=== PATIENT | female | born 1935 | race Caucasian/White ===

== ENCOUNTER 2016-08-18 02:02 | Observation (INO) | payer OTHER, MEDICARE ==
[~2016-08-18] VITALS: Ht 157.5 cm; Wt 64.9 kg
[~2016-08-18 02:02] MED LIST: ADVAIR 250-501 EACH INH; ADVAIR DISKU 11 UNIT; ADVAIR DISKUS 21 DSK PO; AMBIEN (MONOGRAP5 MG PO; AUGMENTIN 875-1 EACH PO; AUGMENTIN 875875 MG PO; CHILDREN'S ASPI81 M1 PO; CIPRO 500MG TA500 MG PO; CIPROFLOXACIN500 MG PO; COUMADIN 5 MG TA5 MG PO; FLEXERIL10 MG PO; IPRAT-ALBUT 0.5-3 ML INH; LEVOTHYROXINE50 MCG PO; LIDODERM 5% PAT1 PAT EXT; LOVASTATIN40 M1 PO; MOBIC7.5 MG PO; MUCINEX ER600 MG PO; NORVASC5 M1 PO; PERCOCET 325 MG1 TA2 PO; PREDNISONE 20MG20 MG PO; PREDNISONE10 MG PO; PREDNISONE5 M1 PO; PREDNISONE5 MG PO; PROAIR HFA8.5 GM INH; PROBIOTIC & ACI1 CAP PO; TRAMADOL50 MG PO; TYLENOL #31 TAB PO; TYLENOL ARTHRI650 M1 PO; TYLENOL ARTHRI650 MG PO; TYLENOL TAB 32325 MG PO; TYLENOL325 M1 PO; VALIUM 10 MG. T10 MG PO; ZITHROMAX Z-PA250 MG PO
--- NOTE | 2016-08-18 15:41 | RADIOLOGY REPORT ---
EXAMINATION: XR ABDOMEN CLINICAL INDICATION: Right ureteroscopy and lithotripsy. Retrograde and stent insertion in the OR. COMPARISON: Abdominal x-ray 07/20/2016. CT scan of the abdomen and pelvis 04/21/2016. TECHNIQUE: 7 intraoperative fluoroscopic images were obtained. Imaging provided for Dr. Abby Rowley. FINDINGS: The initial image demonstrates a coiled guidewire in the region of the right renal collecting system. There are multiple surgical clips in the right upper quadrant consistent with prior cholecystectomy. The second image demonstrates a catheter and guidewire over the region of the right kidney. Consecutive images demonstrates retrograde pyelogram of the right kidney. The final image demonstrates drainage of contrast from the right renal collecting system, and removal of the guidewire. IMPRESSION: 1. Intraoperative imaging of right retrograde pyelogram and stent.
--- NOTE | 2016-08-18 16:11 | NUR ---
PATIENT ARRIVED TO FLOOR IN STRETCHER WITH DISTRIBUTION, A/OX3, ROOM AIR, IV SITE INTACT, FLUIDS RUNNING. PAIN 2/10 TO RT ABDOMEN, WALKED W ASSIST X1 TO TOILET, VOIDED HEMATURIC URINE, EXPECTED AFTER PROCEDURE. SKIN INTACT, ORIENTED TO ROOM, BED ALARM PLACED, BED IN LOW, LOCKED POSITION.
[2016-08-18 16:29] VITALS: BP 118/58
[2016-08-19 00:17] VITALS: BP 134/64
[2016-08-19] MEDS ORDERED: FLOMAX0.4 M1 PO (07:37)
--- NOTE | 2016-08-19 07:40 | Patient Discharge Instructions ---
Discharge Instructions General Discharge Information You were seen/treated for: RIGHT KIDNEY STONE You had these procedures: RIGHT URETEROSCOPY, LASER LITHOTRIPSY, URETERAL STENT PLACEMENT Watch for these problems: FEVER GREATER THAN 101F, ABDOMINAL PAIN, BACK PAIN Special Instructions: BEGIN TAKING FLOMAX DAILY Diet Continue normal diet: Yes Activity Full Activity/No Limits: Yes Acute Coronary Syndrome Inclusion Criteria At DC or during hospital stay patient has or had the following: ACS DIAGNOSIS No Discharge Core Measures Meds if any: Prescribed or Continued at Discharge Meds if any: NOT Prescribed or Continued at Discharge Congestive Heart Failure Inclusion Criteria At DC or during hospital stay patient has or had the following: CHF DIAGNOSIS No Discharge Core Measures Meds if any: Prescribed or Continued at Discharge Meds if any: NOT Prescribed or Continued at Discharge Cerebrovascular accident Inclusion Criteria At DC or during hospital stay patient has or had the following: CVA/TIA Diagnosis No Discharge Core Measures Meds if any: Prescribed or Continued at Discharge Meds if any: NOT Prescribed or Continued at Discharge Venous thromboembolism Inclusion Criteria VTE Diagnosis No VTE Type NONE VTE Confirmed by (Test) NONE Discharge Core Measures - Per Current guidelines, there needs to be overlap - treatment for the first 5 days of Warfarin therapy. - If discharged on Warfarin prior to 5 days of - overlap therapy, the patient will need to be - assessed for post discharge needs including - *Post discharge parental anticoagulation - *Warfarin and/or parental anticoagulation education - *Follow up date to check INR post discharge At least 5 days overlap therapy as Inpatient No Meds if any: Prescribed or Continued at Discharge Note: Overlap Therapy is Warfarin and Anticoagulant Meds if any: NOT Prescribed or Continued at Discharge
[2016-08-19 08:00] VITALS: BP 128/60
--- NOTE | 2016-08-19 12:15 | NUR ---
NURSING NOTE: PATIENT DISCHARGED TO HOME SELF CARE THIS AFTERNOON. PATIENT A/OX3, DENIES PAIN AT THIS TIME. IV DISCONTINUED AT THIS TIME. ALL PAPERWORK GIVEN AND EDUCATED TO PATIENT AND SON. PRESCRIPTION PICKED UP BY DAUGHTER FROM PHARMACY LAST EVENING PER PATIENT AND PATIENT'S SON. ALL BELONGINGS LEFT WITH PATIENT. PATIENT LEFT FLOOR VIA WHEELCHAIR WITH VOLUNTEER AND FAMILY.
--- NOTE | 2016-08-23 10:42 | Operative Report ---
Operative/Inv Procedure Report Surgery Date: 08/18/16 Name of Procedure: right ureteroscopy with laser lithotripsy, stone fragment removal, retrograde pyelogram and stent placement Pre-Operative Diagnosis: right renal stone Post-Operative Diagnosis: same Estimated Blood Loss: scant Surgeon/Technology Applications Engineer: ERIC HARDY MD Anesthesia: laryngeal mask airway Drains: [id number] Specimens: stone fragments Complications: none Condition: stable Operative Indication: right renal stone with two failed ESWls Operative/Procedure Note Note: 81yo female with two ESWLs with no change in her right kidney stone. She was then counseled about right ureteroscopy with laser lithotripsy. Discussed the hardness of her stone given the two failed ESWLs. Answered all questions. Consented for right URS with laser lithotripsy, stone extraction, stent placement, possible retrorgrade pyelogram Patient identified in the holding area and taken to the operating room. She was placed on the operating table in the supine position. Time out was performed and IV antibiotics were given. An LMA was placed and the patient was positioned in the dorsal lithotomy position. She was prepped and draped in the standard sterile fashion. Cystoscopy was performed first and a sensor guidewire was placed without difficulty. A Coloplast ureteral access sheath was then used to place the second wire. The flexible digital scope was then placed into the renal pelvis. Unfortunately the Coloplast sheath was too long and cunbersome to use during the surgery so it was switched out for a Bard ureteral access sheath. The stone was easily identified in the renal pelvis toward the lower pole. It was white crystalline in appearance and very hard. It was lasered with a 400 micron fiber to smaller fragments. These fragments were then removed using a no tip Colopast basket. The fragments were sent for anlaysis. No large fragments remained only dustings of the stone. All the calyces were examined twice to see if any fragments escaped. A retrograde pyelogram was performed and no filling defects to suggest remaining fragments were appreciated. The ureteral access sheath was removed while viewing the ureteral outoing simultaneously. The remaining wire was then used to place a silicone Coloplast ureteral stent 6x24cm in length with the cystoscope. The patient tolerated the procedure well. Findings: large white crystalline stone in the renal pelvis toward the lower pole.
== END 2016-08-19 12:20 ==
LOC: ENRESERVTM → ENRESERVDT → STS 02:02 → PACUH 14:45 → ENPENDDIS 14:45 → 2NB 16:00
PROVIDERS: ADMIT Urology
DX: N20.0 Calculus of kidney (principal); J44.9 Chronic obstructive pulmonary disease, unspecified; M06.9 Rheumatoid arthritis, unspecified; E03.9 Hypothyroidism, unspecified; I10 Essential (primary) hypertension; M54.30 Sciatica, unspecified side; M81.0 Age-related osteoporosis without current pathological fracture; E78.5 Hyperlipidemia, unspecified
CPT/HCPCS: 74000; 82355; J0131; J0690; J1630; J2405; J3490; J7512

== ENCOUNTER 2016-09-03 10:04 | Inpatient (IN) | payer OTHER, MEDICARE ==
[~2016-09-03] VITALS: Ht 157.5 cm; Wt 63.5 kg
[~2016-09-03 10:04] MED LIST changes: +FLOMAX0.4 M1 PO
--- NOTE | 2016-09-03 10:08 | NUR ---
PER DAUGHTER, NAUSEA AND COUGH, VOMITING LAST NIGHT, TEMP THIS AM, DENIES PAIN APPEARS PALE
--- NOTE | 2016-09-03 10:13 | ED GI/GU/ABDOMINAL COMPLAINT ---
History of Present Illness General Chief Complaint: Nausea, Vomiting, Diarrhea Stated Complaint: NVD Source: patient, family, old records, EMS Exam Limitations: no limitations Allergies Coded Allergies: hydromorphone (From DILAUDID) (Severe, SYNCOPE 04/21/16) morphine (Severe, SYNCOPE 04/21/16) oxycodone (Severe, UNKNOWN 09/19/15) tramadol (Severe, SYNCOPE 04/21/16) Sulfa (Sulfonamide Antibiotics) (Intermediate, HIVES 09/19/15) latex (Intermediate, BAD RASH 06/15/16) shrimp (HIVES, RASH 09/19/15) Reconcile Medications Acetaminophen (Tylenol Arthritis) 650 MG TABLET.ER 1 TAB PO BID PAIN ( Reported) Albuterol Sulfate (Proair Hfa) 8.5 GM HFA.AER.AD 2 PUF INH Q4-6 PRN PRN COPD (Reported) Reason to Stop at ADM: [facility] ORDERS Amlodipine Besylate (Norvasc) 5 MG TABLET 1 TAB PO DAILY HYPERTENSION ( Reported) Aspirin (Children's Aspirin) 81 MG TAB.CHEW 1 TAB PO DAILY HEART (Reported) Fluticasone/Salmeterol (Advair 250-50 Diskus) 1 EACH BLST.W.DEV 1 PUF INH BID COPD (Reported) Reason to Stop at ADM: [facility] ORDERS Ipratropium/Albuterol Sulfate (Iprat-Albut 0.5-3(2.5) MG/3 Ml) 0.5 MG-3 MG (2.5 MG BASE)/3 ML AMPUL.NEB 1 PO PRN SHORTNESS OF BREATH (Reported) Levothyroxine Sodium 50 MCG TABLET 1 TAB PO DAILY AC THYROID (Reported) Lovastatin 40 MG TABLET 1 TAB PO DAILY HYPERCHOLESTEROL (Reported) with food Prednisone 5 MG TABLET 1 TAB PO DAILY COPD/RA (Reported) Tamsulosin HCl (Flomax) 0.4 MG CAP.ER.24H 1 CAP PO DAILY BLADDER Triage Note: PER DAUGHTER, NAUSEA AND COUGH, VOMITING LAST NIGHT, TEMP THIS AM, DENIES PAIN APPEARS PALE Triage Nurses Notes Reviewed? yes ? N Is pt currently ? No Onset: Abrupt Duration: day(s): (2), constant Timing: recent history Quality/Severity: aching Severity Numbers: 6 Location: unknown Radiation: no radiation Activities at Onset: none Prior Abdominal Problems: none Modifying Factors: Worsens With: coughing. Associated Symptoms: nausea/vomiting, COUGH FEVER CHILLS HPI: 81-year-old female with history of COPD kidney stones with recent ureteral stent presents emergency room for evaluation complaining of generalized bodyaches subjective fever chills nausea and vomiting for the past 2 days. She's been unable to tolerate Motrin or Tylenol by mouth. The patient's history is significant in that she recently had a ureteral stent placed by Dr. Rowley last week. Patient denies any urinary symptoms of frequency urgency dysuria. No diarrhea no hematemesis. She does not use O2 at home. The patient reports that she is feeling more short of breath than baseline she is complaining of a nonproductive cough no hemoptysis no chest pain. She states she's been feeling dizzy and lightheaded since the symptoms began. She did receive a flu vaccination this year. (MELI WATT) Vital Signs & Intake/Output Vital Signs & Intake/Output Vital Signs Date Time Temp Pulse Resp B/P Pulse O2 O2 Flow FiO2 Ox Delivery Rate 09/03 1429 98.6 76 16 110/56 96 Nasal 2.0L Cannula 09/03 1414 80 16 96/49 96 Nasal 2.0L Cannula 09/03 1359 78 16 95/50 95 Nasal 2.0L Cannula 09/03 1329 88 106/53 09/03 1321 98.8 100 22 95 Nasal 2.0L Cannula 09/03 1259 88 112/55 09/03 1234 99.0 98 20 09/03 1234 96 Nasal 2.0L Cannula 09/03 1229 82 101/51 09/03 1201 101.0 09/03 1143 95 Nasal 2.0L Cannula 09/03 1140 101.0 112 09/03 1135 115 16 120/54 95 Nasal 2.0L Cannula 09/03 1108 100.8 110 20 120/60 96 Nasal Cannula 09/03 1100 94 Nasal 2.0L Cannula 09/03 1013 102.8 09/03 1006 102.8 130 26 163/71 94 Room Air Past History Travel History Traveled to [place] past 21 day No Medical History Any Pertinent Medical History? 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 FATHER (heart failure from severe asthma). . Hx Contributory? No (MELI WATT) Review of Systems Review of Systems Constitutional: Reports: see HPI. All Other Systems: Reviewed and Negative Comments Review of systems: See HPI, All other systems negative. Constitutional, chills fever, malaise HEENT: no sore throat no congestion, no ear pain Cardiovascular: No chest pain , no palpitation Skin, no rashes, no change in skin Respiratory: dyspnea cough no sputum no hemoptysis GI: nausea vomiting, no diarrhea, no bloating/constipation : No dysuria No hematuria Muscle skeletal: No joint pain, no joint swelling, no back pain, no neck pain, Neurologic: no headache Psych: No stress Heme/endocrine: No bruising no bleeding Immunology: No lymphadenopathy (MELI WATT) Physical Exam Physical Exam General Appearance: well developed/nourished, alert, awake Gastrointestinal: normal bowel sounds, soft, non-tender Comments: Well-developed well-nourished person in no acute distress HEENT: Normal EENT exam; PERRL, EOMI, HEAD is atraumatic. moist mucous membranes. Neck: Supple, no lymphadenopathy, normal range of motion Back: Nontender, no CVA tenderness. Full range of motion Cardiovascular: Regular rate and rhythms no murmurs rubs Respiratory: Mild respiratory distress. Patient speaking in full complete sentences. Bilateral wheezing no rales rhonchi Abdomen: Soft, nontender nondistended, no appreciable organomegaly. Normal bowel sounds. No rebound/guarding, No ascites. Extremity: No edema, full range of motion of extremities Neuro: Alert oriented x3, motor sensory normal, There were no obvious focal neurologic abnormalities. Skin: No appreciable rash on exposed skin, skin is warm and dry. Psych: Mood and affect is normal, memory and judgment is normal. Core Measures ACS in differential dx? Yes Severe Sepsis Present: No Septic Shock Present: No (NAZARIO BECK,MELI) Progress Differential Diagnosis: AMI, bowel obstruction, diverticulitis, ischemic bowel, inflamm bowel dis, kidney stone, pancreatitis, peptic ulcer, PUD/GERD, perforated viscous, UTI/pyelo, SEPSIS INFLUENZA Diagnostic Imaging: Viewed by Me: Radiology Read, CT Scan. Discussed w/RAD: Radiology Read, CT Scan. Radiology Impression: PATIENT: COURTNEY GEIGER PRESENT AGE: 81 PATIENT ACCOUNT NO: [id number] : 35 LOCATION: ER ORDERING PHYSICIAN: MELI BECK SERVICE DATE: 09/03/16 EXAM TYPE: RAD - XRY- PORTABLE CHEST XRAY EXAMINATION: XR PORTABLE CHEST CLINICAL INFORMATION: Fever, cough COMPARISON: Chest radiographs 04/21/2016, 03/13/2016 TECHNIQUE: Portable upright AP view of the chest was obtained. FINDINGS: There is mild hyperinflation similar to prior studies. The lungs appear grossly clear with no vascular congestion, airspace consolidation, or effusion. Cardiac and hilar and mediastinal contours and bony structures are stable. IMPRESSION: Lungs clear. No acute intrathoracic disease. DICTATED BY: YENI COPELAND MD DATE/TIME DICTATED :09/03/161046 DIGESTER CAPPER:ALINE DATE/TIME TRANSCRIBED:09/03/161046 CONFIDENTIAL, DO NOT COPY WITHOUT APPROPRIATE AUTHORIZATION. < Electronically signed in Other Vendor System> SIGNED BY: YENI COPELAND MD 09/03/16 1054, PATIENT: COURTNEY GEIGER PRESENT AGE: 81 PATIENT ACCOUNT NO: [id number] : 35 LOCATION: ER ORDERING PHYSICIAN: MELI BECK SERVICE DATE: 09/03/16 EXAM TYPE: CAT - CT ABD & PELVIS W/O IV CONTRAS EXAMINATION: CT ABDOMEN AND PELVIS WITHOUT CONTRAST CLINICAL INFORMATION: Nausea, vomiting, diarrhea. Recent ureteral stent placement. Evaluate for pyelonephritis or other intra-abdominal pathology. COMPARISON: CT scan of the abdomen and pelvis dated 04/21/2016 and 10/19/2012. TECHNIQUE: Multidetector volumetric imaging was performed from the superior aspect of the liver through the pubic symphysis. Sagittal and coronal reformatted images were obtained on the technologist workstation. DLP: 285.48 mGy-cm. FINDINGS: LUNG BASES: Tubular bronchiectasis is again seen in the right middle lobe, right lower lobe and lingula with associated patchy groundglass opacities, unchanged compared to the prior CT scan. LIVER, GALLBLADDER, AND BILIARY TREE: The liver is normal in size, shape, and attenuation. No focal hepatic lesion on noncontrast imaging. No biliary ductal dilatation is present. The gallbladder is surgically absent with multiple lindsay seen in the gallbladder fossa. PANCREAS: Diffusely atrophic but otherwise unremarkable on noncontrast exam. SPLEEN, ADRENAL GLANDS: Unremarkable on noncontrast imaging. KIDNEYS, URETERS, AND BLADDER: The kidneys are normal in size, shape, and attenuation. A double-J right ureteral stent is in place with the proximal pigtail in the right renal pelvis and the distal pigtail in the bladder. There are some amorphous hyperdensities seen within the mid and lower pole calyces of the right kidney, possibly representing milk of calcium or debris from previously seen stones. In addition, in the mid right kidney, there is a 0.5 x 0.4 cm calcification seen, unchanged from prior exam. No definite ureteral or bladder calculi are seen. No right-sided hydronephrosis or hydroureter is seen. No perinephric stranding. The left kidney is unremarkable with no calculi or hydronephrosis is seen. Left ureter is decompressed and unremarkable. GASTROINTESTINAL TRACT: There is a suture line seen in the mid sigmoid colon, appearing unremarkable. Diffuse moderate colonic diverticulosis is seen with no evidence of acute diverticulitis. The cecum is mildly fluid-filled but otherwise unremarkable. The small and large bowel are otherwise unremarkable. The appendix is not seen. ABDOMINAL WALL: There is a small fat-containing umbilical hernia. LYMPH NODES, VASCULAR: Moderate atherosclerotic calcifications of the aorta are noted. There is an infrarenal abdominal aortic aneurysm with maximal AP diameter of 3.5 cm, unchanged. No periaortic collections. No significant abdominal or pelvic adenopathy or free fluid collection. PELVIC VISCERA: The patient is status post hysterectomy and presumably oophorectomy. No suspicious adnexal mass. OSSEOUS STRUCTURES: Mild vertebral spondylosis is seen in the lower lumbar spine and moderate facet arthropathy is noted. A left hip compression screw and intramedullary chino are partially imaged. IMPRESSION: 1. Double-J right ureteral stent is in place with no evidence of residual hydronephrosis. 2. Mid right renal calculus is unchanged. Other previously seen larger calcifications are no longer visualized and instead, there is small stone debris versus milk of calcium seen in the mid and lower pole calyces. 3. Without the benefit of intravenous contrast, evaluation for pyelonephritis is limited. However, no secondary signs of pyelonephritis are noted. 4. No change in infrarenal abdominal aortic aneurysm, measuring 3.5 cm in maximal diameter. 5. 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 6. Moderate colonic diverticulosis. DICTATED BY: ZUNILDA BRITO MD DATE/TIME DICTATED:09/03/161215 DIGESTER CAPPER:ALINE DATE/TIME TRANSCRIBED:1215 CONFIDENTIAL, DO NOT COPY WITHOUT APPROPRIATE AUTHORIZATION. < Electronically signed in Other Vendor System> SIGNED BY: ZUNILDA BRITO MD 09/03/16 1239 Initial ED EKG: sinus tach at 100, nonspecific ST segment changes normal axis Rhythm Strip: normal sinus rhythm (MELI WATT) Plan of Care: Orders Procedure Date/time Status CBC WITHOUT DIFFERENTIAL 09/04 0600 Active BASIC ELECTROLYTES PLUS BUN&CR 09/04 0600 Active Heart Healthy Diet 09/03 D Active Pathway - chart 09/03 1353 Active House Staff 09/03 1353 Active Patient Data 09/03 1353 Active Code Status 09/03 1353 Active Patient Data 09/03 1341 Active Patient Data 09/03 1339 Active LACTIC ACID 09/03 1314 Active VIRAL CULTURE 09/03 1111 Active CULTURE,URINE 09/03 1038 Active URINALYSIS 09/03 1038 Complete EKG 09/03 1023 Active BLOOD CULTURE 09/03 1014 Active TROPONIN LEVEL 09/03 1014 Complete LIPASE 09/03 1014 Complete LACTIC ACID 09/03 1014 Complete COMPREHENSIVE METABOLIC PANEL 09/03 1014 Complete CBC WITHOUT DIFFERENTIAL 09/03 1014 Complete AMYLASE 09/03 1014 Complete RAPID VIRAL INFLUENZA A 09/03 1009 Complete VTE Mechanical Prophylaxis 09/03 UNK Active Current Medications Sig/Maya Start time Last Medication Dose Stop Time Status Admin Enoxaparin Sodium 40 MG DAILY 09/04 1000 AC (Lovenox) Sodium Chloride 1,000 ML ONCE ONE 09/03 1500 AC (Normal Saline 0.9%) 09/03 2138 Acetaminophen 650 MG Q6P PRN 09/03 1400 AC (Tylenol) Acetaminophen 1,000 MG Q8 PRN 09/03 1400 AC (Ofirmev) Ibuprofen 600 MG Q6P PRN 09/03 1400 AC (Motrin) Oseltamivir Phosphate 75 MG ONCE ONE 09/03 1145 CAN (Tamiflu 75MG) 09/03 1146 Ondansetron HCl 4 MG ONCE ONE 09/03 1030 CAN (Zofran) 09/03 1031 Laboratory Tests 09/03/16 1111: Virus Culture Pending 09/03/16 1108: Urine Color YEL, Urine Clarity CLDY H, Urine pH 6.5, Ur Specific [place] 1.020, Urine Protein 100 H, Urine Ketones NEG, Urine Nitrite NEG, Urine Bilirubin NEG, Urine Urobilinogen 0.2, Ur Leukocyte Esterase MOD H, Ur Microscopic SEDIMENT EXAMINED, Urine WBC PACKD H, Ur Epithelial Cells FEW, Urine Hemoglobin LARGE H , Urine Glucose NEG 09/03/16 1014: Anion Gap 15, Estimated GFR 53 L, BUN/Creatinine Ratio 25.0, Glucose 127 H, Lactic Acid 1.8, Calcium 9.3, Total Bilirubin 0.7, AST 55 H, ALT 35, Alkaline Phosphatase 69, Troponin I 0.10, Total Protein 7.4, Albumin 4.1, Globulin 3.3, Albumin/Globulin Ratio 1.2, Amylase < 30 L, Lipase 56, CBC w Diff MAN DIFF ORDERED, RBC 4.63, MCV 90.6, MCH 29.8, RDW 13.6, MPV 7.6, Gran % 86.5 H, Lymphocytes % 9.6 L, Monocytes % 3.6, Eosinophils % 0.1, Basophils % 0.2, Absolute Granulocytes 10.2 H, Segmented Neutrophils 73, Band Neutrophils 13 H, Absolute Lymphocytes 1.1 L, Lymphocytes 8 L, Monocytes 5, Absolute Monocytes 0.4, Absolute Eosinophils 0, Absolute Basophils 0, Metamyelocytes 1, Platelet Estimate ADEQUATE, Normocytic RBCs VERIFIED, Normochromic RBCs VERIFIED, PUBS MCHC 32.9 L Microbiology 09/03 1111 NASOPHARYN: Influenza Virus A & B Rapid Smear - COMP INFLUENZA TYPE A 09/03 1108 URINE ROUT: Urine Culture - RECD 09/03 1025 BLOOD: Blood Culture - RECD 09/03 1014 BLOOD: Blood Culture - RECD Labs ordered old records reviewed patient medicated with Tylenol IV IV fluids DuoNeb ordered; 125 09/03/2016 11:53:02 AM discussed with patient and family at length all lab results of the pending CAT scan case discussed with Dr. Costello Tamiflu 75 mg by mouth ordered I discussed the patient and her family at least all of her lab findings and CT findings need for admission which she is in agreement with. (MELI WATT) Departure Departure Time of Disposition: 1258 Disposition: STILL A PATIENT Condition: Stable Clinical Impression Primary Impression: Influenza Secondary Impressions: COPD exacerbation Referrals: CHAPO CARNEY,ERON Miranda (PCP/Family) Departure Forms: Customer Survey General Discharge Information Admission Note Spoke With: TALI HARRIS MD Documentation of Exam: Documentation of any treatments & extenuating circumstances including Concerns Regarding Discharge (functional status, medication knowledge or non-compliance, living conditions, etc.) that warrant an admission rather than observation: IV steroids IV antibiotics, Tamiflu IV fluids, trend labs antipyretics as needed premature discharge would BE medically harmful (MELI WATT) PA/BALL WINDER Co-Sign Statement Statement: ED Attending supervision documentation- [x] I saw and evaluated the patient. I have also reviewed all the pertinent lab results and diagnostic results. I agree with the findings and the plan of care as documented in the PA's/BALL WINDER's documentation. [] I have reviewed the ED Record and agree with the PA's/BALL WINDER's documentation. [] Additions or exceptions (if any) to the PAs/BALL WINDER's note and plan are summarized below: [] (TARA CARNEY,CIARA Nieves)
[2016-09-03 10:31] LABS: ABSOLUTE BASOPHIL COUNT 0 /CUMM (0.0-0.2); ABSOLUTE EOSINOPHIL COUNT 0 /CUMM (0.0-0.7); ABSOLUTE GRANULOCYTE CT 10.2 /CUMM (1.4-6.5); ABSOLUTE LYMPH COUNT 1.1 /CUMM (1.2-3.4); ABSOLUTE MONOCYTE COUNT 0.4 /CUMM (0.10-0.60); BASOPHIL % 0.2 % (0.0-2.0); EOSINOPHIL % 0.1 % (0-5); GRANULOCYTE % 86.5 % (42.2-75.2); HEMATOCRIT 41.9 % (37-47); MEAN CORPUSCULAR HGB 29.8 PG (27.0-31.0); MEAN CORPUSCULAR HGB CONC 32.9 G/DL (33.0-37.0); MEAN CORPUSCULAR VOLUME 90.6 FL (81.0-99.0); MEAN PLATELET VOLUME 7.6 FL (7.4-10.4); PLATELET COUNT 314 /CUMM (130-400); RBC DISTRIBUTION WIDTH 13.6 % (11.5-14.5); RED BLOOD CELL CT 4.63 /CUMM (4.20-5.40); WHITE BLOOD CELL COUNT 11.8 /CUMM (4.8-10.8)
--- NOTE | 2016-09-03 10:31 | NUR ---
IV ESTABLISHED, PT MEDICATED WITH 1 GM IV TYLENOL, 4 MG ZOFRAN IV. NS INFUSING ORDERED. RT CALLED FOR NEB TX. PCXR AT BEDSIDE.
--- NOTE | 2016-09-03 10:40 | NUR ---
RT AT BEDSIDE FOR NEB TX
--- NOTE | 2016-09-03 10:54 | RADIOLOGY REPORT ---
EXAMINATION: XR PORTABLE CHEST CLINICAL INFORMATION: Fever, cough COMPARISON: Chest radiographs 04/21/2016, 03/13/2016 TECHNIQUE: Portable upright AP view of the chest was obtained. FINDINGS: There is mild hyperinflation similar to prior studies. The lungs appear grossly clear with no vascular congestion, airspace consolidation, or effusion. Cardiac and hilar and mediastinal contours and bony structures are stable. IMPRESSION: Lungs clear. No acute intrathoracic disease.
--- NOTE | 2016-09-03 11:15 | NUR ---
PT STRAIGHT CATHED FOR URINE SPECIMEN, SENT TO LAB
--- NOTE | 2016-09-03 11:20 | NUR ---
ASSUMING CARE OF PT
--- NOTE | 2016-09-03 11:24 | NUR ---
PT TAKEN TO CT SCAN
--- NOTE | 2016-09-03 11:33 | NUR ---
CRITICAL TEST RESULTS [id number] COURTNEY GEIGER 81 F TESTS AND RESULTS: FLU A+ Results received and read back by: NANCY GALLARDO Results received date and time: 09/03/16 1133 The following provider was notified of the results, and read the results back: MELI LANGE Notified date and time: 09/03/16 at 1133
[2016-09-03] MEDS ORDERED: IPRAT-ALBUT 0.5-3 ML PO (12:18)
--- NOTE | 2016-09-03 12:39 | CT SCAN REPORT ---
EXAMINATION: CT ABDOMEN AND PELVIS WITHOUT CONTRAST CLINICAL INFORMATION: Nausea, vomiting, diarrhea. Recent ureteral stent placement. Evaluate for pyelonephritis or other intra-abdominal pathology. COMPARISON: CT scan of the abdomen and pelvis dated 04/21/2016 and 10/19/2012. TECHNIQUE: Multidetector volumetric imaging was performed from the superior aspect of the liver through the pubic symphysis. Sagittal and coronal reformatted images were obtained on the technologist workstation. DLP: 285.48 mGy-cm. FINDINGS: LUNG BASES: Tubular bronchiectasis is again seen in the right middle lobe, right lower lobe and lingula with associated patchy groundglass opacities, unchanged compared to the prior CT scan. LIVER, GALLBLADDER, AND BILIARY TREE: The liver is normal in size, shape, and attenuation. No focal hepatic lesion on noncontrast imaging. No biliary ductal dilatation is present. The gallbladder is surgically absent with multiple lindsay seen in the gallbladder fossa. PANCREAS: Diffusely atrophic but otherwise unremarkable on noncontrast exam. SPLEEN, ADRENAL GLANDS: Unremarkable on noncontrast imaging. KIDNEYS, URETERS, AND BLADDER: The kidneys are normal in size, shape, and attenuation. A double-J right ureteral stent is in place with the proximal pigtail in the right renal pelvis and the distal pigtail in the bladder. There are some amorphous hyperdensities seen within the mid and lower pole calyces of the right kidney, possibly representing milk of calcium or debris from previously seen stones. In addition, in the mid right kidney, there is a 0.5 x 0.4 cm calcification seen, unchanged from prior exam. No definite ureteral or bladder calculi are seen. No right-sided hydronephrosis or hydroureter is seen. No perinephric stranding. The left kidney is unremarkable with no calculi or hydronephrosis is seen. Left ureter is decompressed and unremarkable. GASTROINTESTINAL TRACT: There is a suture line seen in the mid sigmoid colon, appearing unremarkable. Diffuse moderate colonic diverticulosis is seen with no evidence of acute diverticulitis. The cecum is mildly fluid-filled but otherwise unremarkable. The small and large bowel are otherwise unremarkable. The appendix is not seen. ABDOMINAL WALL: There is a small fat-containing umbilical hernia. LYMPH NODES, VASCULAR: Moderate atherosclerotic calcifications of the aorta are noted. There is an infrarenal abdominal aortic aneurysm with maximal AP diameter of 3.5 cm, unchanged. No periaortic collections. No significant abdominal or pelvic adenopathy or free fluid collection. PELVIC VISCERA: The patient is status post hysterectomy and presumably oophorectomy. No suspicious adnexal mass. OSSEOUS STRUCTURES: Mild vertebral spondylosis is seen in the lower lumbar spine and moderate facet arthropathy is noted. A left hip compression screw and intramedullary reynaldo are partially imaged. IMPRESSION: 1. Double-J right ureteral stent is in place with no evidence of residual hydronephrosis. 2. Mid right renal calculus is unchanged. Other previously seen larger calcifications are no longer visualized and instead, there is small stone debris versus milk of calcium seen in the mid and lower pole calyces. 3. Without the benefit of intravenous contrast, evaluation for pyelonephritis is limited. However, no secondary signs of pyelonephritis are noted. 4. No change in infrarenal abdominal aortic aneurysm, measuring 3.5 cm in maximal diameter. 5. 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 6. Moderate colonic diverticulosis.
--- NOTE | 2016-09-03 12:59 | NUR ---
PT RESTING COMFORTABLY. HR 80'S. PERSISTENT INTERMITTENT COUGH REMAINS
--- NOTE | 2016-09-03 14:10 | NUR ---
PT RESTING COMFORTABLY, APPEARS MORE LETHARGIC
--- NOTE | 2016-09-03 14:23 | NUR ---
BED 236
--- NOTE | 2016-09-03 14:26 | NUR ---
HOUSESTAFF AT BEDSIDE.
--- NOTE | 2016-09-03 14:38 | NUR ---
VSS. PT CONVERSIVE, RESTING COMFORTABLY. 96% ON 2LNC
--- NOTE | 2016-09-03 14:55 | NUR ---
REPORT CALLED TO XAVIER EMERY
--- NOTE | 2016-09-03 14:55 | NUR ---
OK TO SENT PT UP AT THIS TIME PER RN. TRANSPORT BOOKED
--- NOTE | 2016-09-03 15:04 | History & Physical ---
[facility] 09/03/16 1503: General Information and HPI MD Statement: I have seen and personally examined COURTNEY GEIGER and documented this H&P. The patient is a 81 year old F who presented with a patient stated chief complaint of malaise, chills, cough. Source of Information: family Exam Limitations: no limitations History of Present Illness: This is a 81-year-old pleasant lady with a past medical history of COPD not on home oxygen, rheumatoid arthritis on prednisone, diverticulitis, hypothyroidism, hypertension, hyperlipidemia, presents to [place] ED with complaints of cough, weakness, lethargy, and chills. She reports that her symptoms started about 5 days ago when she noticed worsening cough with productive phlegm which she was not able to describe the color. Patient reports that her symptoms progressively worsen and on Sunday she started developing generalized weakness with malaise and chills. She also reports fever after using an oral thermometer, but does not recall exactly what the temperature was. She also reports decreased oral intake, and fatigue. Patient reports that today she experienced diarrhea with vomiting and therefore her daughter became concerned and brought her to the ED for evaluation. Additional associated symptoms also include headaches, lightheadedness and dizziness. Patient denies any recent URI, sick contacts, recent travel, chest pain, palpitation, abdominal pain or dysuria. At baseline patient is independent with her ADLs and is able to ambulate freely with any assistance or oxygen supplementation Allergies/Medications Allergies: Coded Allergies: hydromorphone (From DILAUDID) (Severe, SYNCOPE 04/21/16) morphine (Severe, SYNCOPE 04/21/16) oxycodone (Severe, UNKNOWN 09/19/15) tramadol (Severe, SYNCOPE 04/21/16) Sulfa (Sulfonamide Antibiotics) (Intermediate, HIVES 09/19/15) latex (Intermediate, BAD RASH 06/15/16) shrimp (HIVES, RASH 09/19/15) Home Med list Acetaminophen (Tylenol Arthritis) 650 MG TABLET.ER 1 TAB PO BID PAIN ( Reported) Albuterol Sulfate (Proair Hfa) 8.5 GM HFA.AER.AD 2 PUF INH Q4-6 PRN PRN COPD (Reported) Reason to Stop at ADM: TRC NEBS ORDERS Amlodipine Besylate (Norvasc) 5 MG TABLET 1 TAB PO DAILY HYPERTENSION ( Reported) Aspirin (Children's Aspirin) 81 MG TAB.CHEW 1 TAB PO DAILY HEART (Reported) Fluticasone/Salmeterol (Advair 250-50 Diskus) 1 EACH BLST.W.DEV 1 PUF INH BID COPD (Reported) Reason to Stop at ADM: [facility] NEBS ORDERS Ipratropium/Albuterol Sulfate (Iprat-Albut 0.5-3(2.5) MG/3 Ml) 0.5 MG-3 MG (2.5 MG BASE)/3 ML AMPUL.NEB 1 PO PRN SHORTNESS OF BREATH (Reported) Levothyroxine Sodium 50 MCG TABLET 1 TAB PO DAILY AC THYROID (Reported) Lovastatin 40 MG TABLET 1 TAB PO DAILY HYPERCHOLESTEROL (Reported) with food Prednisone 5 MG TABLET 1 TAB PO DAILY COPD/RA (Reported) Tamsulosin HCl (Flomax) 0.4 MG CAP.ER.24H 1 CAP PO DAILY BLADDER Past History Travel History Traveled to [place] past 21 day No Medical History Neurological: 1SCIATICA EENT: cataracts, [place] Cardiovascular: hypertension, hyperlipidemia Respiratory: COPD, pneumonia, pulmonary nodules which have been stable on CT scanning Gastrointestinal: diverticulitis Hepatic: GALL BLADDER REMOVAL Renal: R KIDNEY STONES Musculoskeletal: osteoarthritis, rheumatoid arthritis, sciatica Psychiatric: NONE Endocrine: hypothyroidism, osteoporosis Blood Disorders: NONE Cancer(s): NONE 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 FATHER (heart failure from severe asthma). . Psychosocial History Who Do You Live With? spouse Services at Home: None Primary Language: Occitan Living Will? unknown Power of Automotive Fleet Supervisor/HCP? 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 Ambulation: independent, walker IADLs Independent: shopping, housework, finances, food prep, telephone, transportation , medication admin. Review of Systems Review of Systems Constitutional: Reports: see HPI. All Other Systems: Reviewed and Negative Exam & Diagnostic Data Last 24 Hrs of Vital Signs/I&O Vital Signs Date Time Temp Pulse Resp B/P Pulse O2 O2 Flow FiO2 Ox Delivery Rate 09/03 1645 93 Nasal 2.0L Cannula 09/03 1640 Nasal 2.0L Cannula 09/03 1632 90 118/62 09/03 1515 98.2 90 18 118/62 93 Nasal 2.0L Cannula 09/03 1459 82 16 110/57 96 Nasal 2.0L Cannula 09/03 1444 78 16 115/55 96 Nasal 2.0L Cannula 09/03 1429 98.6 76 16 110/56 96 Nasal 2.0L Cannula 09/03 1414 80 16 96/49 96 Nasal 2.0L Cannula 09/03 1359 78 16 95/50 95 Nasal 2.0L Cannula 09/03 1329 88 106/53 09/03 1321 98.8 100 22 95 Nasal 2.0L Cannula 09/03 1259 88 112/55 09/03 1234 99.0 98 20 09/03 1234 96 Nasal 2.0L Cannula 09/03 1229 82 101/51 09/03 1201 101.0 09/03 1143 95 Nasal 2.0L Cannula 09/03 1140 101.0 112 09/03 1135 115 16 120/54 95 Nasal 2.0L Cannula 09/03 1108 100.8 110 20 120/60 96 Nasal Cannula 09/03 1100 94 Nasal 2.0L Cannula 09/03 1013 102.8 09/03 1006 102.8 130 26 163/71 94 Room Air Intake & Output 09/03 1600 09/03 0800 09/03 0000 Intake Total 2000 Output Total 450 Balance 1550 Intake, IV 2000 Output, Urine 450 Patient 64.864 kg Weight Physical Exam General Appearance Alert, Oriented X3, Cooperative, appears mildly lethargic Skin No Significant Lesion HEENT Atraumatic, PERRLA, EOMI Neck Supple Lymphatic Cervical nl Cardiovascular Regular Rate, Normal S1, Normal S2 Lungs Clear to Auscultation, Normal Air Movement Abdomen Normal Bowel Sounds, Soft, No Tenderness Neurological Normal Speech, Strength at 5/5 X4 Ext, Normal Tone, Sensation Intact Extremities No Clubbing, No Cyanosis, No Tenderness/Swelling Vascular Pulses Symmetrical Last 24 Hrs of Labs/Jag: Laboratory Tests 09/03/16 1111: Virus Culture Pending 09/03/16 1108: Urine Color YEL, Urine Clarity CLDY H, Urine pH 6.5, Ur Specific Stafford 1.020, Urine Protein 100 H, Urine Ketones NEG, Urine Nitrite NEG, Urine Bilirubin NEG, Urine Urobilinogen 0.2, Ur Leukocyte Esterase MOD H, Ur Microscopic SEDIMENT EXAMINED, Urine WBC PACKD H, Ur Epithelial Cells FEW, Urine Hemoglobin LARGE H , Urine Glucose NEG 09/03/16 1014: Anion Gap 15, Estimated GFR 53 L, BUN/Creatinine Ratio 25.0, Glucose 127 H, Lactic Acid 1.8, Calcium 9.3, Total Bilirubin 0.7, AST 55 H, ALT 35, Alkaline Phosphatase 69, Troponin I 0.10, Total Protein 7.4, Albumin 4.1, Globulin 3.3, Albumin/Globulin Ratio 1.2, Amylase < 30 L, Lipase 56, CBC w Diff MAN DIFF ORDERED, RBC 4.63, MCV 90.6, MCH 29.8, RDW 13.6, MPV 7.6, Gran % 86.5 H, Lymphocytes % 9.6 L, Monocytes % 3.6, Eosinophils % 0.1, Basophils % 0.2, Absolute Granulocytes 10.2 H, Segmented Neutrophils 73, Band Neutrophils 13 H, Absolute Lymphocytes 1.1 L, Lymphocytes 8 L, Monocytes 5, Absolute Monocytes 0.4, Absolute Eosinophils 0, Absolute Basophils 0, Metamyelocytes 1, Platelet Estimate ADEQUATE, Normocytic RBCs VERIFIED, Normochromic RBCs VERIFIED, PUBS MCHC 32.9 L Microbiology 09/03 1111 NASOPHARYN: Influenza Virus A & B Rapid Smear - COMP INFLUENZA TYPE A 09/03 1108 URINE ROUT: Urine Culture - RECD 09/03 1025 BLOOD: Blood Culture - RECD 09/03 1014 BLOOD: Blood Culture - RECD Diagnostic Data CXR Results SERVICE DATE: 09/03/16-1023 EXAM TYPE: RAD - XRY-PORTABLE CHEST XRAY EXAMINATION: XR PORTABLE CHEST CLINICAL INFORMATION: Fever, cough COMPARISON: Chest radiographs 04/21/2016, 03/13/2016 TECHNIQUE: Portable upright AP view of the chest was obtained. FINDINGS: There is mild hyperinflation similar to prior studies. The lungs appear grossly clear with no vascular congestion, airspace consolidation, or effusion. Cardiac and hilar and mediastinal contours and bony structures are stable. IMPRESSION: Lungs clear. No acute intrathoracic disease. DICTATED BY: YENI COPELAND MD Assessment/Plan Assessment: This is a 81-year-old lady with a past medical history of COPD is presenting with symptoms suggestive of COPD exacerbation (increased cough, shortness of breath, sputum production). Patient is also found to be influenza positive which may seem to be more consistent with a constellation of symptoms that she is recently experiencing(malaise, fatigue, shortness of breath, decreased appetite). Patient labs were remarkable for mild leukocytosis, chest x-ray was unremarkable. Patient was then admitted to general medicine floor for evaluation and treatment of COPD exacerbation and influenza. Assessment and plan #COPD exacerbation Increased shortness of breath, increased cough, increased sputum production is consistent with COPD exacerbation patient with a history of COPD. Most likely this is in the setting of influenza. Plan Admit to general medicine floor Solu-Medrol 40 mg every 8 TRC nebs O2 supplementation to keep sats above 90 #Influenza Patient rapid flu test was positive and in correlation with the clinical symptoms of malaise, fatigue, shortness of breath cough fever chills. Even though patient's symptoms started on Sunday she reports worsening of her symptoms actually started on Sunday. It is difficult to discern whether patient had COPD exacerbation before having influenza or if influenza started prior to a COPD exacerbation. We'll however treat for the influenza with an assumption of symptoms started on Sunday which is less than 72 hours. Plan Tamiflu 75 mg by mouth twice a day Monitor for fevers #History of hypertension Continue amlodipine #History of hyperlipidemia Continue atorvastatin 10 mg #History of hypothyroidism Continue levothyroxine #History of rheumatoid arthritis Since patient is receiving Solu-Medrol for COPD exacerbation we'll hold off prednisone for now As Ranked By This Provider Problem List: 1. Influenza 2. COPD exacerbation Core Measures/Miscellaneous Acute Coronary Syndrome ACS Diagnosis: No Cerebrovascular Accident CVA/TIA Diagnosis: No Congestive Heart Failure CHF Diagnosis: No Venous Thromboembolism VTE Risk Factors: Acute medical illness, Age > 40 VTE Prophylaxis Ordered Inpt: Mechanical (ALPS/TEDS) No Mech VTE prophylaxis d/t: No contraindications No VTE Pharm Prophylaxis d/t: Refused treatment VTE Diagnosis: No VTE Type: NONE VTE Confirmed by (Test): NONE Severe Sepsis Severe Sepsis Present: No Septic Shock Septic Shock Present: No Miscellaneous Documentation Attending Case Discussed With: TALI HARRIS MD Primary Care Physician: ERON COWAN MD Patient sees these Specialists none Level of Patient Care: General Medicine LUIZ LINARES 09/03/16 1511: Resident Review Statement Resident Statement: examined this patient, discussed with rn internal medicine, agreed with rn internal medicine Other Findings: Patient is a 81 year-old woman past medical history significant for osteoporosis , rheumatoid arthritis on prednisone, hypertension, hyperlipidemia, COPD not on home O2, diverticulitis, hypothyroidism, recently admitted to [facility] in April 2016 due to urinary tract infection and Right renal stone/ hydronephrosis with recent ureteral stent placement by Dr. Rowley presented to the ED with chief complaints of of worsening cough, weakness /lethargy subjective fever chills nausea and vomiting for the past 2 days. As per patient her symptoms started on Sunday when she noticed worsening cough with productive phlegm. On Sunday she started having generalized weakness and malaise with fever chills. Appetite remained poor. Today she had couple of loose watery stools with vomiting and was brought to the ER by her daughter for further evaluation. In the ER patient reported shortness of breath without any chest discomfort.Also reported headaches , or dizziness and lightheaded. Patient denied any urinary complaints. Rapid flu checked in the ER was positive.Patient received flu vaccine this year. On examination General Appearance: Alert, No Acute Distress Skin: Grossly normal HEENT: PEERLA Neck: Supple, No JVD Cardiovascular: Regular Rate, Normal S1, Normal S2, No Murmurs Lungs: Decreased respirations with wheeze on exam Abdomen: Normal Bowel Sounds, Soft, No Tenderness Neurological: Normal Speech, Strength at 5/5 X4 Ext, Cranial Nerves 3-12 NL, Reflexes 2+ Extremities: No Clubbing, No Cyanosis, No Edema Vascular: Normal Pulses Vitals on admission temperature underwent 0.8, pulse 130, respiratory rate 26, blood pressure 163/71 history mother 92% on 2 L Pertinent labs on admission: Leukocytosis with bandemia 13, normal BEP ,BUN: 25 with creatinine of 1, 1, urinalysis showed moderate leukocyte esterase with negative nitrite. Chest x-ray: No acute cardiogram process: Assessment and plan: 1. Acute influenza infection 2. Acute respiratory failure due to COPD exacerbation 3. History of hypertension and hyperlipidemia 4. History of rheumatoid arthritis 5. History of hypothyroidism Plan 1. Acute influenza infection: * Rapid flu positive. * Provided her symptoms gotten worse in the last 48-72 hours we will treat her with Tamiflu 30 mg twice a day(reduced dose according to creatinine clearance). * Keep the patient in isolation (Contact and respiratory precautions). 2. Acute respiratory failure due to COPD exacerbation: * Patient received one-time dose of IV Solu-Medrol 125 mg in the ED and her symptoms improved Will continue with IV Solu-Medrol 40 mg every 8. * No need of azithromycin for now. * Continue home medications including Advair and ipratropium * TRC and nebs as needed * Robitussin with codeine * Continue oxygen to keep saturations above 92%. 3. History of hypertension and hyperlipidemia. * Continue amlodipine and statins. 4. History of rheumatoid arthritis: * Hold home dose of prednisone as patient is on IV Solu-Medrol 5. History of hypothyroidism: * Continue home dose of levothyroxine 6. DVT prophylaxis with Lovenox 7. Mild to moderate pain controlled with Tylenol and ibuprofen. 8. Patient is DNR/DNI TALI HARRIS MD 09/03/16 5205: Attending MD Review Statement Attending Statement Attending MD Statement: examined this patient, discuss w/resident/PA/FISH HATCHERY SUPERINTENDENT, agreed w/resident/PA/FISH HATCHERY SUPERINTENDENT, reviewed EMR data (avail), amended to note Attending Assessment/Plan: 81F PMH HTN, HLD, COPD, rheumatoid arthritis on chronic Predinsone admitted with dyspnea, productive cough, generalized weakness and malaise, and myalgia. Rapid flu positive. Mild wheezing bilaterally, not on oxygen at home but requiring 2L NC to maintain 93% saturation. Labs show leukocytosis. Diarrhea started yesterday but none since coming to ED. Improved after Solumedrol and breathing treatments. 1. Influenza 2. ACute exacerbation of COPD 3. Acute hypoxemic respiratory failure Plan - Admit to general medicine - Start Tamiflu - Blood and sputum cultures - Solumedrol 40mg q8h - TRC/nebulizers - Continue home medications - DVT PPx
[2016-09-03 15:15] VITALS: BP 118/62
--- NOTE | 2016-09-03 16:54 | NUR ---
15:15- PT ARRIVED TO FLOOR VIA STRETCHER FROM ER. REPORT REC'D FROM NOÉ REY RN. PT A/V/OX3. O2 2L NC. NON PRODUCTIVE COUGH. PT WHEEZING IN ALL LUNG GONCAVLES. RESPIRATORY CALLED FOR TREATMENT. AX1 TO BATHROOM. VSS. BUTTOCKS RED, BLANCHABLE, INTACT. WILL ENCOURAGE REPOSITIONING. DR. LAM NOTIFIED [facility] HELD FOR HYPOTENSION IN ER. B/P NOW 118/62. PT ORIENTED TO ROOM AND CALL LIGHT FOR ASSIST.
[2016-09-03 23:09] VITALS: BP 110/80
[2016-09-04 06:17] VITALS: BP 100/60
[2016-09-04 08:09] LABS: ABSOLUTE BASOPHIL COUNT 0 /CUMM (0.0-0.2); ABSOLUTE EOSINOPHIL COUNT 0 /CUMM (0.0-0.7); ABSOLUTE MONOCYTE COUNT 0.3 /CUMM (0.10-0.60); BASOPHIL % 0 % (0.0-2.0); EOSINOPHIL % 0 % (0-5)
[2016-09-04 08:50] LABS: ABSOLUTE GRANULOCYTE CT 13.6 /CUMM (1.4-6.5); ABSOLUTE LYMPH COUNT 0.6 /CUMM (1.2-3.4); GRANULOCYTE % 93.6 % (42.2-75.2); MEAN CORPUSCULAR HGB 30.6 PG (27.0-31.0); MEAN CORPUSCULAR HGB CONC 33.4 G/DL (33.0-37.0); MEAN CORPUSCULAR VOLUME 91.7 FL (81.0-99.0); MEAN PLATELET VOLUME 7.7 FL (7.4-10.4); PLATELET COUNT 230 /CUMM (130-400); RBC DISTRIBUTION WIDTH 13.8 % (11.5-14.5); RED BLOOD CELL CT 3.57 /CUMM (4.20-5.40); WHITE BLOOD CELL COUNT 14.5 /CUMM (4.8-10.8)
[2016-09-04 09:00] LABS: HEMATOCRIT 32.7 % (37-47)
--- NOTE | 2016-09-04 10:44 | PN- Housestaff ---
Subjective Follow-up For: exacerbation of COPD Subjective: Patient is seen and examined at bedside. She reports her breathing is much better. She denies any fever, chills, increased shortness of breath, palpitation, joint pains, abdominal pain or dysuria. No acute overnight event reported by nursing staff. Review of Systems Constitutional: Reports: no symptoms. Objective Last 24 Hrs of Vital Signs/I&O .. Physical Exam General Appearance: Alert, Oriented X3, Cooperative Skin: No Significant Lesion Cardiovascular: Regular Rate, Normal S1, Normal S2 Lungs: very faint expiratory wheezes Abdomen: Normal Bowel Sounds, Soft, No Tenderness Assessment/Plan Assessment: This is a 81-year-old lady with a past medical history of COPD is presenting with symptoms suggestive of COPD exacerbation (increased cough, shortness of breath, sputum production). Patient is also found to be influenza positive which may seem to be more consistent with a constellation of symptoms that she is recently experiencing(malaise, fatigue, shortness of breath, decreased appetite). Patient labs were remarkable for mild leukocytosis, chest x-ray was unremarkable. Patient was then admitted to general medicine floor for evaluation and treatment of COPD exacerbation and influenza. Assessment and plan #COPD exacerbation Patient is reporting improvement in her symptoms. Plan We'll continue Zithromax 500 mg for 3 days Will decrease Solu-Medrol to 40 every 12 with a plan to transition to oral rapid taper tomorrow TR nebs O2 supplementation to keep sats above 90 #Influenza Patient rapid flu test was positive and in correlation with the clinical symptoms of malaise, fatigue, shortness of breath cough fever chills. Even though patient's symptoms started on Sunday she reports worsening of her symptoms actually started on Sunday. It is difficult to discern whether patient had COPD exacerbation before having influenza or if influenza started prior to a COPD exacerbation. We'll however treat for the influenza with an assumption of symptoms started on Sunday which is less than 72 hours. Plan Continue Tamiflu 75 mg by mouth twice a day (day2) Monitor for fevers #History of hypertension Continue amlodipine #History of hyperlipidemia Continue atorvastatin 10 mg #History of hypothyroidism Continue levothyroxine #History of rheumatoid arthritis Since patient is receiving Solu-Medrol for COPD exacerbation we'll hold off prednisone for now Problem List: 1. Acute exacerbation of chronic obstructive airways disease 2. Influenza Pain Ratin Pain Location: none Pain Goal: Remain pain free Pain Plan: pain pathway Tomorrow's Labs & Rationales: cbc
[2016-09-04 14:15] VITALS: BP 122/70
--- NOTE | 2016-09-04 16:20 | PN- Att Addend ---
Attending MD Review Statement Attending Statement Attending MD Statement: examined this patient, discuss w/resident/PA/CABLE PLACER, agreed w/resident/PA/CABLE PLACER, reviewed EMR data (avail), discussed w/nursing, discussed w/ case mgmt Attending Assessment/Plan: Laboratory Tests 09/04/16 0650: Anion Gap 10, Estimated GFR > 60, BUN/Creatinine Ratio 27.1 H, CBC w Diff MAN DIFF ORDERED, RBC 3.57 L, MCV 91.7, MCH 30.6, RDW 13.8, MPV 7.7, Gran % 93.6 H , Lymphocytes % 4.2 L, Monocytes % 2.2, Eosinophils % 0, Basophils % 0 L, Absolute Granulocytes 13.6 H, Segmented Neutrophils 85 H, Band Neutrophils 9 H, Absolute Lymphocytes 0.6 L, Lymphocytes 5 L, Monocytes 1 L, Absolute Monocytes 0.3, Absolute Eosinophils 0, Absolute Basophils 0, Platelet Estimate ADEQUATE, Normocytic RBCs VERIFIED, Normochromic RBCs VERIFIED, PUBS MCHC 33.4 Vital Signs Date Time Temp Pulse Resp B/P Pulse O2 O2 Flow FiO2 Ox Delivery Rate 09/04 1415 98.0 82 19 122/70 97 09/04 1015 100/60 09/04 0848 99 Nasal 2.5L Cannula 09/04 0617 98.2 72 20 100/60 97 Nasal 2.5L Cannula 09/04 0000 Nasal 2.0L Cannula 09/03 2309 97.9 69 20 110/80 97 Nasal Cannula 09/03 1645 93 Nasal 2.0L Cannula 09/03 1640 Nasal 2.0L Cannula 09/03 1632 90 118/62 81-year-old female with the past medical history of rheumatoid arthritis COPD hyperlipidemia and hypertension who was admitted with chief complaint of productive cough for 5 days with fever. Patient found to have influenza positive-type A, was started on Tamiflu and for her COPD exacerbation was put on IV steroids and Zithromax. Will continue with current management and follow-up and see how she does. Discussed with patient the care plan.
[2016-09-04 23:30] VITALS: BP 124/72
[2016-09-05 06:54] VITALS: BP 156/78
--- NOTE | 2016-09-05 08:48 | PN- Housestaff ---
Subjective Follow-up For: Acute exacerbation of COPD Influenza Subjective: Patient is seen and examined at bedside. Even though she states that her breathing is significantly better she still complains of dyspnea on minimal exertion including going to the bathroom. She however denies any acute complaint of chest pain, palpitation, fever, chills, nausea, vomiting, abdominal pain or dysuria. No Acute overnight events noted by nursing staff. Review of Systems Constitutional: Reports: see HPI. Objective Last 24 Hrs of Vital Signs/I&O Vital Signs Date Time Temp Pulse Resp B/P Pulse O2 O2 Flow FiO2 Ox Delivery Rate 09/05 1600 Nasal 1.0L Cannula 09/05 1424 98.0 80 18 140/80 91 09/05 1400 94 Nasal 2.0L Cannula 09/05 1220 156/78 09/05 0859 97 Nasal 1.0L Cannula 09/05 0654 98.5 77 22 156/78 94 Nasal 1.0L Cannula 09/05 0000 95 Nasal 1.0L Cannula 09/04 2330 98.7 80 18 124/72 95 Nasal 1.0L Cannula 09/04 1835 96 Nasal 1.0L Cannula Intake & Output 09/05 1600 09/05 0800 09/05 0000 Intake Total 780 130 500 Output Total 475 Balance 305 130 500 Intake, IV 300 10 20 Intake, Oral 480 120 480 Number 1 Bowel Movements Output, Urine 475 Physical Exam General Appearance: Alert, Oriented X3, Cooperative, No Acute Distress Other Physical Findings: General Appearance: Alert, Oriented X3, Cooperative Skin: No Significant Lesion Cardiovascular: Regular Rate, Normal S1, Normal S2 Lungs: very faint expiratory wheezes Abdomen: Normal Bowel Sounds, Soft, No Tenderness Assessment/Plan Assessment: This is a 81-year-old lady with a past medical history of COPD is presenting with symptoms suggestive of COPD exacerbation (increased cough, shortness of breath, sputum production). Patient is also found to be influenza positive which may seem to be more consistent with a constellation of symptoms that she is recently experiencing(malaise, fatigue, shortness of breath, decreased appetite). Patient labs were remarkable for mild leukocytosis, chest x-ray was unremarkable. Patient was then admitted to general medicine floor for evaluation and treatment of COPD exacerbation and influenza. Assessment and plan #COPD exacerbation Patient is reporting improvement in her dyspnea while at rest. However she is still short of breath on minimal ambulation. Plan We'll continue Zithromax 500 mg Will switch to Solu-Medrol IV to prednisone 40 mg in anticipation of a rapid taper during discharge TRC nebs O2 supplementation to keep sats above 90 #Influenza Patient rapid flu test was positive and in correlation with the clinical symptoms of malaise, fatigue, shortness of breath cough fever chills. Even though patient's symptoms started on Sunday she reports worsening of her symptoms actually started on Sunday. It is difficult to discern whether patient had COPD exacerbation before having influenza or if influenza started prior to a COPD exacerbation. We'll however treat for the influenza with an assumption of symptoms started on Sunday which is less than 72 hours. Plan Continue Tamiflu 75 mg by mouth twice a day (day3) Monitor for fevers #Acute hypoxic respiratory failure Patient is deciding below 88% on minimal ambulation to the bathroom. Of note, patient was not requiring oxygen at home. It is very likely the patient will require home oxygen, we will defer that decision for tomorrow when we obtain stats on ambulation. #History of hypertension Continue amlodipine #History of hyperlipidemia Continue atorvastatin 10 mg #History of hypothyroidism Continue levothyroxine #History of rheumatoid arthritis Prednisone Current dose for COPD is adequate for Problem List: 1. Acute exacerbation of chronic obstructive airways disease 2. Influenza Pain Ratin Pain Location: none Pain Goal: Pain 4 or less Pain Plan: per pain pathway Tomorrow's Labs & Rationales: cbc bep
[2016-09-05 09:10] LABS: ABSOLUTE BASOPHIL COUNT 0 /CUMM (0.0-0.2); ABSOLUTE EOSINOPHIL COUNT 0 /CUMM (0.0-0.7); ABSOLUTE GRANULOCYTE CT 15.4 /CUMM (1.4-6.5); ABSOLUTE LYMPH COUNT 0.6 /CUMM (1.2-3.4); ABSOLUTE MONOCYTE COUNT 0.5 /CUMM (0.10-0.60); BASOPHIL % 0 % (0.0-2.0); EOSINOPHIL % 0 % (0-5); GRANULOCYTE % 93.6 % (42.2-75.2); HEMATOCRIT 35.1 % (37-47); MEAN CORPUSCULAR HGB CONC 32.8 G/DL (33.0-37.0); MEAN CORPUSCULAR VOLUME 91.5 FL (81.0-99.0); MEAN PLATELET VOLUME 7.9 FL (7.4-10.4); PLATELET COUNT 249 /CUMM (130-400); RBC DISTRIBUTION WIDTH 13.6 % (11.5-14.5); RED BLOOD CELL CT 3.83 /CUMM (4.20-5.40)
[2016-09-05 09:49] LABS: WHITE BLOOD CELL COUNT 16.4 /CUMM (4.8-10.8)
--- NOTE | 2016-09-05 13:37 | Admission Certification ---
Admission Certification Certification Statement - As attending physician, I certify that at the time of - admission, based on clinical presentation, severity of - symptoms, need for further diagnostic testing and - therapeutic interventions, and risk of adverse outcomes - without in-hospital treatment, in my clinical assessment, - this patient requires an acute hospital stay for a minimum - of two nights or longer. I have also considered psychsocial - factors such as support system, advanced age, financial - issues, cognitive issues, and failed out-patient treatments, - past re-admission history, safety of patient, and lack of - compliance as applicable. Specific rationale supporting this admission is: Influenza with COPD exacerbation and hypoxia
[2016-09-05 14:24] VITALS: BP 140/80
--- NOTE | 2016-09-05 14:26 | PN- Att Addend ---
Attending MD Review Statement Attending Statement Attending MD Statement: examined this patient, discuss w/resident/PA/TOBACCO CUTTER, agreed w/resident/PA/TOBACCO CUTTER, reviewed EMR data (avail), discussed w/nursing Attending Assessment/Plan: Laboratory Tests 09/05/16 0750: Anion Gap 14, Estimated GFR > 60, BUN/Creatinine Ratio 30.0 H, CBC w Diff NO MAN DIFF REQ, RBC 3.83 L, MCV 91.5, MCH 30.0, RDW 13.6, MPV 7.9, Gran % 93.6 H , Lymphocytes % 3.4 L, Monocytes % 3.0, Eosinophils % 0, Basophils % 0 L, Absolute Granulocytes 15.4 H, Absolute Lymphocytes 0.6 L, Absolute Monocytes 0.5, Absolute Eosinophils 0, Absolute Basophils 0, PUBS MCHC 32.8 L Vital Signs Date Time Temp Pulse Resp B/P Pulse O2 O2 Flow FiO2 Ox Delivery Rate 09/05 1220 156/78 09/05 0859 97 Nasal 1.0L Cannula 09/05 0654 98.5 77 22 156/78 94 Nasal 1.0L Cannula 09/05 0000 95 Nasal 1.0L Cannula 09/04 2330 98.7 80 18 124/72 95 Nasal 1.0L Cannula 09/04 1835 96 Nasal 1.0L Cannula 81-year-old female with the past medical history of rheumatoid arthritis ,COPD , hyperlipidemia and hypertension who was admitted with chief complaint of productive cough for 5 days with fever. Patient found to have influenza positive-type A, was started on Tamiflu and for her COPD exacerbation was put on IV steroids and Zithromax. Influenza Type A- droplet precautions and cont tamiflu. COPD exacerbation with hypoxic respiratory failure- will try to wean her off oxygen. Taper steroids to 40mg po prednisone. Discussed with patient the care plan. Possible dc tomorrow.
[2016-09-05 22:20] VITALS: BP 142/64
[2016-09-06 06:27] VITALS: BP 122/70
[2016-09-06] MEDS ORDERED: TAMIFLU30 M1 PO (06:37)
--- NOTE | 2016-09-06 06:41 | Patient Discharge Instructions ---
Discharge Instructions General Discharge Information You were seen/treated for: Influenza. COPD exacerbation Watch for these problems: Productive cough, chest pain. Fevers, chills, worsening shortness of breath Special Instructions: Please take all medications as directed. Please follow-up with her PCP within one week of discharge. Diet Continue normal diet: Yes Activity Full Activity/No Limits: Yes Acute Coronary Syndrome Inclusion Criteria At DC or during hospital stay patient has or had the following: ACS DIAGNOSIS No Discharge Core Measures Meds if any: Prescribed or Continued at Discharge Meds if any: NOT Prescribed or Continued at Discharge Congestive Heart Failure Inclusion Criteria At DC or during hospital stay patient has or had the following: CHF DIAGNOSIS No Discharge Core Measures Meds if any: Prescribed or Continued at Discharge Meds if any: NOT Prescribed or Continued at Discharge Cerebrovascular accident Inclusion Criteria At DC or during hospital stay patient has or had the following: CVA/TIA Diagnosis No Discharge Core Measures Meds if any: Prescribed or Continued at Discharge Meds if any: NOT Prescribed or Continued at Discharge Venous thromboembolism Inclusion Criteria VTE Diagnosis No VTE Type NONE VTE Confirmed by (Test) NONE Discharge Core Measures - Per Current guidelines, there needs to be overlap - treatment for the first 5 days of Warfarin therapy. - If discharged on Warfarin prior to 5 days of - overlap therapy, the patient will need to be - assessed for post discharge needs including - *Post discharge parental anticoagulation - *Warfarin and/or parental anticoagulation education - *Follow up date to check INR post discharge At least 5 days overlap therapy as Inpatient No Meds if any: Prescribed or Continued at Discharge Note: Overlap Therapy is Warfarin and Anticoagulant Meds if any: NOT Prescribed or Continued at Discharge
--- NOTE | 2016-09-06 08:13 | PN- Housestaff ---
GENARO CARNEY,PARDEPE 09/06/16 0813: Subjective Follow-up For: Acute exacerbation of COPD Influenza Subjective: Patient is seen and examined bedside. Today, she is endorsing complaints of increased urinary frequency, but denies any obvious dysuria or fever/chills. Patient does state that she feels much better compared to admission date where she wasn't even able to move. She is however still endorsing dyspnea on minimal exertion such as getting up and going to the bathroom. Patient spaces how wishes of not wanting to be discharged today and states that she feels she is not ready. No acute overnight event reported by nursing staff. Review of Systems Constitutional: Reports: see HPI. Objective Last 24 Hrs of Vital Signs/I&O Vital Signs Date Time Temp Pulse Resp B/P Pulse O2 O2 Flow FiO2 Ox Delivery Rate 09/06 0934 93 Room Air 09/06 0627 98.4 81 18 122/70 95 Nasal Cannula 09/06 0000 Nasal 1.0L Cannula 09/05 2220 98.1 79 18 142/64 93 Nasal Cannula 09/05 1905 94 Nasal 1.0L Cannula 09/05 1600 Nasal 1.0L Cannula 09/05 1424 98.0 80 18 140/80 91 09/05 1400 94 Nasal 2.0L Cannula 09/05 1220 156/78 Intake & Output 09/06 1600 09/06 0800 09/06 0000 Intake Total 500 240 Output Total Balance 500 240 Intake, Oral 500 240 Physical Exam General Appearance: Alert, Oriented X3, Cooperative Skin: No Significant Lesion HEENT: Atraumatic, EOMI, Mucous Membr. moist/pink Neck: Supple Lymphatic: Cervical nl Cardiovascular: Regular Rate, Normal S1, Normal S2 Lungs: Clear to Auscultation, Normal Air Movement Abdomen: Normal Bowel Sounds, Soft, No Tenderness Neurological: Normal Gait, Normal Speech Extremities: No Clubbing, No Cyanosis, No Edema, Normal Pulses, No Tenderness/ Swelling Assessment/Plan Assessment: This is a 81-year-old lady with a past medical history of COPD is presenting with symptoms suggestive of COPD exacerbation (increased cough, shortness of breath, sputum production). Patient is also found to be influenza positive which may seem to be more consistent with a constellation of symptoms that she is recently experiencing(malaise, fatigue, shortness of breath, decreased appetite). Patient labs were remarkable for mild leukocytosis, chest x-ray was unremarkable. Patient was then admitted to general medicine floor for evaluation and treatment of COPD exacerbation and influenza. Assessment and plan #COPD exacerbation Patient is reporting improvement in her dyspnea while at rest. However she is still short of breath on minimal ambulation. Plan We'll continue Zithromax 500 mg Will switch to Solu-Medrol IV to prednisone 40 mg in anticipation of a rapid taper during discharge TRC nebs O2 supplementation to keep sats above 90 #Influenza Patient rapid flu test was positive and in correlation with the clinical symptoms of malaise, fatigue, shortness of breath cough fever chills. Even though patient's symptoms started on Sunday she reports worsening of her symptoms actually started on Sunday. It is difficult to discern whether patient had COPD exacerbation before having influenza or if influenza started prior to a COPD exacerbation. We'll however treat for the influenza with an assumption of symptoms started on Sunday which is less than 72 hours. Plan Continue Tamiflu 30 mg(day4) Monitor for fevers #UTI Patient on admission did have a urine analysis that was suggestive of UTI, a culture did grow multiple organisms but was deemed contaminated as it was obtained through straight cath. At the point of admission patient did not have any symptoms of UTI such as dysuria or increased urinary frequency and therefore treatment was not necessitated. However, with new complaints of increased frequency today and a new urinalysis that is also suggestive for UTI, will therefore address and treat the infection. Plan Cipro 500 mg by mouth twice a day for 3 days Will await urine cultures #Acute hypoxic respiratory failure Patient is deciding below 88% on minimal ambulation to the bathroom. Of note, patient was not requiring oxygen at home. It is very likely the patient will require home oxygen, we will defer that decision for tomorrow when we obtain stats on ambulation. #History of hypertension Continue amlodipine #History of hyperlipidemia Continue atorvastatin 10 mg #History of hypothyroidism Continue levothyroxine #History of rheumatoid arthritis Prednisone Current dose for COPD is adequate for Problem List: 1. Acute exacerbation of chronic obstructive airways disease 2. Influenza Pain Ratin Pain Location: none Pain Goal: Remain pain free Pain Plan: Prednisone and pain pathway Tomorrow's Labs & Rationales: CBC-trending possible UTI DAMON CARNEY,MIKE 09/06/16 1322: Attending MD Review Statement Attending Statement Attending MD Statement: examined this patient, discuss w/resident/PA/LOGISTICS PROGRAM MANAGER, agreed w/resident/PA/LOGISTICS PROGRAM MANAGER, discussed with family, reviewed EMR data (avail) Attending Assessment/Plan: Patient continues to have coughing with scant amount of sputum production. She also complains of being tired but was able to ambulate to bathroom. As a last evening she started to have frequent urinations and burning. She denies any flank pain or suprapubic pain. She did desaturate while going to bathroom. Her by mouth intake is still relatively low. She denies any recent fever or chills. Chest exam shows the lateral basal crepitations. Abdomen soft nontender. Assessment and plan Continue Tamiflu to complete a course for positive influenza Recheck a UA, given the patient has a ureteral stent wish keep a low threshold for starting antibiotics for possible UTI. Note that in May last year patient had grown enterococcus and before that she had grown Klebsiella. If UA shows signs of UTI I would empirically start patient on Augmentin 875 mg twice a day.
[2016-09-06 08:16] LABS: ABSOLUTE BASOPHIL COUNT 0 /CUMM (0.0-0.2); ABSOLUTE EOSINOPHIL COUNT 0 /CUMM (0.0-0.7); ABSOLUTE LYMPH COUNT 0.8 /CUMM (1.2-3.4); ABSOLUTE MONOCYTE COUNT 0.7 /CUMM (0.10-0.60); BASOPHIL % 0 % (0.0-2.0); EOSINOPHIL % 0 % (0-5); MEAN CORPUSCULAR HGB 30.3 PG (27.0-31.0); MEAN CORPUSCULAR HGB CONC 32.9 G/DL (33.0-37.0); MEAN CORPUSCULAR VOLUME 92.3 FL (81.0-99.0); MEAN PLATELET VOLUME 7.8 FL (7.4-10.4); RBC DISTRIBUTION WIDTH 13.6 % (11.5-14.5); WHITE BLOOD CELL COUNT 12.5 /CUMM (4.8-10.8)
[2016-09-06 08:53] LABS: PLATELET COUNT 242 /CUMM (130-400)
[2016-09-06 14:03] VITALS: BP 120/70
[2016-09-06 23:01] VITALS: BP 134/74
[2016-09-07 06:40] VITALS: BP 134/74
[2016-09-07 08:00] LABS: ABSOLUTE BASOPHIL COUNT 0 /CUMM (0.0-0.2); ABSOLUTE EOSINOPHIL COUNT 0 /CUMM (0.0-0.7); ABSOLUTE GRANULOCYTE CT 6.9 /CUMM (1.4-6.5); ABSOLUTE MONOCYTE COUNT 0.6 /CUMM (0.10-0.60); BASOPHIL % 0.3 % (0.0-2.0); EOSINOPHIL % 0.1 % (0-5); GRANULOCYTE % 80.5 % (42.2-75.2); HEMATOCRIT 39.2 % (37-47); MEAN CORPUSCULAR HGB 29.9 PG (27.0-31.0); MEAN CORPUSCULAR HGB CONC 32.5 G/DL (33.0-37.0); PLATELET COUNT 251 /CUMM (130-400); RBC DISTRIBUTION WIDTH 13.4 % (11.5-14.5); RED BLOOD CELL CT 4.26 /CUMM (4.20-5.40); WHITE BLOOD CELL COUNT 8.6 /CUMM (4.8-10.8)
[2016-09-07] MEDS ORDERED: AUGMENTIN 875-1 EACH PO (08:04)
--- NOTE | 2016-09-07 09:38 | PN- Att Addend ---
Attending Addendum Attending Brief Note Attending MD Statement: examined this patient, discuss w/resident/PA/TENNIS BALL COVERER HAND, agreed w/resident/PA/TENNIS BALL COVERER HAND, discussed with family, reviewed EMR data (avail) Attending Assessment/Plan: Patient continues to have coughing with scant amount of sputum production. She also complains of being tired but was able to ambulate to bathroom. Her urinary symptoms have improved after starting Augmentin. She denies any flank pain or suprapubic pain. She did desaturate while going to bathroom. Her by mouth intake has improved which was relatively low yesterday. She denies any recent fever or chills. Chest exam shows the lateral basal crepitations. Abdomen soft nontender. Vital Signs Date Time Temp Pulse Resp B/P Pulse O2 O2 Flow FiO2 Ox Delivery Rate 09/07 0816 95 Nasal 1.0L Cannula 09/07 0640 98.3 73 20 134/74 95 Nasal Cannula 09/07 0000 Nasal 1.0L Cannula 09/06 2301 98.3 92 20 134/74 95 Nasal Cannula 09/06 2022 96 Nasal 1.0L Cannula 09/06 1403 98.2 68 19 120/70 92 Intake & Output 09/07 1600 09/07 0800 09/07 0000 Intake Total 360 360 Output Total Balance 360 360 Intake, Oral 360 360 Laboratory Tests 09/07 09/06 0650 0953 Chemistry Sodium (137 - 145 mmol/L) 144 Potassium (3.5 - 5.1 mmol/L) 3.6 Chloride (98 - 107 mmol/L) 104 Carbon Dioxide (22 - 30 mmol/L) 32 H Anion Gap (5 - 16) 9 BUN (7 - 17 mg/dL) 21 H Creatinine (0.5 - 1.0 mg/dL) 0.6 Estimated GFR (>60 ml/min) > 60 BUN/Creatinine Ratio (7 - 25 %) 35.0 H Hematology CBC w Diff NO MAN DIFF REQ WBC (4.8 - 10.8 /CUMM) 8.6 RBC (4.20 - 5.40 /CUMM) 4.26 Hgb (12.0 - 16.0 G/DL) 12.7 Hct (37 - 47 %) 39.2 MCV (81.0 - 99.0 FL) 92.0 MCH (27.0 - 31.0 PG) 29.9 RDW (11.5 - 14.5 %) 13.4 Plt Count (130 - 400 /CUMM) 251 MPV (7.4 - 10.4 FL) 8.0 Gran % (42.2 - 75.2 %) 80.5 H Lymphocytes % (20.5 - 51.1 %) 12.0 L Monocytes % (1.7 - 9.3 %) 7.1 Eosinophils % (0 - 5 %) 0.1 Basophils % (0.0 - 2.0 %) 0.3 Absolute Granulocytes (1.4 - 6.5 /CUMM) 6.9 H Absolute Lymphocytes (1.2 - 3.4 /CUMM) 1.0 L Absolute Monocytes (0.10 - 0.60 /CUMM) 0.6 Absolute Eosinophils (0.0 - 0.7 /CUMM) 0 Absolute Basophils (0.0 - 0.2 /CUMM) 0 PUBS MCHC (33.0 - 37.0 G/DL) 32.5 L Urines Urine Color (YEL,AMB,STR) YEL Urine Clarity (CLEAR) HAZY H Urine pH (5.0 - 8.0) 7.0 Ur Specific [place] (1.001 - 1.035) 1.015 Urine Protein (NEG,<30 MG/DL) 30 H Urine Ketones (NEG) NEG Urine Nitrite (NEG) NEG Urine Bilirubin (NEG) NEG Urine Urobilinogen (0.1 - 1.0 EU/dl) 0.2 Ur Leukocyte Esterase (NEG) LARGE H Ur Microscopic SEDIMENT EXAMINED Urine RBC (0 - 5 /HPF) 3-5 Urine WBC (0 - 2 /HPF) 15-25 H Ur Epithelial Cells (NONE,FEW) FEW Urine Hemoglobin (NEG) MOD H Urine Glucose (N MG/DL) NEG Microbiology Date/Time Procedure - Status Source Growth 09/06 0953 Urine Culture - RECD URINE ROUT Assessment and plan Continue Tamiflu to complete a course for positive influenza with last dose this evening Continue Augmentin for UTI for at least 7 days Follow-up urine culture Note that in May last year patient had grown enterococcus and before that she had grown Klebsiella. Ambulate and check laboratory saturation on room air Patient may be able to go home today if she can ambulate without oxygen
--- NOTE | 2016-09-07 09:49 | PN- Housestaff ---
Subjective Follow-up For: Acute exacerbation of COPD Influenza UTI Subjective: Patient is seen and examined bedside. She reports significant improvement in her breathing and inquires about possible discharge today. Regarding increased urinary frequency she also reports improvement. She denies any fever, chills, nausea, vomiting, chest pain, palpitation, abdominal pain, increased shortness of breath or dysuria. No acute overnight event reported by nursing staff. Review of Systems Constitutional: Reports: no symptoms. Objective Last 24 Hrs of Vital Signs/I&O Vital Signs Date Time Temp Pulse Resp B/P Pulse O2 O2 Flow FiO2 Ox Delivery Rate 09/07 1600 Nasal 1.0L Cannula 09/07 1446 98.4 92 20 136/68 94 09/07 1102 98.3 79 20 140/68 09/07 0816 95 Nasal 1.0L Cannula 09/07 0800 Nasal 1.0L Cannula 09/07 0640 98.3 73 20 134/74 95 Nasal Cannula 09/07 0000 Nasal 1.0L Cannula 09/06 2301 98.3 92 20 134/74 95 Nasal Cannula Intake & Output 09/07 1600 09/07 0800 09/07 0000 Intake Total 600 360 360 Output Total Balance 600 360 360 Intake, Oral 600 360 360 Physical Exam General Appearance: Alert, Cooperative Skin: No Significant Lesion Cardiovascular: Regular Rate, Normal S1, Normal S2, No Murmurs Lungs: Clear to Auscultation, Normal Air Movement Neurological: Normal Gait, Normal Speech, Normal Tone, Sensation Intact Extremities: No Clubbing, No Edema, Normal Pulses Assessment/Plan Assessment: This is a 81-year-old lady with a past medical history of COPD is presenting with symptoms suggestive of COPD exacerbation (increased cough, shortness of breath, sputum production). Patient is also found to be influenza positive which may seem to be more consistent with a constellation of symptoms that she is recently experiencing(malaise, fatigue, shortness of breath, decreased appetite). Patient labs were remarkable for mild leukocytosis, chest x-ray was unremarkable. Patient was then admitted to general medicine floor for evaluation and treatment of COPD exacerbation and influenza. Assessment and plan #COPD exacerbation Patient is reporting significant improvement in her dyspnea while at rest. Her ambulation sats have improved but still sats at 88% on moderate ambulation. Plan Will discharge with prednisone taper Will discharge with home 02 1L #Influenza Patient rapid flu test was positive and in correlation with the clinical symptoms of malaise, fatigue, shortness of breath cough fever chills. Even though patient's symptoms started on Sunday she reports worsening of her symptoms actually started on Sunday. It is difficult to discern whether patient had COPD exacerbation before having influenza or if influenza started prior to a COPD exacerbation. We'll however treat for the influenza with an assumption of symptoms started on Sunday which is less than 72 hours. Plan Continue Tamiflu one more day Monitor for fevers #UTI Patient on admission did have a urine analysis that was suggestive of UTI, a culture did grow multiple organisms but was deemed contaminated as it was obtained through straight cath. At the point of admission patient did not have any symptoms of UTI such as dysuria or increased urinary frequency and therefore treatment was not necessitated. However, with new complaints of increased frequency today and a new urinalysis that is also suggestive for UTI, will therefore address and treat the infection. Plan disharge with Augmentin 875 to complete 7 day course #Acute hypoxic respiratory failure Patient is desating below 88% on moderate ambulatio. Of note, patient was not requiring oxygen at home. Will discharge patient with home 02 1L #History of hypertension Continue amlodipine #History of hyperlipidemia Continue atorvastatin 10 mg #History of hypothyroidism Continue levothyroxine #History of rheumatoid arthritis Prednisone Current dose for COPD is adequate for Problem List: 1. UTI (urinary tract infection) 2. Influenza 3. Acute exacerbation of chronic obstructive airways disease Pain Ratin Pain Location: none Pain Goal: Remain pain free Pain Plan: per pain pathway Tomorrow's Labs & Rationales: none-discharge none-discharge
--- NOTE | 2016-09-07 11:33 | NUR ---
SATURATIONS 95% ON 1L AT REST. AMBULATED THROUGH GEIGER AND SATURATION MAINTAINED BETWEEN 94-97%. ON RA, SATURATION 91% AT REST. DESATURATED TO 88% WHEN AMBULATING THROUGH GEIGER. PLACED BACK ON 1L.
[2016-09-07] MEDS ORDERED: PREDNISONE10 M2 PO (13:41)
[2016-09-07 14:46] VITALS: BP 136/68
--- NOTE | 2016-09-19 06:35 | Discharge Summary ---
Visit Information Visit Dates Admission Date: 09/03/16 Discharge Date: 09/07/16 Hospital Course Course Attending Physician: DAMON CARNEY,MIKE Primary Care Physician: ERON COWAN MD Hospital Course: This is an 81 yo lady with a PMH of HTN, HLD, COPD, rheumatoid arthritis on chronic Predinsone admitted with dyspnea, productive cough, generalized weakness and malaise, and myalgia and a 1 day history of diarrhea. A Rapid flu test done at the ED was positive. Vital signs were unremarkable. Physical examination exhibited mild bilateral wheezing, rest of physical exam was unremarkable. She had leukocytosis with white blood count of 14.5. Patient was admitted to general medicine floor and was discharged on the fifth day. The following issues were addressed during patient's hospitalization: #Influenza Patient received renally adjusted Tamiflu dose of 30 mg daily for 5 days. Patient's fever profile improved throughout hospitalization and was afebrile during discharge date. #AECOPD Patient received Solu-Medrol IV and transitioned to prednisone oral rapid taper starting with 40 mg daily with improvement in her shortness of breath and cough. Patient was however still having difficulties ambulating without shortness of breath and was therefore on 1-2L of O2 supplementation. #UTI During hospitalization started endorsing some mild dysuria. UA obtain was suggestive a UTI therefore treatment with Augmentin was started. Patient was discharged Augmentin prescription to complete a total antibiotic course of 7 days. Allergies: Coded Allergies: hydromorphone (From DILAUDID) (Severe, SYNCOPE 04/21/16) morphine (Severe, SYNCOPE 04/21/16) oxycodone (Severe, UNKNOWN 09/19/15) tramadol (Severe, SYNCOPE 04/21/16) Sulfa (Sulfonamide Antibiotics) (Intermediate, HIVES 09/19/15) latex (Intermediate, BAD RASH 06/15/16) shrimp (HIVES, RASH 09/19/15) Disposition Summary Disposition Principal Diagnosis: AECOPD Additional Diagnosis: INFLUENZA Discharge Disposition: home or self care Discharge Instructions General Discharge Information Code Status: Do Not Resucitate Patient's Diet: Regular Patient's Activity: As tolerated Follow-Up Instructions/Appts: Patient is to follow-up with PCP within one week Patient is to complete full antibiotic course Medications at Discharge Discharge Medications: Continue taking these medications: Levothyroxine Sodium (Levothyroxine Sodium) 50 MCG TABLET 1 Tablet ORAL DAILY BEFORE BREAKFAST Comments: Last Taken: 09/07/16 Time: 6 AM Lovastatin (Lovastatin) 40 MG TABLET 1 Tablet ORAL DAILY Instructions: with food Comments: Last Taken: 09/07/16 Time: 5 PM SUBSTITUTION GIVEN WHILE IN HOSPITAL Amlodipine Besylate (Norvasc) 5 MG TABLET 1 Tablet ORAL DAILY Comments: Last Taken: 09/07/16 Time: 11 AM Albuterol Sulfate (Proair Hfa) 8.5 GM HFA.AER.AD 2 Puff Inhale through mouth EVERY 4-6 HOURS NEEDED as needed for COPD Instructions: Reason to Stop at ADM: [facility] ORDERS Comments: Last Taken:NOT GIVEN IN HOSPITAL ( NEBULIZER GIVEN WHILE IN HOSPITAL ) Time: Aspirin (Children's Aspirin) 81 MG TAB.CHEW 1 Tablet ORAL DAILY Comments: Last Taken: 09/07/16 Time: 11 AM Fluticasone/Salmeterol (Advair 250-50 Diskus) 1 EACH BLST.W.DEV 1 Puff Inhale through mouth TWICE DAILY Instructions: Reason to Stop at ADM: [facility] ORDERS Comments: Last Taken: 09/07/16 Time: 11AM SYMBICORT GIVEN SUBSTITUTION WHILE IN HOSPITAL Prednisone (Prednisone) 5 MG TABLET 1 Tablet ORAL DAILY Instructions: Restart after completing the current taper Comments: 30MG DOSE GIVEN 09/07/16 Acetaminophen (Tylenol Arthritis) 650 MG TABLET.ER 1 Tablet ORAL TWICE DAILY Comments: Last Taken: 09/07/16 Time: 10AM Tamsulosin HCl (Flomax) 0.4 MG CAP.ER.24H 1 Capsule ORAL DAILY Qty = 30 Comments: NOT GIVEN IN HOSPITAL Ipratropium/Albuterol Sulfate (Iprat-Albut 0.5-3(2.5) MG/3 Ml) 0.5 MG-3 MG (2.5 MG BASE)/3 ML AMPUL.NEB 1 ORAL as needed for SHORTNESS OF BREATH Start taking the following new medications: Prednisone (Prednisone) 10 MG TABLET 1 Tablet ORAL TAPER Qty = 9 No Refills Instructions: On Take 09/08 30 MG 09/09-09/10 20 MG 09/11-09/12 10 MG Then Stop Oseltamivir Phosphate (Tamiflu) 30 MG CAPSULE 1 Tablet ORAL TODAY Qty = 1 No Refills Instructions: TAKE ONE TABLET THIS EVENING (LAST DOSE OF 5 DAY TREATMENT) Comments: Last Taken: 09/07/16 Time: 11AM Amoxicillin/Potassium Clav (Augmentin 875-125 Tablet) 875 MG-125 MG TABLET 1 Tablet ORAL TWICE DAILY Qty = 12 No Refills Comments: Last Taken: 09/07/16 Time: 11AM Copies To: CHAPO CARNEY,ERON Miranda Attending MD Review Statement Documenting Attending: LAI CARNEY,FRIEDA Rubio Other Findings: Agree with the above discharge plan.
== END 2016-09-07 17:20 | DRG 193 ==
LOC: ENRESERVDT → ENRESERVTM → ERH 10:04 → ERHI 14:59 → 2NA 14:59 → ENPENDDIS 14:59 → 2NA 14:59
PROVIDERS: Physician Assistant Medical; Student in an Organized Health Care Education/Training Program; ADMIT Internal Medicine
DX: J09.X2 Influenza due to identified novel influenza A virus with other respiratory manifestations (principal); J96.01 Acute respiratory failure with hypoxia; J44.1 Chronic obstructive pulmonary disease with (acute) exacerbation; N39.0 Urinary tract infection, site not specified; M06.9 Rheumatoid arthritis, unspecified; E03.9 Hypothyroidism, unspecified; I10 Essential (primary) hypertension; E78.5 Hyperlipidemia, unspecified; M81.0 Age-related osteoporosis without current pathological fracture
CPT/HCPCS: 2NAP; 74176; 81001; 82436; 87040; 87086; 87804; 87804-59; 93005; 93010; 96374; 96375; J0131; J0456; J1650; J2405; J2920; J2930; J3490; J7060; J7512

== ENCOUNTER 2017-02-02 10:50 | Inpatient (IN) | payer OTHER, MEDICARE ==
[~2017-02-02] VITALS: Ht 154.9 cm; Wt 62.8 kg
[~2017-02-02 10:50] MED LIST changes: +IPRAT-ALBUT 0.5-3 ML PO; +PREDNISONE10 M2 PO; +TAMIFLU30 M1 PO
--- NOTE | 2017-02-02 10:56 | ED GENERAL ADULT ---
History of Present Illness General Chief Complaint: Fall Stated Complaint: FALL Allergies Coded Allergies: hydromorphone (From DILAUDID) (Severe, SYNCOPE 04/21/16) morphine (Severe, SYNCOPE 04/21/16) oxycodone (Severe, UNKNOWN 09/19/15) tramadol (Severe, SYNCOPE 04/21/16) Sulfa (Sulfonamide Antibiotics) (Intermediate, HIVES 09/19/15) latex (Intermediate, BAD RASH 06/15/16) shrimp (HIVES, RASH 09/19/15) Reconcile Medications Acetaminophen (Tylenol Arthritis) 650 MG TABLET.ER 1 TAB PO BID PAIN ( Reported) Albuterol Sulfate (Proair Hfa) 8.5 GM HFA.AER.AD 2 PUF INH Q4-6 PRN PRN COPD (Reported) Reason to Stop at ADM: [facility]BS ORDERS Amlodipine Besylate (Norvasc) 5 MG TABLET 1 TAB PO DAILY HYPERTENSION ( Reported) Amoxicillin/Potassium Clav (Augmentin 875-125 Tablet) 875 MG-125 MG TABLET 1 TAB PO BID UTI Aspirin (Children's Aspirin) 81 MG TAB.CHEW 1 TAB PO DAILY HEART (Reported) Fluticasone/Salmeterol (Advair 250-50 Diskus) 1 EACH BLST.W.DEV 1 PUF INH BID COPD (Reported) Reason to Stop at ADM: [facility] ORDERS Ipratropium/Albuterol Sulfate (Iprat-Albut 0.5-3(2.5) MG/3 Ml) 0.5 MG-3 MG (2.5 MG BASE)/3 ML AMPUL.NEB 1 PO PRN SHORTNESS OF BREATH (Reported) Levothyroxine Sodium 50 MCG TABLET 1 TAB PO DAILY AC THYROID (Reported) Lovastatin 40 MG TABLET 1 TAB PO DAILY HYPERCHOLESTEROL (Reported) with food Oseltamivir Phosphate (Tamiflu) 30 MG CAPSULE 1 TAB PO TODAY INFLUENZA TAKE ONE TABLET THIS EVENING (LAST DOSE OF 5 DAY TREATMENT) Prednisone 5 MG TABLET 1 TAB PO DAILY COPD/RA (Reported) Restart after completing the current taper Prednisone 10 MG TABLET 1 TAB PO TAPER COPD On Take 09/08 30 MG 09/09-09/10 20 MG 09/11-09/12 10 MG Then Stop Tamsulosin HCl (Flomax) 0.4 MG CAP.ER.24H 1 CAP PO DAILY BLADDER Past History Medical History Neurological: 1SCIATICA EENT: cataracts, [place] Cardiovascular: hypertension, hyperlipidemia Respiratory: COPD, pneumonia, pulmonary nodules which have been stable on CT scanning Gastrointestinal: diverticulitis Hepatic: GALL BLADDER REMOVAL Renal: R KIDNEY STONES Musculoskeletal: osteoarthritis, rheumatoid arthritis, sciatica Psychiatric: NONE Endocrine: hypothyroidism, osteoporosis Blood Disorders: NONE Cancer(s): NONE 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 FATHER (heart failure from severe asthma). . Departure Departure Condition: Stable Referrals: CHAPO CARNEY,ERON Miranda (PCP/Family) Departure Forms: Customer Survey General Discharge Information
--- NOTE | 2017-02-02 11:01 | ED MVC/FALL/TRAUMA COMPLAINT ---
History of Present Illness General Chief Complaint: Fall Stated Complaint: FALL Allergies Coded Allergies: hydromorphone (From DILAUDID) (Severe, SYNCOPE 04/21/16) morphine (Severe, SYNCOPE 04/21/16) oxycodone (Severe, UNKNOWN 09/19/15) tramadol (Severe, SYNCOPE 04/21/16) Sulfa (Sulfonamide Antibiotics) (Intermediate, HIVES 09/19/15) latex (Intermediate, BAD RASH 06/15/16) shrimp (HIVES, RASH 09/19/15) Reconcile Medications Acetaminophen (Tylenol Arthritis) 650 MG TABLET.ER 1 TAB PO BID PAIN ( Reported) Albuterol Sulfate (Proair Hfa) 8.5 GM HFA.AER.AD 2 PUF INH Q4-6 PRN PRN COPD (Reported) Reason to Stop at ADM: [facility] NEBS ORDERS Amlodipine Besylate (Norvasc) 5 MG TABLET 1 TAB PO DAILY HYPERTENSION ( Reported) Amoxicillin/Potassium Clav (Augmentin 875-125 Tablet) 875 MG-125 MG TABLET 1 TAB PO BID UTI Aspirin (Children's Aspirin) 81 MG TAB.CHEW 1 TAB PO DAILY HEART (Reported) Fluticasone/Salmeterol (Advair 250-50 Diskus) 1 EACH BLST.W.DEV 1 PUF INH BID COPD (Reported) Reason to Stop at ADM: [facility] Ipratropium/Albuterol Sulfate (Iprat-Albut 0.5-3(2.5) MG/3 Ml) 0.5 MG-3 MG (2.5 MG BASE)/3 ML AMPUL.NEB 1 PO PRN SHORTNESS OF BREATH (Reported) Levothyroxine Sodium 50 MCG TABLET 1 TAB PO DAILY AC THYROID (Reported) Lovastatin 40 MG TABLET 1 TAB PO DAILY HYPERCHOLESTEROL (Reported) with food Oseltamivir Phosphate (Tamiflu) 30 MG CAPSULE 1 TAB PO TODAY INFLUENZA TAKE ONE TABLET THIS EVENING (LAST DOSE OF 5 DAY TREATMENT) Prednisone 5 MG TABLET 1 TAB PO DAILY COPD/RA (Reported) Restart after completing the current taper Prednisone 10 MG TABLET 1 TAB PO TAPER COPD On Take 09/08 30 MG 09/09-09/10 20 MG 09/11-09/12 10 MG Then Stop Tamsulosin HCl (Flomax) 0.4 MG CAP.ER.24H 1 CAP PO DAILY BLADDER Past History Medical History Neurological: 1SCIATICA EENT: cataracts, [place] Cardiovascular: hypertension, hyperlipidemia Respiratory: COPD, pneumonia, pulmonary nodules which have been stable on CT scanning Gastrointestinal: diverticulitis Hepatic: GALL BLADDER REMOVAL Renal: R KIDNEY STONES Musculoskeletal: osteoarthritis, rheumatoid arthritis, sciatica Psychiatric: NONE Endocrine: hypothyroidism, osteoporosis Blood Disorders: NONE Cancer(s): NONE [employer]/Reproductive: miscarriage History of MRSA: No History of VRE: No History of CDIFF: No Influenza Vaccine: 04/10/16 Surgical History Surgical History: cholecystectomy, hysterectomy, spinal fusion, RAYA KNEE PARTIAL HYSTERECTOMY L FOOT RECONSTRUCTIVE SX CERVICAL FUSION FEMUR FX/SX/CHINO BILATERAL OOPHORECTOMY (BILATERAL) Psychosocial History Who do you live with Patient/Self Services at Home None What is your primary language Macedonian Family History Family History, If Any: SISTER (thyroid cancer). FATHER (heart failure from severe asthma). . Departure Departure Condition: Stable Referrals: CHAPO CARNEY,ERON Miranda (PCP/Family) Departure Forms: Customer Survey General Discharge Information
--- NOTE | 2017-02-02 11:01 | ED SYNCOPE COMPLAINT ---
History of Present Illness General Chief Complaint: Fall Stated Complaint: FALL Source: patient Exam Limitations: no limitations Vital Signs & Intake/Output Vital Signs & Intake/Output Vital Signs Date Time Temp Pulse Resp B/P B/P Pulse O2 O2 Flow FiO2 Mean Ox Delivery Rate 02/05 0608 98.5 84 18 130/60 90 Room Air 02/04 2200 99.0 87 18 134/72 94 Room Air 02/04 1433 99.1 81 20 120/70 91 02/04 0850 88 148/78 02/04 0810 92 Room Air ED Intake and Output 02/05 0000 02/04 1200 Intake Total 1200 600 Output Total 1350 950 Balance -150 -350 Intake, IV 150 200 Intake, Oral 1050 400 Output, Urine 1350 950 Patient 135 lb Weight Weight Chair scale Measurement Method Allergies Coded Allergies: hydromorphone (From DILAUDID) (Severe, SYNCOPE 04/21/16) morphine (Severe, SYNCOPE 04/21/16) oxycodone (Severe, UNKNOWN 09/19/15) tramadol (Severe, SYNCOPE 04/21/16) Sulfa (Sulfonamide Antibiotics) (Intermediate, HIVES 09/19/15) latex (Intermediate, BAD RASH 06/15/16) shrimp (HIVES, RASH 09/19/15) Reconcile Medications Acetaminophen (Tylenol Arthritis) 650 MG TABLET.ER 1 TAB PO BID PAIN ( Reported) Albuterol Sulfate (Proair Hfa) 8.5 GM HFA.AER.AD 2 PUF INH Q4-6 PRN PRN COPD (Reported) Reason to Stop at ADM: [facility] NEBS ORDERS Amlodipine Besylate (Norvasc) 5 MG TABLET 1 TAB PO DAILY HYPERTENSION ( Reported) Aspirin (Children's Aspirin) 81 MG TAB.CHEW 1 TAB PO DAILY HEART (Reported) Fluticasone/Salmeterol (Advair 250-50 Diskus) 1 EACH BLST.W.DEV 1 PUF INH BID COPD (Reported) Reason to Stop at ADM: [facility] NEBS ORDERS Ipratropium/Albuterol Sulfate (Iprat-Albut 0.5-3(2.5) MG/3 Ml) 0.5 MG-3 MG (2.5 MG BASE)/3 ML AMPUL.NEB 1 PO PRN SHORTNESS OF BREATH (Reported) Levothyroxine Sodium 50 MCG TABLET 1 TAB PO DAILY AC THYROID (Reported) Lovastatin 40 MG TABLET 1 TAB PO DAILY HYPERCHOLESTEROL (Reported) with food Prednisone 5 MG TABLET 1 TAB PO DAILY COPD/RA (Reported) Restart after completing the current taper Tamsulosin HCl (Flomax) 0.4 MG CAP.ER.24H 1 CAP PO DAILY BLADDER Triage Nurses Notes Reviewed? yes Timing: single episode today Loss of Consciousness: prolonged (minutes) HPI: Patient is an 81-year-old female with past medical history of hypothyroidism, COPD not on home O2, hypertension, rheumatoid arthritis on maintenance prednisone and hyperlipidemia who presents emergency room stating that she was in her normal state of health today and while standing and lied outside of the DMV patient had a syncopal episode in which she does not recall the events that led her to be in a standing position and then she was on the ground. Witnesses and EMS state the patient was unconscious for approximate 1-2 minutes where she suffered lacerations and trauma to her head and face. Patient currently denies any headache blurred vision neck pain back pain chest pain shortness of breath abdominal pain. (MELI ZENDEJAS) Past History Medical History Any Pertinent Medical History? 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 FATHER (heart failure from severe asthma). . Hx Contributory? No (MELI ZENDEJAS) Review of Systems Review of Systems Constitutional: Reports: no symptoms. EENTM: Reports: see HPI. Respiratory: Reports: no symptoms. Cardiovascular: Reports: no symptoms. GI: Reports: no symptoms. Genitourinary: Reports: no symptoms. Musculoskeletal: Reports: no symptoms. Skin: Reports: see HPI. Neurological/Psychological: Reports: no symptoms. All Other Systems: Reviewed and Negative (MELI ZENDEJAS) Physical Exam Physical Exam General Appearance: no apparent distress, alert Head: evidence of injury, lacerations, tenderness Cranial Nerves: normal hearing, normal speech, PERRL Comments: Well-developed well-nourished person in no acute distress HEENT: , extraocular motion intact, no nystagmus. Pupils equally round and reactive to light and accommodation. External auditory canal and Tympanic membranes clear. Pharynx normal. No swelling or edema. Neck: Supple, no lymphadenopathy, normal range of motion without pain or tenderness No central spinous tenderness Back: Nontender, no CVA tenderness. No central spinous tenderness Cardiovascular: Regular rate and rhythms no murmurs rubs or gallops, normal JVP Respiratory: Chest nontender. No respiratory distress.breath sounds clear to auscultation bilaterally Abdomen: Soft, nontender nondistended, no appreciable organomegaly. Normal bowel sounds. No ascites Extremity: No edema, no calf tenderness to palpation, normal and equal pulses. Neuro: Alert oriented x3, motor sensory normal, cranial nerves II through XII grossly intact. Skin: No appreciable rash on exposed skin, skin is warm and dry. Psych: Mood and affect is normal, memory and judgment is normal. HEAD- X 2 BILATERAL FRONTAL SINUS REGION OF A sagittal linear 3 cm subcutaneous laceration with no active bleeding Noted point tenderness to FOREHEad and maxillary bilateral sinus region. Nose-noted dry blood to bilateral nares denies point tenderness noted Mouth- noted 2 cm inner lip gaping laceration Noted external LIP superficial 5 mm irregular laceration crossing the vermilion border Teeth intact no fracture Core Measures ACS in differential dx? No CVA/TIA Diagnosis: No Severe Sepsis Present: No Septic Shock Present: No (MELI ZENDEJAS) Progress Differential Diagnosis: AMI, aortic dissection, aortic valve, drug induced syncope, hyperventilation, orthostatic syncope, other valvular disease, pacemaker malfunction, pericardial tamponade, pulmonary embolus, seizure, sick sinus syndrome, subarachnoid hem., TIA/CVA, vasodepressor syncope, ventricular tach/fib, FX, ICH Plan of Care: Orders Procedure Date/time Status MISSING MEDICATION FORM 02/04 0890 Active PT Evaluate & Treat 02/04 UNK Active Current Medications Sig/Maya Start time Last Medication Dose Stop Time Status Admin Atorvastatin Calcium 40 MG 1700 02/03 1700 AC 02/04 (Lipitor) 1807 Albuterol Sulfate 3 ML DAILY 02/03 1000 AC 02/04 (Proventil) 0805 Ipratropium [place] 2.5 ML DAILY 02/03 1000 AC 02/04 (Atrovent) 0809 Prednisone 5 MG DAILY 02/03 1000 AC 02/04 0851 Levothyroxine Sodium 0.05 MG DAILY AC 02/03 0700 AC 02/05 (Synthroid) 0538 Amlodipine Besylate 5 MG DAILY 02/02 2330 AC 02/04 (Norvasc) 0850 Albuterol Sulfate 3 ML Q4P PRN 02/02 2015 AC (Proventil) Ipratropium [place] 2.5 ML Q4 HRS NEEDED PRN 02/02 2015 AC (Atrovent) Ampicillin Sodium/ 1,500 MG Q6 02/02 1800 AC 02/05 Sulbactam Sodium 0538 (Unasyn) Sodium Chloride 100 ML (Normal Saline 0.9%) Acetaminophen 325 MG Q6P PRN 02/02 1400 AC 02/04 (Tylenol) 1808 Patient on initial examination was in no apparent distress and was offered pain medications on multiple occasions however declined. Tetanus is updated. stock shipper placed. Patient does have concerns of bilateral maxillary sinus fractures and nasal fracture. IV was established patient FOR IV antibiotics. Patient has consideration for admission due to syncope and which in the emergency room patient has no acute abnormal blood work or EKG however upon ambulation patient felt significantly unsteady and a weight-bearing position and could not ambulate due to patient feeling uncomfortable walking. Discussed patient with ENT Dr. Paul in which she advised that patient can be appropriately managed at [facility] IV antibiotics were administered To the multiple lacerations sites the wounds were irrigated with sterile water and using sterile technique Betadine was applied been using 10 mL in total of 1% lidocaine local anesthesia was successful In total 1 L of sterile water was used for irrigation of the wounds To the inner lip- 2 cm gaping wound was noted I grossly approximated the margins with #3, 5-0 MONOFILAMENT absorbable sutures in which patient tolerated well To the external lip a 5 mm laceration was noted in which I repaired and align the vermilion border with #1 5-0 monofilament observable suture The bilateral frontal lacerations 2 were repaired with #7, 5-0 and #7, 5-0 no nonabsorbable sutures and in total 14 sutures were applied to the forehead. Margins were revised. Bacitracin was applied 7 RIGHT 7 LEFT 3 OUTSIDE LIP/ 1 INSIDE LIP (SOL BECK,MELI) Diagnostic Imaging: Viewed by Me: CT Scan. Radiology Impression: acute abnormality, fracture Initial ED EKG: normal intervals, normal p-waves Comments: PATIENT: COURTNEY GEIGER PRESENT AGE: 81 PATIENT ACCOUNT NO: [id number] : 35 LOCATION: [facility] ORDERING PHYSICIAN: MELI BECK SERVICE DATE: 02/02/17 EXAM TYPE: CAT - CT CERV SPINE WO IV CONTRAST; CT HEAD WO IV CONTRAST; CT MAXILLOFACIAL W/O CON EXAMINATION: NONCONTRAST HEAD CT NONCONTRAST MAXILLOFACIAL CT NONCONTRAST CERVICAL SPINE CT INDICATION INFORMATION: Fall with head strike. COMPARISON: 04/21/2016 TECHNIQUE: Separate noncontrast CT examinations of the head, maxillofacial bones, and cervical spine were performed. Coronal and sagittal images were created for each examination at the technologist workstation. FINDINGS: Head: No evidence of acute intracranial hemorrhage. No extra-axial fluid collections are seen. Lundy-white differentiation is maintained without evidence of acute territorial infarction. No hydrocephalus. Proportional prominence of the ventricles and sulcal spaces is consistent with mild volume loss. Patchy and confluent periventricular and deep white matter hypoattenuation is consistent with moderate small vessel ischemic change. No mass effect or midline shift. The mastoid air cells are partially opacified bilaterally. Left frontal soft tissue swelling. Gas is seen in the subcutaneous tissues. There is a focal fracture which extends through the frontal bone involving the right frontal sinus, series 7 image 86. No additional calvarial fracture. Maxillofacial: There are multiple fractures. The frontal fracture which extends into the right frontal sinus is again noted. There is mild buckling of the right aspect of the nasal bone which is suspicious for a fracture. There is a mildly depressed fracture of the anterior wall of the left maxillary sinus. Nondisplaced fracture at the posterior lateral wall of the left maxillary sinus. There is associated buckling. There is a fracture at the left inferior orbital rim. There are fractures of the anterior, lateral, and medial carbajal of the right maxillary sinus. The pterygoid plates appear intact. Zygomatic arches are intact. The lamina papyracea are intact. There is near complete opacification of the maxillary sinuses. Fluid levels in the sphenoid sinuses. Partial opacification of the ethmoid air cells and right frontal sinus. The nasal septum significantly deviates to the right. Partial opacification of the nasal cavities. The mandibular heads are well-seated in the condylar fossa. Degenerative changes bilaterally. The globes are intact. There is gas at the inferior margin of the left orbit. No retrobulbar gas. Cervical spine: Cervical fusion hardware spans C3-C7. Alignment of the cervical spine is unchanged from prior. No evidence of acute fracture or subluxation. The atlantoaxial and atlantooccipital articulations are intact. Marked disc space narrowing at C7-T1 is unchanged. Multilevel facet arthropathy. Visualized portions of the lung apices are unremarkable. Postsurgical changes in the region of the thyroid. Surgical clips noted. IMPRESSION: 1. Multiple facial fractures, most prominently associated with both maxillary sinuses. Suspect right nasal bone fracture. 2. Central frontal calvarial fracture involving the right frontal sinus. Prominent overlying soft tissue swelling and gas. 3. Diffuse opacification of the paranasal sinuses, likely with blood products. 4. No acute intracranial findings. No acute fracture or malalignment of the cervical spine. DICTATED BY: MAYRA PRESLEY MD DATE/TIME DICTATED:02/02/171220 CNC SET UP OPERATOR:ALINE DATE/TIME TRANSCRIBED:02/02/171220 PATIENT: COURTNEY GEIGER PRESENT AGE: 81 PATIENT ACCOUNT NO: [id number] : 35 LOCATION: [facility] ORDERING PHYSICIAN: MELI BECK SERVICE DATE: 02/02/17 EXAM TYPE: CAT - CT CHEST WO IV CONTRAST EXAMINATION: CT CHEST WITHOUT CONTRAST CLINICAL INFORMATION: Status post fall. Head strike. Chest pain. COMPARISON: CT chest of 11/02/2016 and multiple previous CTs dated back to 01/29/2010. TECHNIQUE: Multidetector volumetric CT imaging of the chest was done. Axial MIP volume rendering provided. Sagittal and coronal reformatted images were obtained. 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 Right-sided multiple healed rib fractures are again noted. Surgical clips are noted in the right upper abdominal quadrant from prior cholecystectomy. LUNGS AND PLEURA: There is no evidence of pleural effusion or pneumothorax. Scattered areas of tree-in-bud opacities some in the bilateral lungs, right greater than left, changes of bronchiectasis predominantly in the mid and lower lung jenkins, somewhat prominent changes of bronchiectasis in the right middle lobe (series 3 image 39 and 40/61), right basilar linear and patchy nodular opacities at all not significantly changed compared to CT scan of 06/22/2015. The changes have mildly worsened compared to study of 04/20/2011. No definite new findings are noted compared to last study. MEDIASTINUM: The cardiac size is normal. No pericardial effusion. Trachea and central bronchi are well patent. Moderate coronary calcifications are noted. No evidence of mediastinal or hilar adenopathy. Small hiatal hernia. Moderate calcific atherosclerosis of the aorta. AXILLA: No lymphadenopathy. UPPER ABDOMEN: Post surgical changes of cholecystectomy with surgical clips in the gallbladder fossa. No adrenal mass. OSSEOUS STRUCTURES: Multiple bilateral healed rib fractures, right greater than left are again noted. There is no evidence of acute rib fracture. No acute or suspicious osseous abnormality is noted. Mild degenerative changes in the spine. Lower anterior cervical fusion hardware is incompletely seen. IMPRESSION: 1. No acute intrathoracic abnormality. Specifically there is no evidence of lung contusion, pneumothorax, pleural effusion or acute rib fracture. 2. Chronic lung changes including changes of bronchiectasis as described above are not significantly change since previous CT of from October 2015. (MELI ZENDEJAS) Departure Departure Disposition: STILL A PATIENT Condition: Guarded Clinical Impression Primary Impression: Syncope Secondary Impressions: Epistaxis, Forehead laceration, Gait instability, Lip laceration, Maxillary sinus fracture, Nasal fracture Referrals: CHAPO CARNEY,ERON Miranda (PCP/Family) Departure Forms: Customer Survey General Discharge Information Admission Note Spoke With: KIMBERLY CARNEY,TALI Documentation of Exam: Documentation of any treatments & extenuating circumstances including Concerns Regarding Discharge (functional status, medication knowledge or non-compliance, living conditions, etc.) that warrant an admission rather than observation: [ Discussed patient with Dr. GREENWOOD who agrees with telemetry admission for concerns of syncope which patient requires IV antibiotics, pain management, ENT evaluation physical therapy consultation. Outpatient treatment at this time due to syncope and gait instability and fall risk would be medically harmful] (MELI ZENDEJAS) PA/CHEMICAL COMPOUNDER Co-Sign Statement Statement: ED Attending supervision documentation- [X] I saw and evaluated the patient. I have also reviewed all the pertinent lab results and diagnostic results. I agree with the findings and the plan of care as documented in the PA's/CHEMICAL COMPOUNDER's documentation. [] I have reviewed the ED Record and agree with the PA's/CHEMICAL COMPOUNDER's documentation. [] Additions or exceptions (if any) to the PAs/CHEMICAL COMPOUNDER's note and plan are summarized below: [] (ALEXIA CLARK,CIARA Cr) Critical Care Note Critical Care Note Critical Care Time: 30-74 min (MELI ZENDEJAS) sinus fractures and nasal fracture. IV was established patient FOR IV antibiotics. Patient has consideration for admission due to syncope and which in the emergency room patient has no acute abnormal blood work or EKG however upon ambulation patient felt significantly unsteady and a weight-bearing position and could not ambulate due to patient feeling uncomfortable walking. Discussed patient with ENT Dr. Paul in which she advised that patient can be appropriately managed at [facility] IV antibiotics were administered To the multiple lacerations sites the wounds were irrigated with sterile water and using sterile technique Betadine was applied been using 10 mL in total of 1% lidocaine local anesthesia was successful In total 1 L of sterile water was used for irrigation of the wounds To the inner lip- 2 cm gaping wound was noted I grossly approximated the margins with #3, 5-0 MONOFILAMENT absorbable sutures in which patient tolerated well To the external lip a 5 mm laceration was noted in which I repaired and align the vermilion border with #1 5-0 monofilament observable suture The bilateral frontal lacerations 2 were repaired with #7, 5-0 and #7, 5-0 no nonabsorbable sutures and in total 14 sutures were applied to the forehead. Margins were revised. Bacitracin was applied 7 RIGHT 7 LEFT 3 OUTSIDE LIP/ 1 INSIDE LIP (MELI ZENDEJAS) Departure Departure Disposition: STILL A PATIENT Condition: Guarded Clinical Impression Primary Impression: Syncope Secondary Impressions: Epistaxis, Forehead laceration, Gait instability, Lip laceration, Maxillary sinus fracture, Nasal fracture Referrals: CHAPO CARNEY,ERON Miranda (PCP/Family) Departure Forms: Customer Survey General Discharge Information Admission Note Spoke With: TALI HARRIS MD Documentation of Exam: Documentation of any treatments & extenuating circumstances including Concerns Regarding Discharge (functional status, medication knowledge or non-compliance, living conditions, etc.) that warrant an admission rather than observation: [ Discussed patient with Dr. GREENWOOD who agrees with telemetry admission for concerns of syncope which patient requires IV antibiotics, pain management, ENT evaluation physical therapy consultation. Outpatient treatment at this time due to syncope and gait instability and fall risk would be medically harmful] (MELI ZENDEJAS) PA/CHEMICAL COMPOUNDER Co-Sign Statement Statement: ED Attending supervision documentation- [X] I saw and evaluated the patient. I have also reviewed all the pertinent lab results and diagnostic results. I agree with the findings and the plan of care as documented in the PA's/CHEMICAL COMPOUNDER's documentation. [] I have reviewed the ED Record and agree with the PA's/CHEMICAL COMPOUNDER's documentation. [] Additions or exceptions (if any) to the PAs/CHEMICAL COMPOUNDER's note and plan are summarized below: [] (CIARA HALE DO) Critical Care Note Critical Care Note Critical Care Time: 30-74 min (MELI ZENDEJAS)
--- NOTE | 2017-02-02 11:06 | NUR ---
PT BIBA FROM [facility] AFTER A SYNCOPAL EPISODE. PT WAS WAITING IN LINE AT [facility] AND HAD A SYNCOPAL EPISOIDE. PT FELL ONTO THE GROUND HITTING HER HEAD. PT PRESENTS TO ER WITH LACS TO FORHEAD. PT DENIES FEELING DIZZY BEFORE OR AFTER EPISODE. PT HAD A BLOODY NOSE PRIOR TO ARRIVAL. PT ALSO HAS A SMALL LAC TO LIP EBONY ROBERTS AT BEDSIDE FOR EVAL
--- NOTE | 2017-02-02 11:52 | NUR ---
PT TO CAT SCAN VIA STRETCHER
--- NOTE | 2017-02-02 11:53 | NUR ---
LABS DRAWN AND SENT (BLUE,SST,PINK,LAV,SANCHES)
--- NOTE | 2017-02-02 11:53 | NUR ---
PT TO CT SCAN AT THIS TIME
[2017-02-02 11:57] LABS: ABSOLUTE BASOPHIL COUNT 0.1 /CUMM (0.0-0.2); ABSOLUTE EOSINOPHIL COUNT 0 /CUMM (0.0-0.7); ABSOLUTE GRANULOCYTE CT 11.9 /CUMM (1.4-6.5); ABSOLUTE LYMPH COUNT 0.6 /CUMM (1.2-3.4); ABSOLUTE MONOCYTE COUNT 0.3 /CUMM (0.10-0.60); BASOPHIL % 0.5 % (0.0-2.0); EOSINOPHIL % 0.2 % (0-5); HEMATOCRIT 40.1 % (37-47); MEAN CORPUSCULAR HGB 30.1 PG (27.0-31.0); MEAN CORPUSCULAR HGB CONC 33.4 G/DL (33.0-37.0); MEAN CORPUSCULAR VOLUME 90.2 FL (81.0-99.0); MEAN PLATELET VOLUME 7.3 FL (7.4-10.4); PLATELET COUNT 284 /CUMM (130-400); RBC DISTRIBUTION WIDTH 13.6 % (11.5-14.5); RED BLOOD CELL CT 4.44 /CUMM (4.20-5.40); WHITE BLOOD CELL COUNT 12.9 /CUMM (4.8-10.8)
[2017-02-02 12:16] LABS: PT 10.8 SEC (9.4-12.5); PTT 26 SEC (25-37)
--- NOTE | 2017-02-02 12:16 | NUR ---
PT RETURN FROM CAT SCAN
[2017-02-02 12:18] LABS: GRANULOCYTE % 92.3 % (42.2-75.2)
--- NOTE | 2017-02-02 12:35 | CT SCAN REPORT ---
EXAMINATION: NONCONTRAST HEAD CT NONCONTRAST MAXILLOFACIAL CT NONCONTRAST CERVICAL SPINE CT INDICATION INFORMATION: Fall with head strike. COMPARISON: 04/21/2016 TECHNIQUE: Separate noncontrast CT examinations of the head, maxillofacial bones, and cervical spine were performed. Coronal and sagittal images were created for each examination at the technologist workstation. FINDINGS: Head: No evidence of acute intracranial hemorrhage. No extra-axial fluid collections are seen. Lundy-white differentiation is maintained without evidence of acute territorial infarction. No hydrocephalus. Proportional prominence of the ventricles and sulcal spaces is consistent with mild volume loss. Patchy and confluent periventricular and deep white matter hypoattenuation is consistent with moderate small vessel ischemic change. No mass effect or midline shift. The mastoid air cells are partially opacified bilaterally. Left frontal soft tissue swelling. Gas is seen in the subcutaneous tissues. There is a focal fracture which extends through the frontal bone involving the right frontal sinus, series 7 image 86. No additional calvarial fracture. Maxillofacial: There are multiple fractures. The frontal fracture which extends into the right frontal sinus is again noted. There is mild buckling of the right aspect of the nasal bone which is suspicious for a fracture. There is a mildly depressed fracture of the anterior wall of the left maxillary sinus. Nondisplaced fracture at the posterior lateral wall of the left maxillary sinus. There is associated buckling. There is a fracture at the left inferior orbital rim. There are fractures of the anterior, lateral, and medial carbajal of the right maxillary sinus. The pterygoid plates appear intact. Zygomatic arches are intact. The lamina papyracea are intact. There is near complete opacification of the maxillary sinuses. Fluid levels in the sphenoid sinuses. Partial opacification of the ethmoid air cells and right frontal sinus. The nasal septum significantly deviates to the right. Partial opacification of the nasal cavities. The mandibular heads are well-seated in the condylar fossa. Degenerative changes bilaterally. The globes are intact. There is gas at the inferior margin of the left orbit. No retrobulbar gas. Cervical spine: Cervical fusion hardware spans C3-C7. Alignment of the cervical spine is unchanged from prior. No evidence of acute fracture or subluxation. The atlantoaxial and atlantooccipital articulations are intact. Marked disc space narrowing at C7-T1 is unchanged. Multilevel facet arthropathy. Visualized portions of the lung apices are unremarkable. Postsurgical changes in the region of the thyroid. Surgical clips noted. IMPRESSION: 1. Multiple facial fractures, most prominently associated with both maxillary sinuses. Suspect right nasal bone fracture. 2. Central frontal calvarial fracture involving the right frontal sinus. Prominent overlying soft tissue swelling and gas. 3. Diffuse opacification of the paranasal sinuses, likely with blood products. 4. No acute intracranial findings. No acute fracture or malalignment of the cervical spine.
--- NOTE | 2017-02-02 13:19 | CT SCAN REPORT ---
EXAMINATION: CT CHEST WITHOUT CONTRAST CLINICAL INFORMATION: Status post fall. Head strike. Chest pain. COMPARISON: CT chest of 11/02/2016 and multiple previous CTs dated back to 01/29/2010. TECHNIQUE: Multidetector volumetric CT imaging of the chest was done. Axial MIP volume rendering provided. Sagittal and coronal reformatted images were obtained. DLP: 189.99 mGy-cm FINDINGS: SENIOR LABEL SPECIALIST: Lower cervical fusion hardware is noted. Right-sided multiple healed rib fractures are again noted. Surgical clips are noted in the right upper abdominal quadrant from prior cholecystectomy. LUNGS AND PLEURA: There is no evidence of pleural effusion or pneumothorax. Scattered areas of tree-in-bud opacities some in the bilateral lungs, right greater than left, changes of bronchiectasis predominantly in the mid and lower lung jenkins, somewhat prominent changes of bronchiectasis in the right middle lobe (series 3 image 39 and 40/61), right basilar linear and patchy nodular opacities at all not significantly changed compared to CT scan of 06/22/2015. The changes have mildly worsened compared to study of 04/20/2011. No definite new findings are noted compared to last study. MEDIASTINUM: The cardiac size is normal. No pericardial effusion. Trachea and central bronchi are well patent. Moderate coronary calcifications are noted. No evidence of mediastinal or hilar adenopathy. Small hiatal hernia. Moderate calcific atherosclerosis of the aorta. AXILLA: No lymphadenopathy. UPPER ABDOMEN: Post surgical changes of cholecystectomy with surgical clips in the gallbladder fossa. No adrenal mass. OSSEOUS STRUCTURES: Multiple bilateral healed rib fractures, right greater than left are again noted. There is no evidence of acute rib fracture. No acute or suspicious osseous abnormality is noted. Mild degenerative changes in the spine. Lower anterior cervical fusion hardware is incompletely seen. IMPRESSION: 1. No acute intrathoracic abnormality. Specifically there is no evidence of lung contusion, pneumothorax, pleural effusion or acute rib fracture. 2. Chronic lung changes including changes of bronchiectasis as described above are not significantly change since previous CT of from October 2015.
--- NOTE | 2017-02-02 13:43 | History & Physical ---
SWATI CARNEY,CHRISTEL 02/02/17 1343: General Information and HPI History of Present Illness: 81-year-old female who's PMH of hypothyroidism not on home oxygen, hypertension, rheumatoid arthritis on maintenance prednisone and hyperlipidemia. She presented today to the ED after an episode of syncope which lasted for 1-2 minutes outside the [facility]. The patient's reports that she has been in her usual state of health before losing consciousness, there was no one with her to witness the episode. She lost consciousness for about 1-2 minutes after standing for around 10 minutes in the DMV the patient doesn't recall the event. She denies any prodromal symptoms before the episode. She fell down and hurt her face on the sidewalk which caused multiple facial lacerations and fractures, After regaining consciousness She reports feeling weak. The patient denies any headache, palpitation, chest pain, fever or unusual feelings before the episode. She reports feeling weak after regaining consciousness. She also denies any changes to her medications recently. Allergies/Medications Allergies: Coded Allergies: hydromorphone (From DILAUDID) (Severe, SYNCOPE 04/21/16) morphine (Severe, SYNCOPE 04/21/16) oxycodone (Severe, UNKNOWN 09/19/15) tramadol (Severe, SYNCOPE 04/21/16) Sulfa (Sulfonamide Antibiotics) (Intermediate, HIVES 09/19/15) latex (Intermediate, BAD RASH 06/15/16) shrimp (HIVES, RASH 09/19/15) Past History Travel History Traveled to [place] past 21 day No Medical History Neurological: 1SCIATICA EENT: cataracts, [place] Cardiovascular: hypertension, hyperlipidemia Respiratory: COPD, pneumonia, pulmonary nodules which have been stable on CT scanning Gastrointestinal: diverticulitis Hepatic: GALL BLADDER REMOVAL Renal: R KIDNEY STONES Musculoskeletal: osteoarthritis, rheumatoid arthritis, sciatica Psychiatric: NONE Endocrine: hypothyroidism, osteoporosis Blood Disorders: NONE Cancer(s): NONE BRICK PICKER/Reproductive: miscarriage History of MRSA: No History of VRE: No History of CDIFF: No Tetanus Vaccine: 02/02/17 Surgical History Surgical History: cholecystectomy, hysterectomy, spinal fusion, RAYA KNEE PARTIAL HYSTERECTOMY L FOOT RECONSTRUCTIVE SX CERVICAL FUSION FEMUR FX/SX/CHINO BILATERAL OOPHORECTOMY (BILATERAL) Past Family/Social History Family History Relations & Conditions if any SISTER (thyroid cancer). FATHER (heart failure from severe asthma). . Psychosocial History Who Do You Live With? spouse Services at Home: None Primary Language: Welsh Living Will? unknown Power of Home Economics Teacher/HCP? 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 Ambulation: independent, walker IADLs Independent: shopping, housework, finances, food prep, telephone, transportation , medication admin. Exam & Diagnostic Data Last 24 Hrs of Vital Signs/I&O Vital Signs Date Time Temp Pulse Resp B/P B/P Pulse O2 O2 Flow FiO2 Mean Ox Delivery Rate 02/02 1502 98.3 88 20 149/79 96 Room Air 02/02 1313 97.8 84 20 158/79 94 Room Air 02/02 1109 95 Room Air 02/02 1105 97.2 84 22 163/82 95 Room Air Intake & Output 02/02 1600 02/02 0800 02/02 0000 Intake Total Output Total Balance Patient 140 lb Weight Physical Exam General Appearance Alert, Oriented X3, Cooperative, in distress due to facial laceration and fracutre Skin No Rashes, multiple facial bruises and laceration Skin Temp/Moisture Exam: Warm/Dry HEENT Mucous Membr. moist/pink Neck Supple Assessment/Plan Assessment: 81-year-old female who's PMH of hypothyroidism not on home oxygen, hypertension, rheumatoid arthritis on maintenance prednisone and hyperlipidemia. She presented today to the ED after an episode of syncope which lasted for 1-2 minutes outside the DMV. The patient's reports that she has been in her usual state of health before losing consciousness, there was no one with her to witness the episode. She lost consciousness for about 1-2 minutes after standing for around 10 minutes in the DMV the patient doesn't recall the event. She denies any prodromal symptoms before the episode. She fell down and hurt her face on the sidewalk which caused multiple facial lacerations and fractures, After regaining consciousness She reports feeling weak. The patient denies any headache, palpitation, chest pain, fever or unusual feelings before the episode. She reports feeling weak after regaining consciousness. She also denies any changes to her medications recently. Vital signs on admission: temperature 97.2, pulse 84, RR 22, blood pressure 163/ 82. Labs on admission: WBC 12.9, RBCs 4.44, hemoglobin 13.4, platelets 284, sodium 142, potassium 4.1, chloride 106, BUN/creatinine 20, creatinine 0.8, glucose 183 troponin less than 0.01 INR 1.03 Pertinent imaging on admission: Facial CT: Possible facial fractures most prominent associated to maxillary sinuses, suspect right nasal bone fracture, central frontal fracture involving the right frontal sinus, prominent overlying soft tissue swelling and gas, diffuse opacification of the paranasal sinuses likely due to blood products, no acute intracranial findings Head CT, cervical spine CT, same findings chest CT: No acute intrathoracic abnormality, no evidence of lung contusion, pneumothorax, pleural effusion or acute rib fractures have any chronic lung changes including bronchiectasis as described before no significant changes since previous CT from October 2015. # Syncope: -Differential diagnosis includes arrhythmia, dehydration, orthostatic -Admit to telemetry -Neuro checks every 2 hours Orthostatics Rule out ACS by 3 sets of troponin and EKG Carotid ultrasound to rule out caused atherosclerosis Echocardiogram Monitor for arrhythmia Continue home meds of aspirin and statin cardiology consult (Dr. Montgomery) Neurology consult appreciated Monitor vitals, I's and O's, daily weights #Facial bone fracture, nasal bone fracture, calvarial fracture and bloody nasal discharge Facial lacerations were sutured in the ED Patient received tetanus in 1 dose of Kefzol in the ED We'll defer antibiotics to ENT opinion ENT consultation stat Might need at ICU for close monitoring and possible intubation pain control as well as Tylenol, Toradol #History of hypertension and hyperlipidemia Continue home dose of amlodipine, aspirin and statin #History of rheumatoid arthritis Continue home dose of prednisone 5 mg #History of hypothyroidism Continue levothyroxin DVT prophylaxis: Lovenox Heart healthy diet DNR/DNI As Ranked By This Provider Problem List: 1. Forehead laceration 2. Lip laceration 3. Nasal fracture 4. Maxillary sinus fracture 5. Syncope 6. Hyperlipidemia 7. Hypertension 8. Hypothyroidism 9. Gait instability Core Measures/Miscellaneous Acute Coronary Syndrome Last Known EF % 40 Cerebrovascular Accident CVA/TIA Diagnosis: No Congestive Heart Failure CHF Diagnosis: No VTE (View Protocol) VTE Risk Factors: Age > 40 [facility] prophylaxis d/t: No contraindications No VTE Pharm Prophylaxis d/t: No contraindications VTE Diagnosis: No VTE Type: NONE VTE Confirmed by (Test): NONE Sepsis (View Protocol) Severe Sepsis Present: No Septic Shock Septic Shock Present: No NELA KASPER 02/02/17 1417: Review of Systems Review of Systems Constitutional: Reports: malaise, weakness. Core Measures/Miscellaneous Acute Coronary Syndrome ACS Diagnosis: No Miscellaneous Documentation Attending Case Discussed With: JANNETH COLON M.D Primary Care Physician: ERON COWAN MD Patient sees these Specialists NONE Level of Patient Care: Critical Care (CRI) Resident Review Statement Resident Statement: examined this patient, discussed with internet researcher Other Findings: Patient is 81-year-old female with past medical history of osteoporosis, rheumatoid arthritis on maintenance prednisone therapy, hypertension, hyperlipidemia, COPD not on home oxygen, diverticulosis, hypothyroidism and was brought to the ED after an syncopal episode this morning. Patient reports that she was in her normal state of health this morning. She had a full breakfast and went to the [facility] to get some paperwork done. She was standing outside in the line for about 10 minutes when she suddenly fell down to the ground hitting her face flat on the sidewalk. As per the witnesses, patient was unconscious for about 1-2 minutes and suffered significant lacerations to her head, face, lips. She regained consciousness after about 2 minutes and found herself surrounded by EMS and the people there. Patient did not does not recall the exact events but states that she did not have any chest pain, dizziness, palpitations, nausea, vomiting, lightheadedness, or aura prior to the episode. She denies any headache, vision difficulties, palpitations or chest pain at this time other than pain in her lips and difficulty breathing. Patient reports that she had similar episodes of syncope in the past and recalls 2 of the episodes. She follows up with Dr. Montgomery as an outpatient. In the ED temperature 97.2, pulse 84, respiration 22, blood pressure 163/82, saturating 95% on room air. CBC showed a white count of 12.9, electrolytes normal, troponins negative. CT scan of the cervical spine, head, and maxillofacial showed multiple facial fractures, most prominently in both maxillary sinuses. Suspected right nasal bone fracture. Patient also has central frontal calvarial fracture involving the right frontal sinus. Soft tissue swelling and gas. Diffuse opacification of the paranasal sinuses likely with blood products. No cervical spine findings packs fracture. Patient received lidocaine injection in the ED and her lacerations were sutured. Physical exam Gen.: Awake and alert and oriented, in moderate distress Skin: Multiple lacerations noted over her upper and lower lip, bruising noted over the forehead and swelling of the entire face. CVS: S1 and S2 heard, no murmur Chest: Normal breath sounds Extremities: No pedal edema Neurological: Power 5 /5 in all extremities, cranial nerves II-12 intact, reflexes intact and gait instability. Plan #1 Syncopal episode: Could be secondary to arrhythmias dehydration, orthostatics , -Admit patient to telemetry -Neuro checks every 2 hours -Check orthostatics -3 sets of troponin and EKG to rule out ACS -Check an echocardiogram(echo from 2009 showed stage I diastolic dysfunction EF more than 60%) -We will get carotid ultrasound -Continue home medications aspirin and statin -Cardiology consult with Dr. Montgomery -Consider neurology consult #2 Multiple fractures of the facial bones, nasal bone fracture, calvarial fracture, bloody discharge in sinuses. -Lacerations were sutured in the ER -Patient received tetanus in 1 dose of Kefzol in in the ER. Will give 1 dose of Vancomycin and continue Unasyn. -Ice packs application on the face frequently -Patient will require stat ENT consult. Low threshold for intubation if signs of respiratory compromise. Spoke to Dr Paul who agrees to watching patient in ICU for close monitoring. -Close neurological checks every 2 hours -Pain control with IV Tylenol and Toradol(patient allergic to morphine) #3 history of hypertension and hyperlipidemia -Continue amlodipine, aspirin and statin #4 history of rheumatoid arthritis -Continue prednisone 5 mg #5 hypothyroidism -Continue levothyroxinE DVT prophylaxis subcutaneous Lovenox Moderate /severe pain pathway Heart healthy diet DNR/DNI DARLENE CARNEY,JANNETH 02/02/17 1446: General Information and HPI Allergies/Medications Home Med list Acetaminophen (Tylenol Arthritis) 650 MG TABLET.ER 1 TAB PO BID PAIN ( Reported) Albuterol Sulfate (Proair Hfa) 8.5 GM HFA.AER.AD 2 PUF INH Q4-6 PRN PRN COPD (Reported) Reason to Stop at ADM: [facility] NEBS ORDERS Amlodipine Besylate (Norvasc) 5 MG TABLET 1 TAB PO DAILY HYPERTENSION ( Reported) Amoxicillin/Potassium Clav (Augmentin 875-125 Tablet) 875 MG-125 MG TABLET 1 TAB PO BID FACIAL FRACTURES Aspirin (Children's Aspirin) 81 MG TAB.CHEW 1 TAB PO DAILY HEART (Reported) Fluticasone/Salmeterol (Advair 250-50 Diskus) 1 EACH BLST.W.DEV 1 PUF INH BID COPD (Reported) Reason to Stop at ADM: [facility] NEBS ORDERS Ipratropium/Albuterol Sulfate (Iprat-Albut 0.5-3(2.5) MG/3 Ml) 0.5 MG-3 MG (2.5 MG BASE)/3 ML AMPUL.NEB 1 PO PRN SHORTNESS OF BREATH (Reported) Levothyroxine Sodium 50 MCG TABLET 1 TAB PO DAILY AC THYROID (Reported) Lovastatin 40 MG TABLET 1 TAB PO DAILY HYPERCHOLESTEROL (Reported) with food Prednisone 5 MG TABLET 1 TAB PO DAILY COPD/RA (Reported) Restart after completing the current taper Tamsulosin HCl (Flomax) 0.4 MG CAP.ER.24H 1 CAP PO DAILY BLADDER Attending MD Review Statement Attending Statement Attending MD Statement: examined this patient, agreed w/resident/PA/MATTRESS MAKER, discussed with family, reviewed EMR data (avail), discussed with nursing, discussed with case mgmt, amended to note Attending Assessment/Plan: Patient is an 81-year-old female with history of hypertension, COPD on oxygen dependent and steroid dependent rheumatoid arthritis. She was in her usual state of health today while at the [facility] lying for about 10 minutes when she passed out falling 4 to on her face. She was reported to have been unconscious for about 2 minutes. She denied any dizziness. She denied any palpitations. She denied any chest pain. She did admit to history of syncope in the past while in the hospital. Daughter believes that it related to pain medication she received at that time. She has Dilaudid listed under her allergies with severe syncope listed as the symptom. In the emergency room she was found bilaterally and oriented 3. She was hemodynamically stable. Head CT revealed multiple facial fractures most prominently associated with both maxillary sinuses, suspect right nasal bone fracture. Central frontal calvarial fracture involving the right frontal sinus. Prominent overlying soft tissue swelling and gas. Diffuse opacification of the paranasal sinuses, likely with blood products. No acute intracranial findings. No acute fracture or malalignment of the cervical spine. Patient was seen and evaluated by the ER physician executive assistant. 14 sutures were placed over her facial lacerations an additional placed in the inner lower lip. Patient was transferred to the inpatient medical service for further management. Recommendation was made by the hospitalist service for ENT evaluation following which the ER PA did contact the ENT surgeon carbon brush maker. Case discussed with ED Attending Dr Elliott Rivero who states pateint is medically stable to be admitted to the In-patient service here at [facility]. Gen. appearance: Not in acute respiratory distress. Well-developed. HEENT: Sutured lacerations over the lower frontal bone just above the orbit bilaterally. Pupils are equal and reactive to light and accommodation. Extraocular muscle movement is intact. There is no pain with extraocular muscle movement. Mild left periorbital ecchymosis. Lower lip swelling. Neck: Supple with no jugular venous distention. No carotid bruit. Heart: S1-S2 regular with no audible normal Lungs: Good entry bilaterally, clear to auscultation Abdomen: Soft, nontender with normal bowel sounds Extremities: No pedal edema Neurologic: Alert and oriented 3. Power is 5 out of 5 in all extremities. There is no focal deficit. Problems: 1. Head trauma with skull fracture, maxillary sinus fracture and possible right nasal bone fracture 2. Syncope; probably vasovagal in etiology 3. COPD Plan: -Admit to the inpatient service. -Awaiting evaluation by the ENT service. ENT on-call has been contacted by the emergency department. - Patient is currently maintaining saturation on room air. She reports mostly mild breathing. - Monitor pulse oximetry. Continue her home bronchodilator regimen. -IV hydration as she appears to have mild pre-renal azotemia. -She patient developed respiratory distress contact the pulmonology and ENT service immediately. -Telemetry monitoring, carotid Dopplers, echocardiogram. Check orthostatic blood pressure. -Pain management with IV Tylenol. Avoid opioids due to her previous drug reaction. -Continue empiric antibiotic therapy.
--- NOTE | 2017-02-02 15:00 | NUR ---
EBONY HORTON IN ROOM FOR SUTURES. PT REFUSED IV TORADOL R/T CONCERN FOR ALLERGIC REACTION. 1G IV TYLENOL GIVEN
--- NOTE | 2017-02-02 15:28 | NUR ---
PT TO US
--- NOTE | 2017-02-02 15:41 | NUR ---
PT HAS ROOM 189-2
--- NOTE | 2017-02-02 15:47 | NUR ---
PT RETURNED FROM US
--- NOTE | 2017-02-02 16:03 | ULTRASOUND REPORT ---
EXAMINATION: DUPLEX BILATERAL CAROTID ULTRASOUND CLINICAL INFORMATION: Syncope COMPARISON: None. TECHNIQUE: Duplex bilateral carotid US was performed using real-time ultrasound and Doppler techniques (integrating B-mode 2D vascular images, Doppler spectral analysis and color flow Doppler imaging). These techniques were utilized to interrogate the extracranial carotid and vertebral arteries bilaterally. The degree of stenosis is based off criteria similar to NASCET. FINDINGS: 1. On the right: Plaque is present at the carotid bifurcation but velocity measurements are normal and do not suggest a stenosis of greater than 50% diameter reduction in the right ICA. The right external carotid artery shows no significant stenosis. The vertebral artery is patent demonstrating antegrade flow. 2. On the left: Plaque is present at the carotid bifurcation but velocity measurements are normal and do not suggest a stenosis of greater than 50% diameter reduction in the left ICA. The left external carotid artery shows no significant stenosis. The vertebral artery is patent demonstrating antegrade flow. IMPRESSION: Plaque is present in the internal carotid arteries but velocity measurements are normal and there is no evidence to suggest a hemodynamically significant stenosis of greater than 50% diameter reduction.
--- NOTE | 2017-02-02 16:32 | NUR ---
REPORT TO SH[facility] ON 1N
--- NOTE | 2017-02-02 17:47 | NUR ---
PT HAS [facility] ROOM ASSIGNMENT 110-1
--- NOTE | 2017-02-02 19:07 | Cons- Cardiology ---
General Information and HPI Consulting Request Date of Consult: 02/02/17 Requested By: JANNETH COLON M.D Reason for Consult: Syncopal episode. Source of Information: patient, family, old records Exam Limitations: poor historian History of Present Illness: Mrs. Sandra Paige is an 81-year-old female with a history of former remote tobacco use, COPD/asthma, pulmonary nodules, hypertension, dyslipidemia, hypothyroidism, rheumatoid arthritis, and recurrent syncope who presented following another unwitnessed syncopal episode. She was at the [facility] and standing for approximately 10 minutes outside when she had a sudden loss of consciousness without any prodromal symptoms with the exception of some back discomfort secondary to her chronic, intermittent "sciatica". She was reportedly "out" on to 2 minutes before "coming to". She denied any recent change in her medications. She thinks this may have been her fourth syncopal episode with one occurring in the past when she had a urinary tract infection and at least one other one when she was on pain medication. Allergies/Medications Allergies: Coded Allergies: hydromorphone (From DILAUDID) (Severe, SYNCOPE 04/21/16) morphine (Severe, SYNCOPE 04/21/16) oxycodone (Severe, UNKNOWN 09/19/15) tramadol (Severe, SYNCOPE 04/21/16) Sulfa (Sulfonamide Antibiotics) (Intermediate, HIVES 09/19/15) latex (Intermediate, BAD RASH 06/15/16) shrimp (HIVES, RASH 09/19/15) Home Med List: Acetaminophen (Tylenol Arthritis) 650 MG TABLET.ER 1 TAB PO BID PAIN ( Reported) Albuterol Sulfate (Proair Hfa) 8.5 GM HFA.AER.AD 2 PUF INH Q4-6 PRN PRN COPD (Reported) Reason to Stop at ADM: [facility] NEBS ORDERS Amlodipine Besylate (Norvasc) 5 MG TABLET 1 TAB PO DAILY HYPERTENSION ( Reported) Aspirin (Children's Aspirin) 81 MG TAB.CHEW 1 TAB PO DAILY HEART (Reported) Fluticasone/Salmeterol (Advair 250-50 Diskus) 1 EACH BLST.W.DEV 1 PUF INH BID COPD (Reported) Reason to Stop at ADM: [facility] NEBS ORDERS Ipratropium/Albuterol Sulfate (Iprat-Albut 0.5-3(2.5) MG/3 Ml) 0.5 MG-3 MG (2.5 MG BASE)/3 ML AMPUL.NEB 1 PO PRN SHORTNESS OF BREATH (Reported) Levothyroxine Sodium 50 MCG TABLET 1 TAB PO DAILY AC THYROID (Reported) Lovastatin 40 MG TABLET 1 TAB PO DAILY HYPERCHOLESTEROL (Reported) with food Prednisone 5 MG TABLET 1 TAB PO DAILY COPD/RA (Reported) Restart after completing the current taper Tamsulosin HCl (Flomax) 0.4 MG CAP.ER.24H 1 CAP PO DAILY BLADDER Review of Systems Review of Systems: A 14 point systems review was obtained and was noncontributory, other than as above. 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 FATHER (heart failure from severe asthma). . Psychosocial History Who Do You Live With? spouse Services at Home: None Primary Language: Italian Living Will? unknown Power of Rn Diabetes Educator/HCP? 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 Ambulation: independent, walker IADLs Independent: shopping, housework, finances, food prep, telephone, transportation , medication admin. Exam & Diagnostic Data Vital Signs and I&O Vital Signs Date Time Temp Pulse Resp B/P B/P Pulse O2 O2 Flow FiO2 Mean Ox Delivery Rate 02/02 1839 98.1 71 18 167/66 96 Room Air 02/02 1611 98.3 72 18 163/78 94 Room Air 02/02 1502 98.3 88 20 149/79 96 Room Air 02/02 1313 97.8 84 20 158/79 94 Room Air 02/02 1109 95 Room Air 02/02 1105 97.2 84 22 163/82 95 Room Air Intake & Output 07/21 1600 02/02 0800 02/02 0000 02/01 1600 02/01 0800 02/01 0000 Intake Total Output Total Balance Patient 140 lb Weight Physical Exam: Well-developed, overweight elderly female with multiple areas of facial ecchymosis and sutures. Vital signs: See above. HEENT: Normocephalic, traumatic, EOMI, slightly dry mucous membranes. Neck: No JVD, no bruits. Lungs: Few bibasilar crackles. Heart: S1, S2 with soft (grade 1/6) systolic murmur. No gallop or rub appreciated. PMI fifth ICS at MCL. Abdomen: Soft, nontender, positive bowel sounds. Extremities: No edema. Labs/Jag Results: Laboratory Tests 02/02 1150 Chemistry Sodium (137 - 145 mmol/L) 142 Potassium (3.5 - 5.1 mmol/L) 4.1 Chloride (98 - 107 mmol/L) 106 Carbon Dioxide (22 - 30 mmol/L) 22 Anion Gap (5 - 16) 14 BUN (7 - 17 mg/dL) 20 H Creatinine (0.5 - 1.0 mg/dL) 0.8 Estimated GFR (>60 ml/min) > 60 BUN/Creatinine Ratio (7 - 25 %) 25.0 Glucose (65 - 99 mg/dL) 183 H Calcium (8.4 - 10.2 mg/dL) 9.7 Magnesium (1.6 - 2.3 mg/dL) 1.8 Total Bilirubin (0.2 - 1.3 mg/dL) 0.7 AST (14 - 36 U/L) 26 ALT (9 - 52 U/L) 32 Alkaline Phosphatase (<127 U/L) 52 Troponin I (< 0.11 ng/ml) < 0.01 Total Protein (6.3 - 8.2 g/dL) 7.1 Albumin (3.5 - 5.0 g/dL) 4.5 Globulin (1.9 - 4.2 gm/dL) 2.6 Albumin/Globulin Ratio (1.1 - 2.2 %) 1.7 TSH (0.270 - 4.200 uIU/mL) 1.400 Free T4 (0.85 - 1.93 ng/dL) 0.97 Coagulation PT (9.4 - 12.5 SEC) 10.8 INR (0.90 - 1.19) 1.03 APTT (25 - 37 SEC) 26 Hematology CBC w Diff NO MAN DIFF REQ WBC (4.8 - 10.8 /CUMM) 12.9 H RBC (4.20 - 5.40 /CUMM) 4.44 Hgb (12.0 - 16.0 G/DL) 13.4 Hct (37 - 47 %) 40.1 MCV (81.0 - 99.0 FL) 90.2 MCH (27.0 - 31.0 PG) 30.1 RDW (11.5 - 14.5 %) 13.6 Plt Count (130 - 400 /CUMM) 284 MPV (7.4 - 10.4 FL) 7.3 L Gran % (42.2 - 75.2 %) 92.3 H Lymphocytes % (20.5 - 51.1 %) 4.6 L Monocytes % (1.7 - 9.3 %) 2.4 Eosinophils % (0 - 5 %) 0.2 Basophils % (0.0 - 2.0 %) 0.5 Absolute Granulocytes (1.4 - 6.5 /CUMM) 11.9 H Absolute Lymphocytes (1.2 - 3.4 /CUMM) 0.6 L Absolute Monocytes (0.10 - 0.60 /CUMM) 0.3 Absolute Eosinophils (0.0 - 0.7 /CUMM) 0 Absolute Basophils (0.0 - 0.2 /CUMM) 0.1 PUBS MCHC (33.0 - 37.0 G/DL) 33.4 Diagnostic Data EKG Results (02/02/2017) sinus rhythm, left axis deviation, nonspecific minor ST-T wave abnormalities in the high lateral leads, and prominent U waves in the inferior leads. Other Results Chest CT (02/02/2017):1. No acute intrathoracic abnormality. Specifically there is no evidence of lung contusion, pneumothorax, pleural effusion or acute rib fracture. 2. Chronic lung changes including changes of bronchiectasis as described above are not significantly change since previous CT of from October 2015. Head, cervical spine, maxillofacial CT (02/02/2017):1. Multiple facial fractures , most prominently associated with both maxillary sinuses. Suspect right nasal bone fracture. 2. Central frontal calvarial fracture involving the right frontal sinus. Prominent overlying soft tissue swelling and gas. 3. Diffuse opacification of the paranasal sinuses, likely with blood products. 4. No acute intracranial findings. No acute fracture or malalignment of the cervical spine. Carotid ultrasound (02/02/2017):Plaque is present in the internal carotid arteries but velocity measurements are normal and there is no evidence to suggest a hemodynamically significant stenosis of greater than 50% diameter reduction. Assessment/Plan Assessment/Plan 81 y-o-w-f w/ hx fmr remote tob use, severe COPD/asthma, pulmonary nodules, HTN, HLD, hypothyroidism, RA, and recurrent syncope who presented following another unwitnessed syncopal episode w/o prodrome after she had been standing for approximately 10 minutes and experiencing low back pain. The etiology for her presentation is presently unclear, however, her BUN/ creatinine suggests the likelihood of some mild intravascular depletion. Recommendations: * Telemetry admission, follow-up troponins, follow-up electrocardiogram in a.m. * Check an echocardiogram to assess left ventricular function, occult valvular disease, etc. * Hold amlodipine for the short term. * Orthostatic blood pressure checks. * Gentle IV hydration. * ENT evaluation. * DVT prophylaxis. Further recommendations will follow, Thank you. . Consult Acknowledgment - Thank you for your consult request.
--- NOTE | 2017-02-02 19:40 | NUR ---
REPORT TO [facility] IN ICU
[2017-02-03] VITALS: BP 158/76
[2017-02-03 05:18] LABS: ABSOLUTE BASOPHIL COUNT 0 /CUMM (0.0-0.2); ABSOLUTE EOSINOPHIL COUNT 0.1 /CUMM (0.0-0.7); ABSOLUTE LYMPH COUNT 1.4 /CUMM (1.2-3.4); ABSOLUTE MONOCYTE COUNT 0.5 /CUMM (0.10-0.60); BASOPHIL % 0.4 % (0.0-2.0); EOSINOPHIL % 1.2 % (0-5); GRANULOCYTE % 77.4 % (42.2-75.2); HEMATOCRIT 37.6 % (37-47); MEAN CORPUSCULAR HGB 29.9 PG (27.0-31.0); MEAN CORPUSCULAR HGB CONC 32.8 G/DL (33.0-37.0); MEAN CORPUSCULAR VOLUME 91.2 FL (81.0-99.0); MEAN PLATELET VOLUME 7.2 FL (7.4-10.4); PLATELET COUNT 273 /CUMM (130-400); RBC DISTRIBUTION WIDTH 13.9 % (11.5-14.5); RED BLOOD CELL CT 4.13 /CUMM (4.20-5.40); WHITE BLOOD CELL COUNT 9.1 /CUMM (4.8-10.8)
[2017-02-03 08:00] VITALS: BP 164/80
--- NOTE | 2017-02-03 09:17 | PN- Att Addend ---
Attending Addendum Attending Brief Note Patient seen and examined. Resting comfortably and not in any acute distress. She was admitted to the intensive care unit for monitoring per recommendations of ENT service. No events overnight. She denies any difficulty breathing though she states she has to breathe through the mild most of the time. This morning she is complaining of difficulty swallowing. She reports difficulty swallowing even liquids. Denies any pain with swallowing. Denies chest pain. Denies dizziness. Overnight orthostatic vitals were negative. Carotid Doppler showed no significant stenosis. Vital Signs Date Time Temp Pulse Resp B/P B/P Pulse O2 O2 Flow FiO2 Mean Ox Delivery Rate 02/03 08 93 Room Air Room Air 02/03 0800 97.7 78 24 164/80 93 Room Air Room Air 02/03 0000 Room Air 02/03 0000 98.4 75 15 158/76 94 Room Air 02/02 2334 98 184/90 02/02 2250 Room Air 02/02 1839 98.1 71 18 167/66 96 Room Air 02/02 1611 98.3 72 18 163/78 94 Room Air 02/02 1502 98.3 88 20 149/79 96 Room Air 02/02 1313 97.8 84 20 158/79 94 Room Air 02/02 1109 95 Room Air 02/02 1105 97.2 84 22 163/82 95 Room Air HEENT: Seizure bilateral periorbital swelling and ecchymosis. Intact sutures over the forehead. Clotted blood in the nostrils. Swollen lower lip with sutures in place. Pupils equal and reactive to light. Neck: Supple Heart: S1-S2 regular no audible murmur Lungs: Good entry bilaterally, clear to auscultation Abdomen: Soft, nontender with normal bowel sounds Extremities: No pedal edema Neurologic: Alert and oriented 3 with no focal neurologic deficit. Laboratory Tests 02/03/17 0450: Anion Gap 12, Estimated GFR > 60, BUN/Creatinine Ratio 25.0, CBC w Diff NO MAN DIFF REQ, RBC 4.13 L, MCV 91.2, MCH 29.9, RDW 13.9, MPV 7.2 L, Gran % 77.4 H, Lymphocytes % 15.0 L, Monocytes % 6.0, Eosinophils % 1.2, Basophils % 0.4, Absolute Granulocytes 7.0 H, Absolute Lymphocytes 1.4, Absolute Monocytes 0.5, Absolute Eosinophils 0.1, Absolute Basophils 0, PUBS MCHC 32.8 L 02/03/17 0040: Troponin I 0.01 02/02/17 1940: Troponin I < 0.01 02/02/17 1150: Anion Gap 14, Estimated GFR > 60, BUN/Creatinine Ratio 25.0, Glucose 183 H, Calcium 9.7, Magnesium 1.8, Total Bilirubin 0.7, AST 26, ALT 32, Alkaline Phosphatase 52, Troponin I < 0.01, Total Protein 7.1, Albumin 4.5, Globulin 2.6, Albumin/Globulin Ratio 1.7, TSH 1.400, Free T4 0.97, PT 10.8, INR 1.03, APTT 26, CBC w Diff NO MAN DIFF REQ, RBC 4.44, MCV 90.2, MCH 30.1, RDW 13.6, MPV 7.3 L, Gran % 92.3 H, Lymphocytes % 4.6 L, Monocytes % 2.4, Eosinophils % 0.2, Basophils % 0.5, Absolute Granulocytes 11.9 H, Absolute Lymphocytes 0.6 L, Absolute Monocytes 0.3, Absolute Eosinophils 0, Absolute Basophils 0.1, PUBS MCHC 33.4 Microbiology 02/02 2300 UPPER RESP: Surveillance Culture - RECD 02/02 1810 BLOOD: Blood Culture - RECD 02/02 1800 BLOOD: Blood Culture - RECD Problems: 1. Head trauma 2. Syncope 3. COPD 4. Dysphagia Plan: -Awaiting evaluation by the ENT service. Inquire from the ENT service whether patient requires evaluation by the oral maxillofacial surgery service due to her severe facial trauma and fractures -Continue current pain regimen. -Continue prophylactic antibiotic therapy until evaluated by the ENT service. -Obtain echocardiogram. Continue telemetry monitoring. They done which is an issue service once patient has been cleared by the ENT service. -Keep nothing by mouth for now. Obtain swallow evaluation. Hydrate with D5 half and is at 5 mL per hour. -Blood pressure is stable. Resume amlodipine if recommended by the cardiology service. -Continue prednisone which she takes for her rheumatoid arthritis. No need for stress dose at this time.
--- NOTE | 2017-02-03 09:59 | PN- Cardiology ---
Subjective Subjective: Uncomfortable secondary to facial trauma sustained with syncopal episode. On telemetry no evidence of significant dysrhythmia and/or heart block. Objective Vital Signs and I&Os Vital Signs Date Time Temp Pulse Resp B/P B/P Pulse O2 O2 Flow FiO2 Mean Ox Delivery Rate 02/03 0918 92 Room Air Room Air 02/03 0800 93 Room Air Room Air 02/03 0800 97.7 78 24 164/80 93 Room Air Room Air 02/03 0000 Room Air 02/03 0000 98.4 75 15 158/76 94 Room Air 02/02 2334 98 184/90 02/02 2250 Room Air 02/02 1839 98.1 71 18 167/66 96 Room Air 02/02 1611 98.3 72 18 163/78 94 Room Air 02/02 1502 98.3 88 20 149/79 96 Room Air 02/02 1313 97.8 84 20 158/79 94 Room Air 02/02 1109 95 Room Air 02/02 1105 97.2 84 22 163/82 95 Room Air Intake & Output 02/03 1600 02/03 0800 02/03 0000 02/02 1600 02/02 0800 02/02 0000 Intake Total 968 295 Output Total 500 150 Balance 468 145 Intake, IV 848 175 Intake, Oral 120 120 Output, Urine 500 150 Patient 140 lb 140 lb Weight Weight Reported by Patient Measurement Method Physical Exam: Well-developed, overweight elderly female in no acute distress. Vital signs: See above. Lungs: Clear to auscultation bilaterally. Heart: S1, S2 with grade 1/6 systolic murmur. No gallop, or rub appreciated. Abdomen: Soft, nontender, positive bowel sounds. Extremities: No edema. Current Medications: Current Medications Sig/Maya Start time Last Medication Dose Route Stop Time Status Admin Acetaminophen 0 .STK-MED ONE 02/02 1503 DC IV Acetaminophen 325 MG Q6P PRN 02/02 1400 AC PO Acetaminophen 1,000 MG Q6 PRN 02/02 1400 AC 02/02 IV 2304 Albuterol Sulfate 3 ML DAILY 02/03 1000 AC 02/03 INH 0916 Albuterol Sulfate 3 ML Q4P PRN 02/02 2015 AC INH Amlodipine Besylate 5 MG DAILY 02/02 2330 AC 02/02 PO 2334 Ampicillin Sodium/ 0 .STK-MED ONE 02/02 1926 DC Sulbactam Sodium .ROUTE Ampicillin Sodium/ 1,500 MG Q6 02/02 1800 AC 02/03 Sulbactam Sodium IV 0541 Sodium Chloride 100 ML Atorvastatin Calcium 40 MG 1700 02/03 1700 AC PO Cefazolin Sodium 0 .STK-MED ONE 02/02 1357 DC .ROUTE Cefazolin Sodium 1,000 MG ONCE ONE 02/02 1345 DC 02/02 IV 02/02 1346 1404 Dextrose/Sodium 1,000 ML Q13H 02/03 0830 AC Chloride IV Enoxaparin Sodium 40 MG DAILY 02/02 1358 DC SC Ipratropium [place] 2.5 ML DAILY 02/03 1000 AC 02/03 INH 0916 Ipratropium [place] 2.5 ML Q4 HRS NEEDED PRN 02/02 2015 AC INH Ketorolac 0 .STK-MED ONE 02/02 1457 DC Tromethamine .ROUTE Ketorolac 30 MG ONCE ONE 02/02 1400 DC Tromethamine IV 02/02 1401 Levothyroxine Sodium 0.05 MG DAILY AC 02/03 0700 AC 02/03 PO 0644 Potassium Chloride 40 MEQ ONCE ONE 02/03 0830 DC PO 02/03 0831 Prednisone 5 MG DAILY 02/03 1000 AC PO Sodium Chloride 1,000 ML Q13H 02/02 2000 DC 02/02 IV 02/03 0859 2124 Tetanus/Diphtheria 0 .STK-MED ONE 02/02 1305 DC Toxoids Adsorbed IM Tetanus/Diphtheria 0.5 ML ONCE ONE 02/02 1130 DC 02/02 Toxoids Adsorbed IM 02/02 1131 1311 Vancomycin HCl 1,000 MG ONCE ONE 02/02 1545 DC 02/02 Sodium Chloride 250 ML IV 02/02 1644 1703 Results Last 48 Hrs of Labs/Mics: Laboratory Tests 02/03/17 0450: Anion Gap 12, Estimated GFR > 60, BUN/Creatinine Ratio 25.0, CBC w Diff NO MAN DIFF REQ, RBC 4.13 L, MCV 91.2, MCH 29.9, RDW 13.9, MPV 7.2 L, Gran % 77.4 H, Lymphocytes % 15.0 L, Monocytes % 6.0, Eosinophils % 1.2, Basophils % 0.4, Absolute Granulocytes 7.0 H, Absolute Lymphocytes 1.4, Absolute Monocytes 0.5, Absolute Eosinophils 0.1, Absolute Basophils 0, PUBS MCHC 32.8 L 02/03/17 0040: Troponin I 0.01 02/02/17 1940: Troponin I < 0.01 02/02/17 1150: Anion Gap 14, Estimated GFR > 60, BUN/Creatinine Ratio 25.0, Glucose 183 H, Calcium 9.7, Magnesium 1.8, Total Bilirubin 0.7, AST 26, ALT 32, Alkaline Phosphatase 52, Troponin I < 0.01, Total Protein 7.1, Albumin 4.5, Globulin 2.6, Albumin/Globulin Ratio 1.7, TSH 1.400, Free T4 0.97, PT 10.8, INR 1.03, APTT 26, CBC w Diff NO MAN DIFF REQ, RBC 4.44, MCV 90.2, MCH 30.1, RDW 13.6, MPV 7.3 L, Gran % 92.3 H, Lymphocytes % 4.6 L, Monocytes % 2.4, Eosinophils % 0.2, Basophils % 0.5, Absolute Granulocytes 11.9 H, Absolute Lymphocytes 0.6 L, Absolute Monocytes 0.3, Absolute Eosinophils 0, Absolute Basophils 0.1, PUBS MCHC 33.4 Assessment/Plan Assessment/Plan 81 y-o-w-f w/ hx fmr remote tob use, COPD/asthma, pulmonary nodules, HTN, HLD, hypothyroidism, RA, and recurrent syncope who presented following another unwitnessed syncopal episode w/o prodrome after she had been standing for approximately 10 minutes and experiencing low back pain. The etiology for her presentation is presently unclear, however, her BUN/ creatinine suggests the likelihood of some mild intravascular depletion. No evidence of dysrhythmia/heart block thus far. Hemodynamically stable and can be transferred to telemetry from a cardiovascular standpoint. Continue telemetry? Yes Continue telemetry? Yes
--- NOTE | 2017-02-03 11:44 | NUR ---
RECEIVED PATIENT AT 0800 ORIENTED X3, ZALDIVAR, FC, C/O SOME FACIAL SORENESS 09/22. NOTED BILATERAL PERIORBITAL SWELLING/BRUISING, BILATERAL DIAGONAL LAC'S OVER EYEBROWNS W/ SUTURES, SWOLLEN NOSE BRIDGE, AND SUTURES TO THE OUTSIDE AND INSIDE OF MIDDLE BOTTOM LIP. ICE PACKS GIVEN TO SITES. OTHERWISE PATIENT DENIES COMPLAINTS, VSS, NSR ON THE [employer] AIRPLANE PILOT 70S-80S. UP TO 100S W/ ACTIVITY. SBP 150S-170S TO GIVEN NORVASC. ON ROOM AIR, LUNGS CLEAR/DIMINISHED. SATTING 93-95%. PT C/O SOME CONGESTION/CLEARING THROAT. ABDOMEN SOFT/NONTENDER, +BS, VOIDING IN BSC, CLEAR/KEMAL URINE. SKIN OTHERWISE INTACT. PATIENT C/O SOME DIFFICULTY SWALLOWING. SPEECH AND SWALLOW IN TO EVALUATE AND CLEARED FOR PUREE NECTAR DIET TOLERATED. PATIENT COUGHED W/ CLEAR LIQUIDS. GETTING D5-1/2 NS AT 75 MLS/HR THROUGH #[address] ALPS IN [address]ACE, HOLDING LOVENOX OF TODAY W/ BLOOD IN MAXILLARY SINUSES. OOB W/ SUPERVISION AND CANE TO BSC. GIVEN EMOTIONAL SUPPORT AND REORIENTED TO ROOM.
--- NOTE | 2017-02-03 12:02 | Event Note ---
Event Note Event Note: Case discussed with ENT Dr. Paul. Images were reviewed by her and based on history and objective imaging findings it was determined by the corporate consultant that the patient did not require any inpatient ENT evaluation and should be treated conservatively with cold compresses for pain relief; patient should follow up with Dr. Paul after discharge for further evaluation. Patient complained of dysphagia for which a swallow evaluation was ordered. Patient passed the swallow evaluation for which a diet of nectar/puree was recommended and ordered. Dr. Paul is aware of dysphagia. Patient does not require further ICU admission. Case discussed with optical technician Dr. Montgomery whom felt patient still needs further telemetry monitoring for her ongoing evaluation of syncope. Transfer order to telemetry floor placed. Lovenox was held as patient has evidence of recent bleeding in her sinuses, she has ALPS for DVT prophylaxis.
--- NOTE | 2017-02-03 12:22 | Patient Discharge Instructions ---
Discharge Instructions General Discharge Information You were seen/treated for: Syncope Mechanical fall Multiple fractures Rheumatoid arthritis Hypothyroidism You had these procedures: None Special Instructions: Schedule an appointment with ENT Dr. Paul as an outpatient in one week after discharge. Use cold compressess for pain relief. Take 2 tablets of Prednisone on 02/07 and 02/08 then resume to 1 tablet daily Take your antibiotics until completion Follow up with your primary care physician in one week after discharge. Follow-up with help desk intern in 1 week after discharge Diet Recommended Diet: Heart Healthy, mech soft and thin liquid Activity Full Activity/No Limits: Yes Acute Coronary Syndrome Inclusion Criteria At DC or during hospital stay patient has or had the following: ACS DIAGNOSIS No Discharge Core Measures Meds if any: Prescribed or Continued at Discharge Meds if any: NOT Prescribed or Continued at Discharge Congestive Heart Failure Inclusion Criteria At DC or during hospital stay patient has or had the following: CHF DIAGNOSIS No Discharge Core Measures Meds if any: Prescribed or Continued at Discharge Meds if any: NOT Prescribed or Continued at Discharge Cerebrovascular accident Inclusion Criteria At DC or during hospital stay patient has or had the following: CVA/TIA Diagnosis No Discharge Core Measures Meds if any: Prescribed or Continued at Discharge Meds if any: NOT Prescribed or Continued at Discharge Venous thromboembolism Inclusion Criteria VTE Diagnosis No VTE Type NONE VTE Confirmed by (Test) NONE Discharge Core Measures - Per Current guidelines, there needs to be overlap - treatment for the first 5 days of Warfarin therapy. - If discharged on Warfarin prior to 5 days of - overlap therapy, the patient will need to be - assessed for post discharge needs including - *Post discharge parental anticoagulation - *Warfarin and/or parental anticoagulation education - *Follow up date to check INR post discharge At least 5 days overlap therapy as Inpatient No Meds if any: Prescribed or Continued at Discharge Note: Overlap Therapy is Warfarin and Anticoagulant Meds if any: NOT Prescribed or Continued at Discharge
--- NOTE | 2017-02-03 13:07 | NUR ---
PT HAD 6 BEAT RUN OF VTACH. ASYMPTOMATIC. VSS. NO COMPLAINTS FROM PT. DR PEREIRA AWARE.
--- NOTE | 2017-02-03 13:30 | PN- Housestaff ---
Subjective Follow-up For: mutiple facial # Subjective: I saw the pt today at bedside, she was lying in her bed talking to her family.No over night events. She though c/o difficulty in swallowing water. She denies chest pain, dypnea, orthopnea, headche. She inquires if, the ENT doctor is going to see her. Review of Systems Constitutional: Reports: no symptoms. Objective Last 24 Hrs of Vital Signs/I&O Vital Signs Date Time Temp Pulse Resp B/P B/P Pulse O2 O2 Flow FiO2 Mean Ox Delivery Rate 02/03 1104 76 145/60 02/03 0918 92 Room Air Room Air 02/03 0800 93 Room Air Room Air 02/03 0800 97.7 78 24 164/80 93 Room Air Room Air 02/03 0000 Room Air 02/03 0000 98.4 75 15 158/76 94 Room Air 02/02 2334 98 184/90 02/02 2250 Room Air 02/02 1839 98.1 71 18 167/66 96 Room Air 02/02 1611 98.3 72 18 163/78 94 Room Air 02/02 1502 98.3 88 20 149/79 96 Room Air Intake & Output 02/03 1600 02/03 0800 02/03 0000 Intake Total 968 295 Output Total 500 150 Balance 468 145 Intake, IV 848 175 Intake, Oral 120 120 Output, Urine 500 150 Patient 140 lb Weight Weight Reported by Patient Measurement Method Physical Exam General Appearance: Alert, Oriented X3, Cooperative, No Acute Distress HEENT: Has raccoon eyes,( swelling around the eyes)Has pain over the site. No trouble with vision.tenderness + Cardiovascular: Regular Rate, Normal S1, Normal S2, No Murmurs Lungs: Clear to Auscultation Abdomen: Soft Neurological: Normal Gait, Normal Speech, Strength at 5/5 X4 Ext Extremities: No Tenderness/Swelling Current Medications: Current Medications Sig/Maya Start time Last Medication Dose Route Stop Time Status Admin Acetaminophen 0 .STK-MED ONE 02/02 1503 DC IV Acetaminophen 325 MG Q6P PRN 02/02 1400 AC PO Acetaminophen 1,000 MG Q6 PRN 02/02 1400 AC 02/03 IV 1111 Albuterol Sulfate 3 ML DAILY 02/03 1000 AC 02/03 INH 0916 Albuterol Sulfate 3 ML Q4P PRN 02/02 2015 AC INH Amlodipine Besylate 5 MG DAILY 02/02 2330 AC 02/03 PO 1104 Ampicillin Sodium/ 0 .STK-MED ONE 02/02 1926 DC Sulbactam Sodium .ROUTE Ampicillin Sodium/ 1,500 MG Q6 02/02 1800 AC 02/03 Sulbactam Sodium IV 1222 Sodium Chloride 100 ML Atorvastatin Calcium 40 MG 1700 02/03 1700 AC PO Cefazolin Sodium 0 .STK-MED ONE 02/02 1357 DC .ROUTE Cefazolin Sodium 1,000 MG ONCE ONE 02/02 1345 DC 02/02 IV 02/02 1346 1404 Dextrose/Sodium 1,000 ML Q13H 02/03 0830 DC 02/03 Chloride IV 1107 Enoxaparin Sodium 40 MG DAILY 02/02 1358 DC SC Ipratropium Anton 2.5 ML DAILY 02/03 1000 AC 02/03 INH 0916 Ipratropium [place] 2.5 ML Q4 HRS NEEDED PRN 02/02 2015 AC INH Ketorolac 0 .STK-MED ONE 02/02 1457 DC Tromethamine .ROUTE Ketorolac 30 MG ONCE ONE 02/02 1400 DC Tromethamine IV 02/02 1401 Levothyroxine Sodium 0.05 MG DAILY AC 02/03 0700 AC 02/03 PO 0644 Potassium Chloride 40 MEQ ONCE ONE 02/03 0830 DC 02/03 PO 02/03 0831 1104 Prednisone 5 MG DAILY 02/03 1000 AC 02/03 PO 1100 Sodium Chloride 1,000 ML Q13H 02/02 2000 DC 02/02 IV 02/03 0859 2124 Vancomycin HCl 1,000 MG ONCE ONE 02/02 1545 DC 02/02 Sodium Chloride 250 ML IV 02/02 1644 1703 Last 24 Hrs of Lab/Jag Results Last 24 Hrs of Labs/Mics: Laboratory Tests 02/03/17 0450: Anion Gap 12, Estimated GFR > 60, BUN/Creatinine Ratio 25.0, CBC w Diff NO MAN DIFF REQ, RBC 4.13 L, MCV 91.2, MCH 29.9, RDW 13.9, MPV 7.2 L, Gran % 77.4 H, Lymphocytes % 15.0 L, Monocytes % 6.0, Eosinophils % 1.2, Basophils % 0.4, Absolute Granulocytes 7.0 H, Absolute Lymphocytes 1.4, Absolute Monocytes 0.5, Absolute Eosinophils 0.1, Absolute Basophils 0, PUBS MCHC 32.8 L 02/03/17 0040: Troponin I 0.01 02/02/17 1940: Troponin I < 0.01 Microbiology 02/02 2300 UPPER RESP: Surveillance Culture - RECD 02/02 1810 BLOOD: Blood Culture - RES 02/02 1800 BLOOD: Blood Culture - RES Assessment/Plan Assessment: Ms Paige 81 yr old with PMH of osteoporosis, rh arthritis on maintenance prednisone,HT ON amlodipine and flomax,hyperlipidemia on statin,copd not on o2, diverticulosis h/o, hypothyroidism on levothroxine came to hospial with h/o of syncope and fall sustaining mutilple facial fractures admitted to ICU for close monitoring problem list #mutiple facial injuries #HT #HLD #Hypothyroidism #rheumatoid arthritis #osteoarthritis The case was discussed with ENT Dr. Paul. Images were reviewed by her and based on history and objective imaging findings it was determined by the surgical product sales consultant that the patient did not require any inpatient ENT evaluation and should be treated conservatively with cold compresses for pain relief;f/u with Dr. Paul after discharge. She was also seen by cardio Dr Montgomery, who felt the need for telemetry monitoring and further evaluation of her syncope. Plan: cardiology f/u swallow eval passed. on puree and nectar diet. cont-unasyn,levothroxine,statin, prednisone HT- alesha amlo.flomax held. DVT- lovenox held due to her bleeding n the nasal sinuses.On ALPS. CODE-Full code. Disposition- Telemetry. Problem List: 1. Hypothyroidism 2. Hyperlipidemia 3. History of - hypertension 4. S/P FALL 5. Maxillary sinus fracture 6. Lip laceration Pain Ratin Pain Location: around the nose Pain Goal: Pain 4 or less Pain Plan: ofirmev- tylenol Tomorrow's Labs & Rationales: cbc,ekg DVT/Prophylaxis: mechanical
[2017-02-03 14:58] VITALS: BP 130/68
[2017-02-03 22:40] VITALS: BP 142/70
[2017-02-04 06:00] VITALS: BP 148/78
[2017-02-04 08:34] LABS: ABSOLUTE BASOPHIL COUNT 0 /CUMM (0.0-0.2); ABSOLUTE EOSINOPHIL COUNT 0.1 /CUMM (0.0-0.7); ABSOLUTE GRANULOCYTE CT 6.7 /CUMM (1.4-6.5); ABSOLUTE LYMPH COUNT 1.4 /CUMM (1.2-3.4); ABSOLUTE MONOCYTE COUNT 0.6 /CUMM (0.10-0.60); BASOPHIL % 0.4 % (0.0-2.0); EOSINOPHIL % 0.9 % (0-5); GRANULOCYTE % 75.9 % (42.2-75.2); HEMATOCRIT 36.9 % (37-47); MEAN CORPUSCULAR HGB 30.1 PG (27.0-31.0); MEAN CORPUSCULAR HGB CONC 33.2 G/DL (33.0-37.0); MEAN CORPUSCULAR VOLUME 90.7 FL (81.0-99.0); MEAN PLATELET VOLUME 7.5 FL (7.4-10.4); PLATELET COUNT 266 /CUMM (130-400); RBC DISTRIBUTION WIDTH 13.9 % (11.5-14.5); RED BLOOD CELL CT 4.07 /CUMM (4.20-5.40); WHITE BLOOD CELL COUNT 8.8 /CUMM (4.8-10.8)
--- NOTE | 2017-02-04 09:57 | PN- Housestaff ---
SWATI CARNEY,CHRISTEL 02/04/17 0957: Subjective Follow-up For: mutiple facial # Complaints: pain and nasal blockage Tele-Events Since Last Visit: NSR [id number] Subjective: As personally seen the patient at bedside she was sitting comfortably in bed in no acute distress she reports having pain and tenderness all over her face in addition to nasal blockage and mild pain in her left ear Review of Systems Constitutional: Denies: see HPI. EENTM: Reports: ear pain, nasal congestion, nasal pain. Denies: blurred vision, double vision, visual changes, eye pain, eye drainage, ear discharge. Cardiovascular: Denies: no symptoms. Respiratory: Denies: no symptoms. Gastrointestinal: Denies: no symptoms. Skin: Denies: no symptoms. Neurological/Psychological: Denies: no symptoms. Objective Last 24 Hrs of Vital Signs/I&O Vital Signs Date Time Temp Pulse Resp B/P B/P Pulse O2 O2 Flow FiO2 Mean Ox Delivery Rate 02/04 0850 88 148/78 02/04 0810 92 Room Air 02/04 0600 98.7 88 18 148/78 93 Room Air 02/03 2240 98.4 83 18 142/70 93 Room Air 02/03 2154 Room Air 02/03 1458 98.1 84 18 130/68 93 Room Air Intake & Output 02/04 1600 02/04 0800 02/04 0000 Intake Total 600 100 Output Total 950 Balance -350 100 Intake, IV 200 Intake, Oral 400 100 Output, Urine 950 Patient 135 lb Weight Weight Chair scale Measurement Method Physical Exam General Appearance: Alert, Oriented X3, Cooperative, No Acute Distress Skin: No Rashes, No Breakdown, sutured facial and lower lip wounds Skin Temp/Moisture Exam: Warm/Dry HEENT: PERRLA, EOMI, Mucous Membr. moist/pink, sutures and bruises on forhead and lower lip Neck: Supple, No JVD Cardiovascular: Regular Rate, Normal S1, Normal S2, No Murmurs Lungs: Clear to Auscultation, Normal Air Movement Abdomen: Normal Bowel Sounds, Soft, No Tenderness Neurological: Normal Speech, Strength at 5/5 X4 Ext, Normal Tone, Sensation Intact, Cranial Nerves 3-12 NL Extremities: No Cyanosis, No Edema Assessment/Plan Assessment: Ms Paige 81 yr old with PMH of osteoporosis, rh arthritis on maintenance prednisone,HT ON amlodipine and flomax,hyperlipidemia on statin,copd not on o2, diverticulosis h/o, hypothyroidism on levothroxine came to hospial with h/o of syncope and fall sustaining mutilple facial fractures She was also seen by cardio Dr Montgomery, who felt the need for telemetry monitoring and further evaluation of her syncope. # Syncope: -Differential diagnosis includes arrhythmia, dehydration, orthostatic -Admit to telemetry -Neuro checks every 2 hours Orthostatics ACS was ruled out by 3 sets of troponin and EKG Carotid ultrasound to rule out caused atherosclerosis Echocardiogram Monitor for arrhythmia Continue home meds of aspirin and statin cardiology consult (Dr. Montgomery) Neurology consult appreciated Monitor vitals, I's and O's, daily weights #Facial bone fracture, nasal bone fracture, calvarial fracture and bloody nasal discharge The case was discussed with ENT Dr. Paul. Images were reviewed by her and based on history and objective imaging findings it was determined by the security and privacy consultant that the patient did not require any inpatient ENT evaluation and should be treated conservatively with cold compresses for pain relief. Facial lacerations were sutured in the ED Patient received tetanus in 1 dose of Kefzol in the ED We'll defer antibiotics to ENT opinion ENT consultation routine for tomorrow Routine ENT consult was placed for tomorrow, as the patient's family was concerned as she was not seen by ENT doctor during her hospital stay The patient was transferred from ICU after sabilization. pain control as well as Tylenol, Toradol #History of hypertension and hyperlipidemia Continue home dose of amlodipine, aspirin and statin #History of rheumatoid arthritis Continue home dose of prednisone 5 mg #History of hypothyroidism Continue levothyroxin DVT prophylaxis: Lovenox Heart healthy diet DNR/DNI Problem List: 1. Epistaxis 2. Lip laceration 3. Maxillary sinus fracture 4. Hypertension 5. Hyperlipidemia 6. Hypothyroidism 7. S/P FALL Pain Ratin Pain Location: Nose, face, left ear Pain Goal: Pain 4 or less Pain Plan: Tylenol ofermiv Tomorrow's Labs & Rationales: n/a DVT/Prophylaxis: mechanical JANNETH COLON MD 02/04/17 1340: Attending Review Statement Attending Statement Attending Statement: examined this patient, discuss w/resident/PA/LEAD MAINTENANCE TECHNICIAN, agreed w/resident/PA/LEAD MAINTENANCE TECHNICIAN, discussed with family, reviewed EMR data (avail), discussed with nursing, amended to note Attending Assessment/Plan: Patient seen and examined. Resting comfortably. Complains of mild headache. Reports adequate pain control on current pain regimen. She reports difficulty swallowing due to difficulty breathing through her nostrils. She was seen by the speech and swallow pathologist and recommendations are for puree diet with thickened liquids until the swelling and inflammation improve. On examination the periorbital swelling persists but is improved compared to yesterday. There is ecchymosis persist. Sutures are intact with no evidence of infection. Lungs are clear bilaterally. Heart sounds are regular. Abdomen soft and nontender. She has no peripheral edema. She had no events overnight on telemetry monitoring. Problems: 1. Head trauma 2. Syncope 3. COPD 4. Dysphagia Plan: - Continue pain management. Continue cold compresses as recommended by the ENT service. Awaiting inpatient evaluation. - Patient reports that this syncope episode is her fourth. She reports passing out during micturition on at least 2 occasions in the past. So far there is no clear etiology to her last episode. She did appear mildly prerenal however it did not appear significant enough to cause loss of consciousness. She has had no events on telemetry monitoring. Echocardiogram is still pending. She may benefit from an outpatient loop recorder. -Physical therapy and occupational therapy evaluation. -Continue Diet as recommended by the speech and language pathologist. -Discharge planning per recommendations of the physical therapy service and the ENT service.
--- NOTE | 2017-02-04 14:13 | ECHOCARDIOGRAM REPORT ---
COURTNEY GEIGER Age: 81 : 1935 Gender: F Exam Date: 02/04/2017 10:17 Exam Location: [address] Ht (in): 61 Wt (lb): 140 BSA: 1.67 BP: 148 / 78 Ordering Physician: NELA KASPER, Referring Physician: Ziggy Montgomery MD Technologist: Val Uriostegui [facility] Room Number: 176 Indications: AFIB/FLUTTER Rhythm: Sinus Technical Quality: Fair FINDINGS Left Ventricle Normal size left ventricle. Mild concentric left ventricular hypertrophy. No obvious regional wall motion abnormalities. Normal left ventricular ejection fraction visually estimated at >65%. Abnormal relaxation filling pattern of the left ventricle for age (stage 1 diastolic dysfunction). Right Ventricle Normal right ventricular size and function. Right Atrium Normal right atrial size. Left Atrium Normal left atrial size. Mitral Valve Mild mitral annular calcification. Mitral valve mildly thickened. Mild mitral regurgitation. Aortic Valve Trileaflet aortic valve. Diffuse mild thickening of the aortic valve cusps with mildly reduced excursion. Mild aortic stenosis. No aortic regurgitation. Tricuspid Valve Structurally normal tricuspid valve. Mild tricuspid regurgitation. Right ventricular systolic pressure estimated at 32 mmHg. Pulmonic Valve Pulmonic valve not well visualized, grossly normal. Mild pulmonic regurgitation. Pericardium No pericardial effusion. Great Vessels Normal size aortic root. Normal size inferior vena cava. CONCLUSIONS Normal size left ventricle. Mild concentric left ventricular hypertrophy. Normal left ventricular ejection fraction visually estimated at > 65%. Abnormal relaxation filling pattern of the left ventricle for age (stage 1 diastolic dysfunction). Normal right ventricular size and function. Normal atrial size. Mild mitral regurgitation. Mild aortic stenosis. Mild tricuspid regurgitation. Mild pulmonic regurgitation. Ziggy Montgomery M.D. (Electronically Signed) Final Date: 04 February 2017 14:13 MEASUREMENTS (Male / Female) Normal Values 2D ECHO LV Diastolic Diameter PLAX 4.1 cm 4.2 - 5.9 / 3.9 - 5.3 cm LV Systolic Diameter PLAX 2.5 cm 2.1 - 4.0 cm LV Fractional Shortening PLAX 39.0 % 25 - 46 % LV Ejection Fraction 2D Teich 69.9 % IVS Diastolic Thickness 1.3 cm LVPW Diastolic Thickness 1.2 cm LV Relative Wall Thickness 0.6 RV Internal Dim ED PLAX 2.7 cm 1.9 - 3.8 cm LVOT Diameter 1.9 cm Aortic Root Diameter 2.6 cm LA Systolic Diameter LX 3.1 cm 3.0 - 4.0 / 2.7 - 3.8 cm LA Volume 25.0 cm 18 - 58 / 22 - 52 cm Ascending Aorta Diameter 3.0 cm DOPPLER AV Peak Velocity 209.0 cm/s AV Peak Gradient 17.5 mmHg AV Mean Velocity 148.0 cm/s AV Mean Gradient 10.0 mmHg AV Velocity Time Integral 34.3 cm LVOT Peak Velocity 97.8 cm/s LVOT Peak Gradient 3.8 mmHg LVOT Mean Velocity 61.8 cm/s LVOT Mean Gradient 2.0 mmHg LVOT Velocity Time Integral 18.2 cm LVOT Stroke Volume 51.6 cm AV Area Cont Eq vti 1.5 cm AV Area Cont Eq pk 1.3 cm MV Peak Velocity 117.0 cm/s MV Peak Gradient 5.5 mmHg MV Mean Velocity 62.2 cm/s MV Mean Gradient 2.0 mmHg Mitral E Point Velocity 55.0 cm/s Mitral A Point Velocity 113.0 cm/s Mitral E to A Ratio 0.5 MV PHT Velocity 61.1 cm/s MV Deceleration [place] 165.0 cm/s MV Pressure Half Time 111.1 ms MV Area PHT 2.0 cm MV Deceleration Time 481.0 ms TR Peak Velocity 259.0 cm/s TR Peak Gradient 26.8 mmHg Right Atrial Pressure 5.0 mmHg Pulmonary Artery Systolic Pressu 31.8 mmHg Right Ventricular Systolic Press 31.8 mmHg PV Peak Velocity 106.0 cm/s PV Peak Gradient 4.5 mmHg PV Mean Velocity 62.1 cm/s PV Mean Gradient 2.0 mmHg PV Velocity Time Integral 15.2 cm LV E' Lateral Velocity 11.1 cm/s Mitral E to LV E' Lateral Ratio 5.0 LV E' Septal Velocity 6.0 cm/s Mitral E to LV E' Septal Ratio 9.2
[2017-02-04 14:33] VITALS: BP 120/70
--- NOTE | 2017-02-04 14:57 | PN- Cardiology ---
Subjective Subjective: Remains uncomfortable secondary to facial trauma sustained with syncopal episode. On telemetry he had a 6 beat run of NSVT at ~1:04 p.m. Heart rate presently in the 70-80 bpm with occasional supraventricular and ventricular ectopy. Objective Vital Signs and I&Os Vital Signs Date Time Temp Pulse Resp B/P B/P Pulse O2 O2 Flow FiO2 Mean Ox Delivery Rate 02/04 1433 99.1 81 20 120/70 91 02/04 0850 88 148/78 02/04 0810 92 Room Air 02/04 0600 98.7 88 18 148/78 93 Room Air 02/03 2240 98.4 83 18 142/70 93 Room Air 02/03 2154 Room Air 02/03 1458 98.1 84 18 130/68 93 Room Air Intake & Output 02/04 1600 02/04 0800 02/04 0000 02/03 1600 02/03 0800 02/03 0000 Intake Total 600 100 968 295 Output Total 950 200 500 150 Balance -350 100 -200 468 145 Intake, IV 200 848 175 Intake, Oral 400 100 120 120 Output, Urine 950 200 500 150 Patient 135 lb 140 lb Weight Weight Chair scale Reported by Patient Measurement Method Physical Exam: Well-developed, overweight elderly female in no acute distress. Vital signs: See above. Lungs: Clear to auscultation bilaterally. Heart: S1, S2 with grade 1/6 systolic murmur. No gallop, or rub appreciated. Abdomen: Soft, nontender, positive bowel sounds. Extremities: No edema. Current Medications: Current Medications Sig/Maya Start time Last Medication Dose Route Stop Time Status Admin Acetaminophen 325 MG Q6P PRN 02/02 1400 AC PO Acetaminophen 1,000 MG Q6 PRN 02/02 1400 DC 02/04 IV 1054 Albuterol Sulfate 3 ML DAILY 02/03 1000 AC 02/04 INH 0805 Albuterol Sulfate 3 ML Q4P PRN 02/02 2015 AC INH Amlodipine Besylate 5 MG DAILY 02/02 2330 AC 02/04 PO 0850 Ampicillin Sodium/ 1,500 MG Q6 02/02 1800 AC 02/04 Sulbactam Sodium IV 1234 Sodium Chloride 100 ML Atorvastatin Calcium 40 MG 1700 02/03 1700 AC 02/03 PO 1720 Ipratropium [place] 2.5 ML DAILY 02/03 1000 AC 02/04 INH 0809 Ipratropium [place] 2.5 ML Q4 HRS NEEDED PRN 02/02 2015 AC INH Levothyroxine Sodium 0.05 MG DAILY AC 02/03 0700 AC 02/04 PO 0611 Prednisone 5 MG DAILY 02/03 1000 AC 02/04 PO 0851 Results Last 48 Hrs of Labs/Mics: Laboratory Tests 02/04/17 0650: Anion Gap 11, Estimated GFR > 60, BUN/Creatinine Ratio 18.6, CBC w Diff NO MAN DIFF REQ, RBC 4.07 L, MCV 90.7, MCH 30.1, RDW 13.9, MPV 7.5, Gran % 75.9 H, Lymphocytes % 15.9 L, Monocytes % 6.9, Eosinophils % 0.9, Basophils % 0.4, Absolute Granulocytes 6.7 H, Absolute Lymphocytes 1.4, Absolute Monocytes 0.6, Absolute Eosinophils 0.1, Absolute Basophils 0, PUBS MCHC 33.2 02/03/17 0450: Anion Gap 12, Estimated GFR > 60, BUN/Creatinine Ratio 25.0, CBC w Diff NO MAN DIFF REQ, RBC 4.13 L, MCV 91.2, MCH 29.9, RDW 13.9, MPV 7.2 L, Gran % 77.4 H, Lymphocytes % 15.0 L, Monocytes % 6.0, Eosinophils % 1.2, Basophils % 0.4, Absolute Granulocytes 7.0 H, Absolute Lymphocytes 1.4, Absolute Monocytes 0.5, Absolute Eosinophils 0.1, Absolute Basophils 0, PUBS MCHC 32.8 L 02/03/17 0040: Troponin I 0.01 02/02/17 1940: Troponin I < 0.01 Microbiology 02/02 2300 UPPER RESP: Surveillance Culture - COMP Recent Imaging Studies: Echocardiogram (02/04/2017): Normal size left ventricle. Mild concentric left ventricular hypertrophy. Normal left ventricular ejection fraction visually estimated at > 65%. Abnormal relaxation filling pattern of the left ventricle for age (stage 1 diastolic dysfunction). Normal right ventricular size and function. Normal atrial size. Mild mitral regurgitation. Mild aortic stenosis. Mild tricuspid regurgitation. Mild pulmonic regurgitation. Assessment/Plan Assessment/Plan 81 [id number] w/ hx fmr remote tob use, COPD/asthma, pulmonary nodules, HTN, HLD, hypothyroidism, RA, and recurrent syncope who presented following another unwitnessed syncopal episode w/o prodrome after she had been standing for approximately 10 minutes and experiencing low back pain. The etiology for her presentation is presently unclear, however, her BUN/ creatinine suggests the likelihood of some mild intravascular depletion. The run of NSVT is naturally of concern and plan will be to continue her on telemetry. Remains hemodynamically stable. Continue telemetry? Yes
[2017-02-04 22:00] VITALS: BP 134/72
[2017-02-05 06:08] VITALS: BP 130/60
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
[2017-02-05] MEDS ORDERED: AUGMENTIN 875-1 EACH PO (09:13)
[2017-02-05 16:11] VITALS: BP 140/70
--- NOTE | 2017-02-05 16:25 | RADIOLOGY REPORT ---
EXAMINATION: XR HAND, RIGHT CLINICAL INFORMATION: Right hand pain status post fall. Presumptive diagnosis of right thumb fracture. COMPARISON: At the time of the fracture TECHNIQUE: AP, lateral, and oblique views of the right hand. FINDINGS: Diffuse osteopenia. No acute fracture or dislocation. There is advanced osteoarthritic change seen with joint space narrowing, spurring and cystic changes seen across the interphalangeal joints of all digits and the metacarpophalangeal joints of all digits. Associated plantar subluxations are noted at the second through fifth metacarpophalangeal joints and at the third distal interphalangeal joint. Mild soft tissue swelling is also noted at the third DIP joint. The carpus is completely deformed and appears to be fused with loss of the normal carpal rows, loss of the radiocarpal and ulnocarpal joint spaces. Marked cystic changes and hypertrophic changes are noted. No soft tissue calcifications are noted. IMPRESSION: 1. Diffuse osteopenia. No acute fracture. 2. Advanced arthritic changes, most likely related to advanced osteoarthritis. Close clinical correlation is requested.
[2017-02-05 22:00] VITALS: BP 170/82
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
[2017-02-06 07:32] VITALS: BP 142/80
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
[2017-02-06] MEDS ORDERED: AUGMENTIN 875-1 EACH PO (09:58)
--- NOTE | 2017-02-06 10:20 | Discharge Summary ---
See Addendum Visit Information Visit Dates Admission Date: 02/02/17 Discharge Date: 02/06/2017 Hospital Course Course Attending Physician: JANNETH COLON M.D Primary Care Physician: CHAPO CARNEY,ERON Miranda Other Care Providers: dr. solis- charge hand dr. bustos- mixing supervisor Consulting Request: 1 Consulting Specialty: Cardiology Consulting Request: 2 Consulting Specialty: Rheumatology Hospital Course: Patient is 81-year-old female with past medical history of osteoporosis, rheumatoid arthritis on maintenance prednisone therapy, hypertension, hyperlipidemia, COPD not on home oxygen, diverticulosis, hypothyroidism was brought to the ED after an syncopal episode at [facility]. Patient reported that she was in her normal state of health. She had a full breakfast and went to the [facility] [place] to get some paperwork done. She was standing outside in the line for about 10 minutes when she suddenly fell down to the ground hitting her face flat on the sidewalk. As per the witnesses, patient was unconscious for about 1-2 minutes and suffered significant lacerations to her head, face, lips. She regained consciousness after about 2 minutes and found herself surrounded by EMS and the people there. Patient did not recall the exact events but states that she did not have any chest pain, dizziness, palpitations, nausea, vomiting, lightheadedness, or aura prior to the episode. She denied any headache, vision difficulties, palpitations or chest pain at this time other than pain in her lips and difficulty breathing. Patient reports that she had similar episodes of syncope in the past and recalls 2 of the episodes. She follows up with Dr. Bustos as an outpatient. In the ED temperature 97.2, pulse 84, respiration 22, blood pressure 163/82, saturating 95% on room air. Physical exam Gen.: Awake and alert and oriented, in moderate distress Skin: Multiple lacerations noted over her upper and lower lip, bruising noted over the forehead and swelling of the entire face. CVS: S1 and S2 heard, no murmur Chest: Normal breath sounds Extremities: No pedal edema Neurological: Power 5 /5 in all extremities, cranial nerves II-12 intact, reflexes intact and gait instability CBC showed a white count of 12.9, electrolytes normal, troponins negative. CT scan of the cervical spine, head, and maxillofacial showed multiple facial fractures, most prominently in both maxillary sinuses. Suspected right nasal bone fracture. Patient also has central frontal calvarial fracture involving the right frontal sinus. Soft tissue swelling and gas. Diffuse opacification of the paranasal sinuses likely with blood products. No cervical spine findings packs fracture. ER COURSE In the emergency room she was found Alert awake and oriented 3. She was hemodynamically stable. Head CT revealed multiple facial fractures most prominently associated with both maxillary sinuses, suspect right nasal bone fracture. Central frontal calvarial fracture involving the right frontal sinus. Prominent overlying soft tissue swelling and gas. Diffuse opacification of the paranasal sinuses, likely with blood products. No acute intracranial findings. No acute fracture or malalignment of the cervical spine. Patient was seen and evaluated by the ER physician technical staff assistant. 14 sutures were placed over her facial lacerations an additional placed in the inner lower lip. Patient was transferred to the inpatient medical service for further management. Recommendation was made by the hospitalist service for ENT evaluation following which the ER PA did contact the ENT surgeon phone specialist. Case discussed with ED Attending Dr Elliott Rivero who states pateint is medically stable to be admitted to the In-patient service here at [facility]. #1 Syncopal episode: Patient presented to the hospital after syncopal episode and loss of consciousness. Mostly from dehydration and orthostatic hypotension. She was admitted to ICU for close monitoring and transfered to telemetry after 48 hours. She was on continuous telemetry monitoring and neuro checks. Orthostats were positive- on standing 102/54 (sitting 145/78, lying 152/78). 3 sets of troponins and EKG were negative. She remained in sinus rhythm with no EKG abnormalities. Echocardiogram showed Normal size left ventricle. Mild concentric left ventricular hypertrophy. No obvious regional wall motion abnormalities. Normal left ventricular ejection fraction visually estimated at >65%. Abnormal relaxation filling pattern of the left ventricle for age (stage 1 diastolic dysfunction). Carotid ultrasound showed no evidence of stenosis. Cardiology and neurology was consulted. Gentle hydration was provided. Aspirin and statins were continued. She remained hemodynamically stable. Physical therapy on board recommended short- term rehabilitation. #2 Multiple fractures of the facial bones, nasal bone fracture, calvarial fracture, bloody discharge in sinuses s/p syncope Patient was seen and evaluated by the ER physician technical staff assistant. 14 sutures were placed over her facial lacerations an additional placed in the inner lower lip. Patient received tetanus in 1 dose of Kefzol in the ER. she was given 1 dose of Vancomycin and continued iv Unasyn for 5 days. Ice packs application on the face frequently. She was in ICU for 48 hours for close monitoring and then transferred to telemetry floor. Case discussed with ENT Dr. Paul. Images were reviewed by her and based on history and objective imaging findings it was determined by the job service consultant that the patient did not require any inpatient ENT evaluation and should be treated conservatively with cold compresses for pain relief; patient should follow up with Dr. Paul after discharge for further evaluation. She was given Augmentin for 5 more days. #3 history of hypertension and hyperlipidemia -Continued amlodipine, aspirin and statin #4 history of rheumatoid arthritis she had severe rheumatoid arthritis that had been relatively inactive until the recent trauma. Currently she has active synovitis perhaps induced by trauma over her right second and fourth MCP joints. She has not been on a DMARD because of her pulmonary disease and methotrexate pulmonary toxicity. Hand x- ray showed 1. Diffuse osteopenia. No acute fracture. 2. Advanced arthritic changes, most likely related to advanced osteoarthritis. Dr. solis on board. Recommended increasing the prednisone to 5 mg twice a day for next 3 days and then continue 5 mg daily #5 hypothyroidism -Continued levothyroxinE #6. dysphagia Patient complained of dysphagia for which a swallow evaluation was ordered. Patient passed the swallow evaluation for which a diet of nectar/puree was recommended and then upgraded to mechanical soft and thin liquid diet. Dr. Paul is aware of dysphagia. DVT prophylaxis subcutaneous Lovenox Moderate /severe pain pathway Heart healthy diet DNR/DNI Complications: none Allergies: Coded Allergies: hydromorphone (From DILAUDID) (Severe, SYNCOPE 04/21/16) morphine (Severe, SYNCOPE 04/21/16) oxycodone (Severe, UNKNOWN 09/19/15) tramadol (Severe, SYNCOPE 04/21/16) Sulfa (Sulfonamide Antibiotics) (Intermediate, HIVES 09/19/15) latex (Intermediate, BAD RASH 06/15/16) shrimp (HIVES, RASH 09/19/15) Significant Procedures: 14 sutures were placed over her facial lacerations, an additional suture placed in the inner lower lip. Pertinent Lab Results: Cervical spine CT and head CT IMPRESSION: 1. Multiple facial fractures, most prominently associated with both maxillary sinuses. Suspect right nasal bone fracture. 2. Central frontal calvarial fracture involving the right frontal sinus. Prominent overlying soft tissue swelling and gas. 3. Diffuse opacification of the paranasal sinuses, likely with blood products. 4. No acute intracranial findings. No acute fracture or malalignment of the cervical spine. chest ct IMPRESSION: 1. No acute intrathoracic abnormality. Specifically there is no evidence of lung contusion, pneumothorax, pleural effusion or acute rib fracture. 2. Chronic lung changes including changes of bronchiectasis as described above are not significantly change since previous CT of from October 2015. carotid doppler IMPRESSION: Plaque is present in the internal carotid arteries but velocity measurements are normal and there is no evidence to suggest a hemodynamically significant stenosis of greater than 50% diameter reduction. echo CONCLUSIONS Normal size left ventricle. Mild concentric left ventricular hypertrophy. Normal left ventricular ejection fraction visually estimated at > 65%. Abnormal relaxation filling pattern of the left ventricle for age (stage 1 diastolic dysfunction). Normal right ventricular size and function. Normal atrial size. Mild mitral regurgitation. Mild aortic stenosis. Mild tricuspid regurgitation. Mild pulmonic regurgitation. hand xray IMPRESSION: 1. Diffuse osteopenia. No acute fracture. 2. Advanced arthritic changes, most likely related to advanced osteoarthritis. Close clinical correlation is requested. Disposition Summary Disposition Principal Diagnosis: Syncope Facial bone fracture, nasal bone fracture, calvarial fracture Additional Diagnosis: Right hand synovitis Discharge Disposition: SNF Discharge Instructions General Discharge Information Code Status: Full Code Patient's Diet: Mechanical soft and thin liquid Patient's Activity: As tolerated Follow-Up Instructions/Appts: Please follow-up primary care doctor in 1-2 weeks after discharge Please follow with mixing supervisor in 1-2 after discharge Please follow-up with ENT specialist in one week after discharge Continue mechanical soft and thin liquid diet Sutures to be removed on 02/17/2017 Medications at Discharge Discharge Medications: Continue taking these medications: Levothyroxine Sodium (Levothyroxine Sodium) 50 MCG TABLET 1 Tablet ORAL DAILY BEFORE BREAKFAST Comments: Last Taken: 09/07/16 Time: 6 AM Lovastatin (Lovastatin) 40 MG TABLET 1 Tablet ORAL DAILY Instructions: with food Comments: Last Taken: 09/07/16 Time: 5 PM SUBSTITUTION GIVEN WHILE IN HOSPITAL Amlodipine Besylate (Norvasc) 5 MG TABLET 1 Tablet ORAL DAILY Comments: Last Taken: 09/07/16 Time: 11 AM Albuterol Sulfate (Proair Hfa) 8.5 GM HFA.AER.AD 2 Puff Inhale through mouth EVERY 4-6 HOURS NEEDED as needed for COPD Instructions: Reason to Stop at ADM: TR NEBS ORDERS Comments: Last Taken:NOT GIVEN IN HOSPITAL ( NEBULIZER GIVEN WHILE IN HOSPITAL ) Time: Aspirin (Children's Aspirin) 81 MG TAB.CHEW 1 Tablet ORAL DAILY Comments: Last Taken: 09/07/16 Time: 11 AM Fluticasone/Salmeterol (Advair 250-50 Diskus) 1 EACH BLST.W.DEV 1 Puff Inhale through mouth TWICE DAILY Instructions: Reason to Stop at ADM: TR NEBS ORDERS Comments: Last Taken: 09/07/16 Time: 11AM SYMBICORT GIVEN SUBSTITUTION WHILE IN HOSPITAL Prednisone (Prednisone) 5 MG TABLET 1 Tablet ORAL DAILY Instructions: Take 2 tablets each day for 02/07 and 02/08 then take 1 tablet each day Comments: 30MG DOSE GIVEN 09/07/16 Acetaminophen (Tylenol Arthritis) 650 MG TABLET.ER 1 Tablet ORAL TWICE DAILY Comments: Last Taken: 09/07/16 Time: 10AM Tamsulosin HCl (Flomax) 0.4 MG CAP.ER.24H 1 Capsule ORAL DAILY Qty = 30 Comments: NOT GIVEN IN HOSPITAL Ipratropium/Albuterol Sulfate (Iprat-Albut 0.5-3(2.5) MG/3 Ml) 0.5 MG-3 MG (2.5 MG BASE)/3 ML AMPUL.NEB 1 ORAL as needed for SHORTNESS OF BREATH Start taking the following new medications: Amoxicillin/Potassium Clav (Augmentin 875-125 Tablet) 875 MG-125 MG TABLET 1 Tablet ORAL TWICE DAILY Qty = 10 No Refills Copies To: CHAPO CARNEY,ERON Miranda
[2017-02-06 12:00] VITALS: BP 142/80
== END 2017-02-06 13:30 | DRG 86 ==
LOC: ERH 10:50 → 1NO 13:20 → ERHI 13:20 → 1NO 13:20 → CRI 13:20 → CANRESERV 15:30 → ENRESERV 15:30 → ENTRNSPT 16:55 → ENRESERV 17:13 → EDBEDREQ 17:17 → EDTRNSPTSTS 18:44 → EDTRNSPT 18:44 → 1NO 19:53 → CRI 20:24 → CMPTRNSPT 22:19 → 1NO 02-03 12:49 → ENPENDDIS 02-06 10:25 → 1NO 02-06 13:30
PROVIDERS: Internal Medicine Interventional Cardiology; Physician Assistant; Student in an Organized Health Care Education/Training Program; ADMIT Internal Medicine
PROC: 0CQ1XZZ Repair Lower Lip, External Approach (ICD-10-PCS; principal; 2017-02-02)
PROC: 0HQ1XZZ Repair Face Skin, External Approach (ICD-10-PCS; 2017-02-02)
DX: S02.19XA Other fracture of base of skull, initial encounter for closed fracture (principal); I47.1 Supraventricular tachycardia; J44.9 Chronic obstructive pulmonary disease, unspecified; E86.0 Dehydration; S01.111A Laceration without foreign body of right eyelid and periocular area, initial encounter; I10 Essential (primary) hypertension; S01.419A Laceration without foreign body of unspecified cheek and temporomandibular area, initial encounter; I95.1 Orthostatic hypotension; S02.40DA Maxillary fracture, left side, initial encounter for closed fracture; S02.40CA Maxillary fracture, right side, initial encounter for closed fracture; S02.2XXA Fracture of nasal bones, initial encounter for closed fracture; M06.9 Rheumatoid arthritis, unspecified; S01.112A Laceration without foreign body of left eyelid and periocular area, initial encounter; W18.30XA Fall on same level, unspecified, initial encounter; Y93.89 Activity, other specified; Y92.480 Sidewalk as the place of occurrence of the external cause; S01.511A Laceration without foreign body of lip, initial encounter; R04.0 Epistaxis; E03.9 Hypothyroidism, unspecified; E78.5 Hyperlipidemia, unspecified; M19.90 Unspecified osteoarthritis, unspecified site; M65.9 Synovitis and tenosynovitis, unspecified; Z87.891 Personal history of nicotine dependence
CPT/HCPCS: 1NP; CCU; 73130-RT; 82436; 87040; 90714; 93005; 93010; 93306; 97110-GO; 97161-GP; 97530-GO; J0131; J0690; J1650; J1885; J3370; J7040; J7042; J7512

== ENCOUNTER 2017-08-29 08:04 | Inpatient (IN) | payer OTHER, MEDICARE ==
[~2017-08-29] VITALS: Ht 157.5 cm; Wt 61.2 kg
[~2017-08-29 08:04] MED LIST changes: +AZITHROMYCIN250 M1 PO; +GUAIFENESIN ER600 MG PO; +MIDODRINE HCL2.5 M1 PO
--- NOTE | 2017-08-29 09:08 | ED MVC/FALL/TRAUMA COMPLAINT ---
History of Present Illness General Chief Complaint: Fall Stated Complaint: FALL THIS AM, LOWER BACK PAIN Source: patient, family, EMS Exam Limitations: no limitations Vital Signs & Intake/Output Vital Signs & Intake/Output Vital Signs Date Time Temp Pulse Resp B/P B/P Pulse O2 O2 Flow FiO2 Mean Ox Delivery Rate 08/30 0904 90 Room Air Room Air 08/30 0807 72 140/70 08/30 0807 72 140/70 08/30 0753 Room Air 08/30 0737 98.8 08/30 0600 98.9 75 18 112/74 92 Room Air 08/29 2227 100.1 103 18 120/50 92 08/29 2159 Room Air 08/29 2130 98.8 102 20 130/80 08/29 1815 130/80 08/29 1702 98.8 102 20 130/80 91 Room Air 08/29 1526 Room Air 08/29 1504 98.7 84 20 157/98 100 Room Air 08/29 1247 97.0 65 22 154/70 96 Room Air 08/29 1155 93 ED Intake and Output 08/30 0000 08/29 1200 Intake Total 300 1000 Output Total Balance 300 1000 Intake, IV 300 1000 Intake, Oral 0 Patient 135 lb 135 lb Weight Weight Reported by Patient Reported by Patient Measurement Method Allergies Coded Allergies: hydromorphone (From DILAUDID) (Severe, SYNCOPE 04/21/16) morphine (Severe, SYNCOPE 04/21/16) oxycodone (Severe, UNKNOWN 09/19/15) tramadol (Severe, SYNCOPE 04/21/16) Sulfa (Sulfonamide Antibiotics) (Intermediate, HIVES 09/19/15) latex (Intermediate, BAD RASH 06/15/16) shrimp (HIVES, RASH 09/19/15) Reconcile Medications Acetaminophen (Tylenol Arthritis) 650 MG TABLET.ER 1 TAB PO BID PAIN ( Reported) Albuterol Sulfate (Proair Hfa) 8.5 GM HFA.AER.AD 2 PUF INH Q4-6 PRN PRN COPD (Reported) Reason to Stop at ADM: TRC NEBS ORDERS Amlodipine Besylate (Norvasc) 5 MG TABLET 1 TAB PO DAILY HYPERTENSION ( Reported) Aspirin (Children's Aspirin) 81 MG TAB.CHEW 1 TAB PO DAILY HEART (Reported) Cholecalciferol (Vitamin D3) (Vitamin D3) 2,000 UNIT TABLET 1 TAB PO DAILY VITAMIN SUPPORT (Reported) Digoxin 125 MCG TABLET 1 TAB PO DAILY HEART (Reported) Diltiazem HCl 30 MG TABLET 1 TAB PO BID HEART (Reported) Fluticasone/Salmeterol (Advair 250-50 Diskus) 1 EACH BLST.W.DEV 1 PUF INH BID COPD (Reported) Reason to Stop at ADM: C NEBS ORDERS Ipratropium/Albuterol Sulfate (Iprat-Albut 0.5-3(2.5) MG/3 Ml) 0.5 MG-3 MG (2.5 MG BASE)/3 ML AMPUL.NEB 1 INH PO DAILY PRN SHORTNESS OF BREATH (Reported) Levothyroxine Sodium 50 MCG TABLET 1 TAB PO DAILY AC THYROID (Reported) Lovastatin 40 MG TABLET 1 TAB PO DAILY HYPERCHOLESTEROL (Reported) with food Midodrine HCl 2.5 MG TABLET 1 TAB PO QAM HEART HEALTH (Reported) Prednisone 5 MG TABLET 1 TAB PO DAILY COPD (Reported) Triage Note: 82 YO FEAMEL BIBA FROM HOME S/P FALL AROUND 3AM THIS MORNING. STATES SHE WOKE UP TO USE THE BATHROOM AND FELL IN THE BATRHOOM, STATES SHE LAYED ON THE FLOOR BETWEEN THE TOILET AND THE SINK SINCE THE FALL. STATES SHE CRAWLED TO THE PHONE. NOTED WITH BRUSING TO L FOOT. C/O SLIGHT PAIN TO BACK OF NECK AND LOWER BACK. PA AT BEDSIDE FOR EVAL. PT CHRISTINE DIZZINESS/LIGHTHEADEDNESS PRIOR TO THE FALL. Triage Nurses Notes Reviewed? yes Onset: Abrupt Duration: hour(s): (5), constant, continues in ED Timing: single episode today Severity: moderate, severe Severity Numbers: 6 Injuries/Fall Location: neck, back, lower extremity (LEFT FOOT ) Method of Injury: fall Loss of Consciousness: no loss of consciousness No Modifying Factors: none Associated Symptoms: neck pain, trouble walking LMP (ages 10-50): post menopausal : No Patient currently breastfeeds: No HPI: 82 YEAR OLD FEMALE WITH PMH OF COPD, HTN, HLD, CHRONIC BACK PAIN, SCIATICA BIBA AFTER A FALL. SHE REPROTS SHE GOT UP LAST NIGHT TO USE THE BATHROOM AND WHEN SHE WAS WALKING BACK SHE SUDDENDLY HAD SEVERE PAIN IN THE RT FOOT AND LEG CAUSING HER FOOT TO GIVE OUT AND SHE FALL. SHE RPEORTS SHE LANDED ON HER LOWER BACK AND TWISTED HER LEFT FOOT. NO HEAD STRIKE BUT SHE IS REPROTING NECK PAIN AND LOW BACK PAIN. SHE HAS NOT BEEN ABLE TO WALK SINCE THE FALL. NO DIZZYNESS, LIGHTHEADED, CHEST PAIN OR SOB BEFORE THE FALL. NO LOC. SHE REMAINED ON ESVIN GROUND FOR ABOUT 8 HOURS BEFORE SHE WAS ABLE TO CRAWL TO A PHONE. NO BLOOD THINNERS. NO N/V DIARRHEA, NUMBNESS/TINGLING, BOWEL/BLADDER DYSFUNCTION. SHE RATES THE PAIN A 7 OUT OF 10. (Ranjan Cardona) Past History Travel History Traveled to [place] past 21 day No Medical History Any Pertinent Medical History? 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 FATHER (heart failure from severe asthma). . Hx Contributory? No (Ranjan Cardona) Review of Systems Review of Systems Constitutional: Reports: no symptoms. Eyes: Reports: no symptoms. Ears, Nose, Throat, Mouth: Reports: no symptoms. Respiratory: Reports: no symptoms. Cardiovascular: Reports: no symptoms. Gastrointestinal/Abdominal: Reports: no symptoms. Genitourinary: Reports: no symptoms. Musculoskeletal: Reports: see HPI, back pain, joint pain, joint swelling, muscle pain, muscle stiffness, neck pain. Skin: Reports: no symptoms. Neurological/Psychological: Reports: no symptoms. All Other Systems: Reviewed and Negative (Ranjan Cardona) Physical Exam Physical Exam General Appearance: well developed/nourished, no apparent distress, alert, awake Head: atraumatic, normal appearance Eyes: Bilateral: normal appearance, PERRL, EOMI, normal inspection. Ears, Nose, Throat, Mouth: hearing grossly normal, moist mucous membrane Neck: normal inspection, supple, full range of motion, paraspinous muscle tender , no midline tenderness, NO JVD Respiratory: chest non-tender, no respiratory distress, crackles (BILATERAL BASES ) Cardiovascular: regular rate/rhythm, normal peripheral pulses Peripheral Pulses: 2+ radial (R), 2+ radial (L) Gastrointestinal: normal bowel sounds, soft, non-tender, no organomegaly Back: normal inspection, normal range of motion, THORACIC AND LUMBAR PARASPINOUS MUSCLE cENTER PALPATION BILATERALLY. tHERE IS A LARGE ABRASION TO THE RIGHT POSTERIOR RIBS. nO CREPITUS NO STEP-OFFS OR DEFORMITIES Extremities: THERE IS SWELLING AND BRUISING TO THE DORSUM OF THE LEFT FOOT. nEUROVASCULAR SUPPLY IS INTACT. FULL RANGE MOTION IS INTACT.PATIENT IS MOVING EXTREMITIES EQUALLY. nO OTHER JOINT SWELLING EXTREMITIES Neurologic/Psych: no motor/sensory deficits, awake, alert, oriented x 3 Skin: intact, normal color, warm/dry Core Measures ACS in differential dx? No CVA/TIA Diagnosis No Sepsis Present: No Sepsis Focused Exam Completed? Yes (Ranjan Cardona) ED Sepsis Exam Date of Focused Sepsis Exam: 08/29/17 Time of Focused Sepsis Exam: 1231 Sepsis Cardiac Exam: Tachycardia Sepsis Resp Exam: Rales (BASES) Sepsis Cap Refill Exam: <2 Sec Sepsis Peripheral Pulse Exam: Normal Sepsis Peripheral Pulse Location: Radial Sepsis Skin Color Exam: Normal for Ethnicity Skin Temp/Moisture Exam: Warm/Dry (Ranjan Cardona) Progress Differential Diagnosis: C/T/L spine injury, ext injury, ICH, pelvis injury, FRACTURE, CONTUSION, SPRAIN, DEHYDRATION, SEPSIS Plan of Care: Orders Procedure Date/time Status CREATINE PHOSPHOKINASE 08/31 0600 Active CBC WITHOUT DIFFERENTIAL 08/31 0600 Active BASIC ELECTROLYTES PLUS BUN&CR 08/31 0600 Active DIGOXIN 08/30 0653 Active CREATINE PHOSPHOKINASE 08/30 0600 Active CBC WITHOUT DIFFERENTIAL 08/30 0600 Active BASIC ELECTROLYTES PLUS BUN&CR 08/30 0600 Active Therapeutic Activities 08/30 UNK Complete PT EVAL LOW COMPLEX 20 MIN 08/30 UNK Complete Lab Add-on Test 08/30 UNK Active Regular Diet 08/29 D Active THERAPIST ORDERS 08/29 2204 Complete RT: Evaluation 02/14 2156 Active Vital Signs 08/29 161 Active Teach/Educate 08/29 161 Active Pain Treatment and Response 08/29 161 Active Nutritional Intake, Monitor 08/29 161 Active Isolation 08/29 1617 Active Intake & Output 08/29 1617 Active Patient Care Conference 08/29 1617 Active Activity/Ambulation 08/29 1617 Active PT Evaluate & Treat 08/29 1444 Active Pathway - chart 08/29 1444 Active House Staff 08/29 1444 Active Patient Data 08/29 1444 Active CASE MANAGEMENT CONSULT 08/29 1444 Active Code Status 08/29 1444 Active LACTIC ACID 08/29 1430 Complete ED Holding Orders 08/29 1234 Active Admit to inpatient 08/29 1234 Active Vital Signs 08/29 1234 Active Patient Data 08/29 1229 Active Durable Medical Equipment 08/29 1217 Active Intake & Output 08/29 0813 Active INCENTIVE SPIROMETRY TRX CHG 08/29 UNK Complete AEROSOL CHG 08/29 UNK Complete TRC EVALUATION (GEN) 08/29 UNK Complete AEROSOL (GEN) 08/29 UNK Complete VTE Mechanical Prophylaxis 08/29 UNK Active Vital Signs 08/29 UNK Complete MISTAKE 08/29 UNK Active Current Medications Sig/Maya Start time Last Medication Dose Stop Time Status Admin Azithromycin 500 MG DAILY 08/30 1107 UNV (Zithromax) Dextrose/Water 250 ML (D5W) Ceftriaxone Sodium 1,000 MG DAILY 08/30 1107 AC (Rocephin) Albuterol Sulfate 3 ML BID 08/30 1000 AC 08/30 (Proventil) 0901 Ipratropium [place] 2.5 ML BID 08/30 1000 AC 08/30 (Atrovent) 0901 Midodrine 2.5 MG QAM 08/30 1000 AC 08/30 (Pro-Amatine) 0806 Fluticasone 2 PUF BID 08/29 2200 AC 08/30 Propionate 0807 (Flovent) Atorvastatin Calcium 40 MG 1700 08/29 1700 AC 08/29 (Lipitor) 1817 Digoxin 0.125 MG 1700 08/29 1700 AC 08/29 (Lanoxin) 1817 Albuterol Sulfate 3 ML Q6P PRN 08/29 1500 AC (Proventil) Levothyroxine Sodium 0.05 MG DAILY AC 08/29 1450 AC 08/30 (Synthroid) 0609 Prednisone 5 MG DAILY 08/29 1450 AC 08/30 0806 Diltiazem HCl 30 MG BID 08/29 1449 AC 08/30 (Cardizem) 0807 Amlodipine Besylate 5 MG DAILY 08/29 1448 AC 08/30 (Norvasc) 0807 Aspirin 81 MG DAILY 08/29 1448 AC 08/30 (Aspirin) 0807 Cholecalciferol 1,000 IU DAILY 08/29 1448 AC 08/30 (Vitamin D) 0806 Acetaminophen 650 MG Q6P PRN 08/29 1445 AC (Tylenol) Acetaminophen 1,000 MG Q6P PRN 08/29 1445 AC (Ofirmev) Enoxaparin Sodium 40 MG DAILY 08/29 1443 AC (Lovenox) Laboratory Tests 08/30/17 0915: CBC w Diff Pending, RBC 4.11 L, MCV 91.2, MCH 30.1, MCHC 33.0, RDW 14.4, MPV 8.3, Gran % 77.4 H, Lymphocytes % 15.7 L, Monocytes % 3.9, Eosinophils % 1.7, Basophils % 1.3, Absolute Granulocytes 6.3, Absolute Lymphocytes 1.3, Absolute Monocytes 0.3, Absolute Eosinophils 0.1, Absolute Basophils 0.1 08/30/17 0653: Anion Gap 9, Estimated GFR > 60, BUN/Creatinine Ratio 18.6, Creatine Kinase 798 H, Digoxin Pending 08/29/17 1530: Lactic Acid 1.8 08/29/17 1247: Urine Color YEL, Urine Clarity HAZY H, Urine pH 6.5, Ur Specific [place] 1.015, Urine Protein TRACE H, Urine Ketones NEG, Urine Nitrite NEG, Urine Bilirubin NEG, Urine Urobilinogen 0.2, Ur Leukocyte Esterase MOD H, Ur Microscopic SEDIMENT EXAMINED, Urine RBC 1-3, Urine WBC 10-15 H, Urine Bacteria MANY H, Urine Hemoglobin SMALL H, Urine Glucose NEG Patient seen and evaluated. She has a fracture/subluxation in the left foot related to a fall. She was on the ground for greater than 6 hours. Her CK is mildly elevated. She also has evidence of pneumonia with lactic acidosis and leukocytosis. Patient is not hospitalized recently. We'll treat her with ceftriaxone and Zithromax. Tylenol for pain. DuoNeb ordered. Patient has been satting in the low 90s on room air at rest. Patient was placed into a boot. Spoke with Dr. Bello he is aware and will consult on the patient regarding the fracture. She will require admission for IV antibiotics, IV fluids, serial labs, DuoNeb's serial chest x-rays, podiatry, physical therapy and case management for possible placement. Case discussed with Dr. Pena she agrees. Diagnostic Imaging: Viewed by Me: Radiology Read. Discussed w/RAD: Radiology Read. Radiology Impression: PATIENT: COURTNEY GEIGER PRESENT AGE: 82 PATIENT ACCOUNT NO: [id number] : 35 LOCATION: [facility] ORDERING PHYSICIAN: Ranjan BECK SERVICE DATE: 08/29/17 EXAM TYPE: RAD - XRY- FOOT COMPLETE, LEFT EXAMINATION: XR FOOT, LEFT CLINICAL INFORMATION: Fall. Pain. Swelling. Bruising of the dorsum of foot. Assess for fracture. COMPARISON: None. TECHNIQUE: AP, lateral, and oblique views of the left foot were obtained. FINDINGS: There is severe diffuse osteopenia. There are erosive changes at the distal metatarsals diffusely. There is subluxation of the first, second and fifth MP joints. There is also a moderate hallux valgus. There is narrowing of multiple IP joints throughout the foot, consistent with degenerative changes. There is a lucency through the base of the proximal phalanx of the fifth toe, which may be consistent with an age indeterminate nondisplaced fracture. There is mild soft tissue swelling over the dorsum of the foot in the region of the distal metatarsals. There is extensive vascular calcification. There are no joint effusions. IMPRESSION: 1. There are extensive chronic osseous changes with severe diffuse osteopenia. 2. There are subluxations at the MP joints with erosive changes of the distal metatarsals. 3. There is an equivocal fracture through the base of the proximal phalanx of the fifth toe. 4. There is soft tissue swelling over the dorsum of the foot. DICTATED BY: Jase Gr MD DATE/ TIME DICTATED:08/29/17908 CEMETERY VAULT INSTALLER:ALINE DATE/TIME TRANSCRIBED: 08/29/17908 CONFIDENTIAL, DO NOT COPY WITHOUT APPROPRIATE AUTHORIZATION., PATIENT: COURTNEY GEIGER PRESENT AGE: 82 PATIENT ACCOUNT NO: [id number] : 35 LOCATION: [facility] ORDERING PHYSICIAN: Ranjan BECK SERVICE DATE: 08/29/17 EXAM TYPE: CAT - CT CERV SPINE WO IV CONTRAST ; CT HEAD WO IV CONTRAST EXAMINATION: CT HEAD WITHOUT CONTRAST CT CERVICAL SPINE WITHOUT CONTRAST CLINICAL INFORMATION: Fall. Neck pain. Trauma. COMPARISON: CT scans 02/02/2017. TECHNIQUE: Multidetector CT imaging of the head and cervical spine was performed without the use of intravenous contrast. Coronal and sagittal reformatted images were generated at the technologist workstation. DLP: 917.71 mGy-cm. FINDINGS: CT head: There is no evidence of acute intracranial hemorrhage or territorial infarction. No abnormal mass-effect or midline shift is seen. Lundy to white matter differentiation is well preserved. No extra-axial fluid collections are identified. The study redemonstrates commensurate prominence of the ventricles and sulci consistent with [id number]-[id number] diffuse volume loss. There are extensive patchy areas of low attenuation in the periventricular and subcortical white matter, consistent with chronic microvascular ischemic changes. These findings appear similar compared to the prior study. There have been bilateral lens extractions. There are no acute osseous findings. There is hyperostosis from Rodney interna. There are degenerative changes of the right greater than left temporomandibular joints. There is slight irregularity of the carbajal of the maxillary sinuses, consistent with sequelae of prior trauma. There are no large scalp contusions or hematomas. There are atheromatous calcifications of the cavernous internal carotid and left vertebral arteries. There is trace fluid at the bilateral mastoid tips, unchanged. The visualized paranasal sinuses are well-aerated. There is a large left middle turbinate elvia bullosa, unchanged. The fluid levels in the paranasal sinuses have resolved. CT cervical spine: The study redemonstrates the sequelae of the multilevel ACDF between C3 and C7. There are screws in the C3, C6 and C7 vertebral bodies. The hardware appears intact. The study redemonstrates the degenerative anterolistheses of C3 and C4 and C7 on T1. Intervertebral disc devices are seen between C3-C4 and C6-C7. There is poor osseous integration of the graft at C4-C5, unchanged compared to the prior study. The other intervertebral disc device appears to be well incorporated. There is severe narrowing of intervertebral disc height at C7-T1, and there are degenerative endplate contour changes. There are no acute fractures. The lateral masses of C1 and C2 are normally aligned and the dens is intact. There are degenerative changes of the C1-C2 articulations bilaterally. The atlantooccipital joints are normally aligned. There is multilevel facet arthropathy, most severe at C3-C4 with partial fusion of the facets. There are extensive atheromatous calcifications of the carotid bifurcations and great vessels of the neck. There are surgical clips in the region of the left lobe of the thyroid gland. The visualized lung apices are unremarkable. IMPRESSION: 1. There are no acute intracranial findings; there are no bleeds or territorial infarcts. 2. No acute calvarial maxillofacial fractures are demonstrated. There are sequelae of prior trauma. The fluid within the paranasal sinuses has resolved. There are no acute fractures, and there are no large scalp contusions or hematomas. 3. There is mild to moderate diffuse volume loss and there are extensive chronic microvascular ischemic changes. 4. There are no acute fractures or subluxations in the cervical spine. There are sequelae of prior multilevel ACDF. DICTATED BY: Jase Gr MD DATE/TIME DICTATED:08/29/17855 CEMETERY VAULT INSTALLER:ALINE DATE/TIME TRANSCRIBED:08/29/17855 CONFIDENTIAL, DO NOT COPY WITHOUT APPROPRIATE AUTHORIZATION., PATIENT: COURTNEY GEIGER PRESENT AGE: 82 PATIENT ACCOUNT NO: [id number] : 35 LOCATION: [facility] ORDERING PHYSICIAN: Ranjan BECK SERVICE DATE: 08/29/17 EXAM TYPE: CAT - CT ABD & PELVIS W/O IV CONTRAS; CT CHEST WO IV CONTRAST EXAMINATION: CT CHEST WITHOUT CONTRAST CT ABDOMEN AND PELVIS WITHOUT CONTRAST CLINICAL INFORMATION: Status post fall. Posterior thoracic back pain and right posterior rib pain. COMPARISON: CT abdomen and pelvis of 09/03/2016 and multiple previous abdomen and pelvic CTs dated back to 07/01/2012. CT chest of 02/02/2017 and multiple previous chest CTs dated back to 11/06/2009 TECHNIQUE: Multidetector volumetric CT imaging of the chest, abdomen and pelvis is acquired without intravenous contrast oral contrast administration. Sagittal and coronal reformatted images were obtained on the technologist's workstation. DLP: 364.94 mGy-cm FINDINGS: CHEST: LUNGS AND PLEURA: There is no evidence of pleural effusions or pneumothorax. Diffuse bronchiectatic changes with greatest in the right middle lobe, lingula and bilateral lower lobes, are again noted with associated bronchial wall thickening. Scattered tiny pulmonary nodules with tree -in-bud appearance are again noted, again greater in the bilateral lower lobes and right middle lobe and lingula. Compared to the last chest CT of 02/02/2017 the consolidative changes associated with the right middle lobe bronchiectasis have likely slightly improved. The bibasilar opacities posteriorly are likely not significantly changed compared to previous CT of 02/02/2017, and when compared to multiple other previous CTs, there is waxing and waning appearance of these opacities suggesting combination of scarring and chronic atelectatic opacities. Superimposed acute infection would be difficult to exclude. A nodular density in the left lung base in the lower lobe anteriorly adjacent to the major fissure measuring 0.5 x 0.8 cm (series 4 image 332) is not clearly seen on the previous CTs and appears to represent an impacted bronchus. No evidence of lung contusion. LOWER NECK AND MEDIASTINUM: The thyroid gland is atrophic. No focal thyroid nodule is seen. No evidence of mediastinal fluid collection or hematoma. No pericardial effusion. Cardiac size is normal. Enuzcnaj-nw-ymdfxw coronary calcifications. No pericardial effusion. Trachea and central bronchi are well patent. The upper esophagus is mildly dilated and contains low-density material. CHEST WALL SOFT TISSUES AND AXILLA: A cardiac monitoring device is noted implanted in the subcutaneous tissue of the left anterior mid chest, in the para -midline location. The chest wall soft tissues are otherwise unremarkable. No axillary adenopathy. ABDOMEN AND PELVIS: LIVER, GALLBLADDER, AND BILIARY TREE: The liver is normal in size, shape, and attenuation. No focal hepatic lesion or biliary ductal dilatation is present. The gallbladder is surgically absent. PANCREAS: Stable appearance of pancreas with mild atrophy. SPLEEN: Unremarkable. ADRENAL GLANDS: Unremarkable. KIDNEYS AND URETERS: The kidneys are normal in size, shape and attenuation. Interval removal of a failed right ureteric stent. At least 5 nonobstructing right renal calculi are noted scattered throughout the kidney with the largest one in the upper to mid kidney measuring 0.6 cm in maximum dimension. No hydroureteronephrosis. No evidence of left renal calculi. No perinephric stranding. BLADDER: Unremarkable. GASTROINTESTINAL TRACT: [id number] diffuse colonic diverticulosis without acute diverticulitis. Colocolic anastomosis is noted in the left pelvis. An appendix is not clearly identified. However, there are no inflammatory changes in the expected location of the appendix. Tiny diverticula of the distal ileal loops are also noted. The small bowel and stomach are not dilated. PERITONEAL CAVITY: No evidence of free intraperitoneal air or fluid. No inflammatory changes or nodularities seen in the omentum and mesentery. ABDOMINAL WALL: Stable small umbilical hernia containing fat. No definite evidence of soft tissue injury of the abdomen and pelvic wall. LYMPH NODES: No pathologically enlarged lymph nodes are noted. VASCULAR: Infrarenal abdominal aortic aneurysm is noted, approximately 3 cm below the origin of the renal arteries extending up to the aortic bifurcation measuring 5.4 cm in length and 4.2 x 4 cm in maximum AP and transverse dimensions, previously 3.7 x 3.7 cm in AP and transverse dimension ( 09/03/2016, 2.7 x 2.9 cm (07/01/2012). No evidence of periaortic fat stranding or hematoma. Moderate calcific atherosclerosis of the aortoiliac vessels. The iliac arteries are normal in caliber. PELVIC VISCERA: The uterus is surgically absent. No adnexal mass. OSSEOUS STRUCTURES: There is no evidence of acute osseous abnormality in the chest, abdomen and pelvis. Healed fractures of the right 6th, 7th, and 9th ribs are again noted. Diffuse osseous demineralization. Surgical hardware is again noted in the left proximal humerus transfixing the fracture. Chronic fracture deformity of the left-sided pubic rami in the vicinity of the pubic symphysis are again noted. No suspicious osseous lesion. Mild degenerative changes in the spine. Lower anterior cervical fusion hardware is partially seen. The alignment of the thoracolumbar spine is maintained. The vertebral body heights are maintained. The posterior elements are intact and in normal alignment. Degenerative disc disease is noted at L4-L5 with vacuum disc phenomenon. IMPRESSION: 1. No evidence of acute traumatic injury in the chest, abdomen and pelvis. Specifically there is no evidence of acute fracture or subluxation in the thoracolumbar spine or acute right rib fractures. 2. Evidence of chronic airway infection/inflammatory disease with changes of bronchiectasis and bronchial wall thickening as detailed above. Superimposed acute infectious/ inflammatory process would be difficult to exclude. Recommend clinical correlation. A new 0.5 x 0.8 cm nodular opacity in the left lung base in the lower lobe anteriorly, most likely represents an impacted bronchus. Consider follow-up chest CT in 6 months. 3. Progressive interval increase in the size of the infrarenal abdominal aortic aneurysm currently measuring 4.2 x 4.0 cm, previously 3.7 x 3.7 cm (09/03/2016), 2.7 x 2.9 cm (). 4. Diffuse colonic diverticulosis without acute diverticulitis. 5. Nonobstructing multiple right renal calculi. 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 Initial ED EKG: normal sinus rhythm, LEFT AXIS DEVIATION (Ranjan Cardona) Departure Departure Disposition: STILL A PATIENT Condition: Stable Clinical Impression Primary Impression: Pneumonia Qualifiers: Pneumonia type: due to unspecified organism Laterality: unspecified laterality Lung location: unspecified part of lung Qualified Code: J18.9 - Pneumonia, unspecified organism Secondary Impressions: Foot fracture, left Qualifiers: Encounter type: initial encounter Fracture type: closed Qualified Code: S92.902A - Unspecified fracture of left foot, initial encounter for closed fracture Referrals: Rashel CARNEY,Bereket Miranda (PCP/Family) Departure Forms: Customer Survey General Discharge Information Admission Note Spoke With: Dayne CARNEY,Jayme Documentation of Exam: Documentation of any treatments & extenuating circumstances including Concerns Regarding Discharge (functional status, medication knowledge or non-compliance, living conditions, etc.) that warrant an admission rather than observation: [IV antibiotics, IV fluids, serial labs, serial chest x-rays, podiatry consult, IV pain meds, physical therapy, case management] (Ranjan Cardona) PA/SCHOOL BUS OPERATOR Co-Sign Statement Statement: ED Attending supervision documentation- [X] I saw and evaluated the patient. I have also reviewed all the pertinent lab results and diagnostic results. I agree with the findings and the plan of care as documented in the PA's/SCHOOL BUS OPERATOR's documentation. [X] I have reviewed the ED Record and agree with the PA's/SCHOOL BUS OPERATOR's documentation. [] Additions or exceptions (if any) to the PAs/SCHOOL BUS OPERATOR's note and plan are summarized below: [] (Jean CARNEY,Karin)
[2017-08-29 09:14] LABS: ABSOLUTE BASOPHIL COUNT 0.2 /CUMM (0.0-0.2); ABSOLUTE EOSINOPHIL COUNT 0.1 /CUMM (0.0-0.7); ABSOLUTE GRANULOCYTE CT 10.9 /CUMM (1.4-6.5); ABSOLUTE LYMPH COUNT 1.1 /CUMM (1.2-3.4); BASOPHIL % 1.3 % (0.0-2.0); EOSINOPHIL % 0.5 % (0-5); GRANULOCYTE % 82.4 % (42.2-75.2); HEMATOCRIT 40.8 % (37-47); MEAN CORPUSCULAR HGB 30.1 PG (27.0-31.0); MEAN CORPUSCULAR HGB CONC 32.9 G/DL (33.0-37.0); MEAN CORPUSCULAR VOLUME 91.4 FL (81.0-99.0); MEAN PLATELET VOLUME 7.7 FL (7.4-10.4); PLATELET COUNT 237 /CUMM (130-400); RBC DISTRIBUTION WIDTH 14.5 % (11.5-14.5); RED BLOOD CELL CT 4.46 /CUMM (4.20-5.40); WHITE BLOOD CELL COUNT 13.2 /CUMM (4.8-10.8)
--- NOTE | 2017-08-29 09:59 | CT SCAN REPORT ---
EXAMINATION: CT HEAD WITHOUT CONTRAST CT CERVICAL SPINE WITHOUT CONTRAST CLINICAL INFORMATION: Fall. Neck pain. Trauma. COMPARISON: CT scans 02/02/2017. TECHNIQUE: Multidetector CT imaging of the head and cervical spine was performed without the use of intravenous contrast. Coronal and sagittal reformatted images were generated at the technologist workstation. DLP: 917.71 mGy-cm. FINDINGS: CT head: There is no evidence of acute intracranial hemorrhage or territorial infarction. No abnormal mass-effect or midline shift is seen. Lundy to white matter differentiation is well preserved. No extra-axial fluid collections are identified. The study redemonstrates commensurate prominence of the ventricles and sulci consistent with jhbv-rm-kwfwgjeu diffuse volume loss. There are extensive patchy areas of low attenuation in the periventricular and subcortical white matter, consistent with chronic microvascular ischemic changes. These findings appear similar compared to the prior study. There have been bilateral lens extractions. There are no acute osseous findings. There is hyperostosis from Rodney interna. There are degenerative changes of the right greater than left temporomandibular joints. There is slight irregularity of the carbajal of the maxillary sinuses, consistent with sequelae of prior trauma. There are no large scalp contusions or hematomas. There are atheromatous calcifications of the cavernous internal carotid and left vertebral arteries. There is trace fluid at the bilateral mastoid tips, unchanged. The visualized paranasal sinuses are well-aerated. There is a large left middle turbinate elvia bullosa, unchanged. The fluid levels in the paranasal sinuses have resolved. CT cervical spine: The study redemonstrates the sequelae of the multilevel ACDF between C3 and C7. There are screws in the C3, C6 and C7 vertebral bodies. The hardware appears intact. The study redemonstrates the degenerative anterolistheses of C3 and C4 and C7 on T1. Intervertebral disc devices are seen between C3-C4 and C6-C7. There is poor osseous integration of the graft at C4-C5, unchanged compared to the prior study. The other intervertebral disc device appears to be well incorporated. There is severe narrowing of intervertebral disc height at C7-T1, and there are degenerative endplate contour changes. There are no acute fractures. The lateral masses of C1 and C2 are normally aligned and the dens is intact. There are degenerative changes of the C1-C2 articulations bilaterally. The atlantooccipital joints are normally aligned. There is multilevel facet arthropathy, most severe at C3-C4 with partial fusion of the facets. There are extensive atheromatous calcifications of the carotid bifurcations and great vessels of the neck. There are surgical clips in the region of the left lobe of the thyroid gland. The visualized lung apices are unremarkable. IMPRESSION: 1. There are no acute intracranial findings; there are no bleeds or territorial infarcts. 2. No acute calvarial maxillofacial fractures are demonstrated. There are sequelae of prior trauma. The fluid within the paranasal sinuses has resolved. There are no acute fractures, and there are no large scalp contusions or hematomas. 3. There is mild to moderate diffuse volume loss and there are extensive chronic microvascular ischemic changes. 4. There are no acute fractures or subluxations in the cervical spine. There are sequelae of prior multilevel ACDF.
[2017-08-29] MEDS ORDERED: PREDNISONE5 M1 PO (10:05)
[2017-08-29] MEDS ORDERED: DIGOXIN125 MCG PO (10:06)
[2017-08-29] MEDS ORDERED: VITAMIN D32000 UNI1 PO (10:07)
[2017-08-29] MEDS ORDERED: DILTIAZEM HCL30 M1 PO (10:08)
--- NOTE | 2017-08-29 10:13 | RADIOLOGY REPORT ---
EXAMINATION: XR FOOT, LEFT CLINICAL INFORMATION: Fall. Pain. Swelling. Bruising of the dorsum of foot. Assess for fracture. COMPARISON: None. TECHNIQUE: AP, lateral, and oblique views of the left foot were obtained. FINDINGS: There is severe diffuse osteopenia. There are erosive changes at the distal metatarsals diffusely. There is subluxation of the first, second and fifth MP joints. There is also a moderate hallux valgus. There is narrowing of multiple IP joints throughout the foot, consistent with degenerative changes. There is a lucency through the base of the proximal phalanx of the fifth toe, which may be consistent with an age indeterminate nondisplaced fracture. There is mild soft tissue swelling over the dorsum of the foot in the region of the distal metatarsals. There is extensive vascular calcification. There are no joint effusions. IMPRESSION: 1. There are extensive chronic osseous changes with severe diffuse osteopenia. 2. There are subluxations at the MP joints with erosive changes of the distal metatarsals. 3. There is an equivocal fracture through the base of the proximal phalanx of the fifth toe. 4. There is soft tissue swelling over the dorsum of the foot.
--- NOTE | 2017-08-29 10:46 | CT SCAN REPORT ---
EXAMINATION: CT CHEST WITHOUT CONTRAST CT ABDOMEN AND PELVIS WITHOUT CONTRAST CLINICAL INFORMATION: Status post fall. Posterior thoracic back pain and right posterior rib pain. COMPARISON: CT abdomen and pelvis of 09/03/2016 and multiple previous abdomen and pelvic CTs dated back to 07/01/2012. CT chest of 02/02/2017 and multiple previous chest CTs dated back to 11/06/2009 TECHNIQUE: Multidetector volumetric CT imaging of the chest, abdomen and pelvis is acquired without intravenous contrast oral contrast administration. Sagittal and coronal reformatted images were obtained on the technologist's workstation. DLP: 364.94 mGy-cm FINDINGS: CHEST: LUNGS AND PLEURA: There is no evidence of pleural effusions or pneumothorax. Diffuse bronchiectatic changes with greatest in the right middle lobe, lingula and bilateral lower lobes, are again noted with associated bronchial wall thickening. Scattered tiny pulmonary nodules with tree-in-bud appearance are again noted, again greater in the bilateral lower lobes and right middle lobe and lingula. Compared to the last chest CT of 02/02/2017 the consolidative changes associated with the right middle lobe bronchiectasis have likely slightly improved. The bibasilar opacities posteriorly are likely not significantly changed compared to previous CT of 02/02/2017, and when compared to multiple other previous CTs, there is waxing and waning appearance of these opacities suggesting combination of scarring and chronic atelectatic opacities. Superimposed acute infection would be difficult to exclude. A nodular density in the left lung base in the lower lobe anteriorly adjacent to the major fissure measuring 0.5 x 0.8 cm (series 4 image 332) is not clearly seen on the previous CTs and appears to represent an impacted bronchus. No evidence of lung contusion. LOWER NECK AND MEDIASTINUM: The thyroid gland is atrophic. No focal thyroid nodule is seen. No evidence of mediastinal fluid collection or hematoma. No pericardial effusion. Cardiac size is normal. Hxouqvdg-ew-ywgbay coronary calcifications. No pericardial effusion. Trachea and central bronchi are well patent. The upper esophagus is mildly dilated and contains low-density material. CHEST WALL SOFT TISSUES AND AXILLA: A cardiac monitoring device is noted implanted in the subcutaneous tissue of the left anterior mid chest, in the para-midline location. The chest wall soft tissues are otherwise unremarkable. No axillary adenopathy. ABDOMEN AND PELVIS: LIVER, GALLBLADDER, AND BILIARY TREE: The liver is normal in size, shape, and attenuation. No focal hepatic lesion or biliary ductal dilatation is present. The gallbladder is surgically absent. PANCREAS: Stable appearance of pancreas with mild atrophy. SPLEEN: Unremarkable. ADRENAL GLANDS: Unremarkable. KIDNEYS AND URETERS: The kidneys are normal in size, shape and attenuation. Interval removal of a failed right ureteric stent. At least 5 nonobstructing right renal calculi are noted scattered throughout the kidney with the largest one in the upper to mid kidney measuring 0.6 cm in maximum dimension. No hydroureteronephrosis. No evidence of left renal calculi. No perinephric stranding. BLADDER: Unremarkable. GASTROINTESTINAL TRACT: Kmuzsyoc-xw-unzvrcech diffuse colonic diverticulosis without acute diverticulitis. Colocolic anastomosis is noted in the left pelvis. An appendix is not clearly identified. However, there are no inflammatory changes in the expected location of the appendix. Tiny diverticula of the distal ileal loops are also noted. The small bowel and stomach are not dilated. PERITONEAL CAVITY: No evidence of free intraperitoneal air or fluid. No inflammatory changes or nodularities seen in the omentum and mesentery. ABDOMINAL WALL: Stable small umbilical hernia containing fat. No definite evidence of soft tissue injury of the abdomen and pelvic wall. LYMPH NODES: No pathologically enlarged lymph nodes are noted. VASCULAR: Infrarenal abdominal aortic aneurysm is noted, approximately 3 cm below the origin of the renal arteries extending up to the aortic bifurcation measuring 5.4 cm in length and 4.2 x 4 cm in maximum AP and transverse dimensions, previously 3.7 x 3.7 cm in AP and transverse dimension (09/03/2016, 2.7 x 2.9 cm (07/01/2012). No evidence of periaortic fat stranding or hematoma. Moderate calcific atherosclerosis of the aortoiliac vessels. The iliac arteries are normal in caliber. PELVIC VISCERA: The uterus is surgically absent. No adnexal mass. OSSEOUS STRUCTURES: There is no evidence of acute osseous abnormality in the chest, abdomen and pelvis. Healed fractures of the right 6th, 7th, and 9th ribs are again noted. Diffuse osseous demineralization. Surgical hardware is again noted in the left proximal humerus transfixing the fracture. Chronic fracture deformity of the left-sided pubic rami in the vicinity of the pubic symphysis are again noted. No suspicious osseous lesion. Mild degenerative changes in the spine. Lower anterior cervical fusion hardware is partially seen. The alignment of the thoracolumbar spine is maintained. The vertebral body heights are maintained. The posterior elements are intact and in normal alignment. Degenerative disc disease is noted at L4-L5 with vacuum disc phenomenon. IMPRESSION: 1. No evidence of acute traumatic injury in the chest, abdomen and pelvis. Specifically there is no evidence of acute fracture or subluxation in the thoracolumbar spine or acute right rib fractures. 2. Evidence of chronic airway infection/inflammatory disease with changes of bronchiectasis and bronchial wall thickening as detailed above. Superimposed acute infectious/inflammatory process would be difficult to exclude. Recommend clinical correlation. A new 0.5 x 0.8 cm nodular opacity in the left lung base in the lower lobe anteriorly, most likely represents an impacted bronchus. Consider follow-up chest CT in 6 months. 3. Progressive interval increase in the size of the infrarenal abdominal aortic aneurysm currently measuring 4.2 x 4.0 cm, previously 3.7 x 3.7 cm (09/03/2016), 2.7 x 2.9 cm (). 4. Diffuse colonic diverticulosis without acute diverticulitis. 5. Nonobstructing multiple right renal calculi.
--- NOTE | 2017-08-29 14:55 | Cons- Podiatry ---
General Information and HPI Consulting Request Date of Consult: 08/29/17 Requested By: EBONY Evangelista Reason for Consult: Bruising, injury to left foot. Pain in right foot. Source of Information: patient, family Exam Limitations: no limitations History of Present Illness: This is an 82-year-old female seen and evaluated in the emergency room after being admitted to the internal medicine service, accompanied by her family, for bruising and swelling in the left foot. The patient also reports a severe but brief episode of right foot pain about 12 hours ago as well. Patient denies acute injury. The patient reports taking baby aspirin. The patient reports a history of rheumatoid arthritis, and reports having had a reconstructive surgery of all 5 of her toes on the left foot and the great toe on the right foot by another well service pump equipment operator locally. She is admitted to the internal medicine team for pneumonia, but is otherwise in no apparent distress, afebrile at the time of my exam, with vital signs stable. Allergies/Medications Allergies: Coded Allergies: hydromorphone (From DILAUDID) (Severe, SYNCOPE 04/21/16) morphine (Severe, SYNCOPE 04/21/16) oxycodone (Severe, UNKNOWN 09/19/15) tramadol (Severe, SYNCOPE 04/21/16) Sulfa (Sulfonamide Antibiotics) (Intermediate, HIVES 09/19/15) latex (Intermediate, BAD RASH 06/15/16) shrimp (HIVES, RASH 09/19/15) Home Med List: Acetaminophen (Tylenol Arthritis) 650 MG TABLET.ER 1 TAB PO BID PAIN ( Reported) Albuterol Sulfate (Proair Hfa) 8.5 GM HFA.AER.AD 2 PUF INH Q4-6 PRN PRN COPD (Reported) Reason to Stop at ADM: [facility] NEBS ORDERS Amlodipine Besylate (Norvasc) 5 MG TABLET 1 TAB PO DAILY HYPERTENSION ( Reported) Aspirin (Children's Aspirin) 81 MG TAB.CHEW 1 TAB PO DAILY HEART (Reported) Cholecalciferol (Vitamin D3) (Vitamin D3) 2,000 UNIT TABLET 1 TAB PO DAILY VITAMIN SUPPORT (Reported) Digoxin 125 MCG TABLET 1 TAB PO DAILY HEART (Reported) Diltiazem HCl 30 MG TABLET 1 TAB PO BID HEART (Reported) Fluticasone/Salmeterol (Advair 250-50 Diskus) 1 EACH BLST.W.DEV 1 PUF INH BID COPD (Reported) Reason to Stop at ADM: [facility] NEBS ORDERS Ipratropium/Albuterol Sulfate (Iprat-Albut 0.5-3(2.5) MG/3 Ml) 0.5 MG-3 MG (2.5 MG BASE)/3 ML AMPUL.NEB 1 INH PO DAILY PRN SHORTNESS OF BREATH (Reported) Levothyroxine Sodium 50 MCG TABLET 1 TAB PO DAILY AC THYROID (Reported) Lovastatin 40 MG TABLET 1 TAB PO DAILY HYPERCHOLESTEROL (Reported) with food Midodrine HCl 2.5 MG TABLET 1 TAB PO QAM HEART HEALTH (Reported) Prednisone 5 MG TABLET 1 TAB PO DAILY COPD (Reported) Current Medications: Current Medications Sig/Maya Start time Last Medication Dose Route Stop Time Status Admin Acetaminophen 650 MG ONCE ONE 08/29 0830 DC 08/29 PO 08/29 0831 0824 Acetaminophen 0 .STK-MED ONE 08/29 0826 DC PO Albuterol Sulfate 3 ML ONCE ONE 08/29 1115 DC 08/29 INH 08/29 1116 1140 Azithromycin 500 MG ONCE ONE 08/29 1115 DC 08/29 Dextrose/Water 250 ML IV 08/29 1214 1137 Ceftriaxone Sodium 0 .STK-MED ONE 08/29 1134 DC .ROUTE Ceftriaxone Sodium 1,000 MG ONCE ONE 08/29 1115 DC 08/29 IV 08/29 1116 1137 Ipratropium [place] 2.5 ML ONCE ONE 08/29 1115 DC 08/29 INH 08/29 1116 1141 Sodium Chloride 1,000 ML BOLUS ONE 08/29 1045 DC 08/29 IV 08/29 1144 1052 Past History Medical History Neurological: 1SCIATICA EENT: cataracts, ILIAMNA Cardiovascular: hypertension, hyperlipidemia Respiratory: COPD, pneumonia, pulmonary nodules which have been stable on CT scanning Gastrointestinal: diverticulitis Hepatic: GALL BLADDER REMOVAL Renal: R KIDNEY STONES Musculoskeletal: osteoarthritis, rheumatoid arthritis, sciatica Psychiatric: NONE Endocrine: hypothyroidism, osteoporosis Blood Disorders: NONE Cancer(s): NONE 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 FATHER (heart failure from severe asthma). . Psychosocial History Who Do You Live With? spouse Services at Home: None Primary Language: Mongolian Living Will? unknown Power of Tool Machine Set Up Operator/HCP? 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 Ambulation: independent, walker IADLs Independent: shopping, housework, finances, food prep, telephone, transportation , medication admin. Employment History Retired? unknown Review of Systems Review of Systems: A 14 point review of systems was performed, and was found to be negative apart from the patient's complaints described above in the history of present illness. Exam & Diagnostic Data Vital Signs and I&O Vital Signs Date Time Temp Pulse Resp B/P B/P Pulse O2 O2 Flow FiO2 Mean Ox Delivery Rate 08/29 1247 97.0 65 22 154/70 96 Room Air 08/29 1155 93 08/29 1138 97.0 80 18 127/58 96 Room Air 08/29 1015 97.2 84 20 133/62 96 Room Air 08/29 0813 94 Room Air 08/29 0811 99.2 106 18 160/68 94 Room Air Intake & Output 08/29 1600 08/29 0800 08/29 0000 08/28 1600 08/28 0800 08/28 0000 Intake Total 1000 Output Total Balance 1000 Intake, IV 1000 Intake, Oral 0 Patient 135 lb Weight Weight Reported by Patient Measurement Method Physical Exam: Palpable pedal pulses bilaterally, normal temperature gradient warm to cool proximal to distal in both lower extremities, capillary refill is 3 seconds in all 10 toes. The patient's sensation is grossly intact equal and bilateral. The patient has hair loss equal and bilateral, atrophic skin dorsally equal and bilateral, and varicosities equal and bilateral. The patient has scars on the dorsum of her left forefoot as well as over the right first ray consistent with the reconstructive procedure she reported having many years ago. The patient has extensor contractures of the first interphalangeal joint of both great toes, but with no pre-ulcerative lesions. The patient otherwise has 5 out of 5 muscle power in all lower extremity compartments. The patient's toenails are thickened , elongated, with white discoloration, but no other significant dystrophy. The patient has some slight ecchymosis over the dorsum of her left midfoot, but this is nonpainful on palpation. All 10 of her metatarsophalangeal joints are nonpainful on range of motion and gross palpation across the joints of the foot revealed no pain. Last 24 Hours of Labs: Laboratory Tests 08/29 08/29 1247 0904 Chemistry Lactic Acid (0.7 - 2.1 mmol/L) 2.7 H Urines Urine Color (YEL,AMB,STR) YEL Urine Clarity (CLEAR) HAZY H Urine pH (5.0 - 8.0) 6.5 Ur Specific [place] (1.001 - 1.035) 1.015 Urine Protein (NEG,<30 MG/DL) TRACE H Urine Ketones (NEG) NEG Urine Nitrite (NEG) NEG Urine Bilirubin (NEG) NEG Urine Urobilinogen (0.1 - 1.0 EU/dl) 0.2 Ur Leukocyte Esterase (NEG) MOD H Ur Microscopic SEDIMENT EXAMINED Urine RBC (0 - 5 /HPF) 1-3 Urine WBC (0 - 2 /HPF) 10-15 H Urine Bacteria (NEG/NONE) MANY H Urine Hemoglobin (NEG) SMALL H Urine Glucose (N MG/DL) NEG 08/29 0904 Chemistry Sodium (137 - 145 mmol/L) 144 Potassium (3.5 - 5.1 mmol/L) 4.2 Chloride (98 - 107 mmol/L) 105 Carbon Dioxide (22 - 30 mmol/L) 27 Anion Gap (5 - 16) 12 BUN (7 - 17 mg/dL) 16 Creatinine (0.5 - 1.0 mg/dL) 0.9 Estimated GFR (>60 ml/min) 60 BUN/Creatinine Ratio (7 - 25 %) 17.8 Glucose (65 - 99 mg/dL) 129 H Calcium (8.4 - 10.2 mg/dL) 9.1 Total Bilirubin (0.2 - 1.3 mg/dL) 0.7 AST (14 - 36 U/L) 34 ALT (9 - 52 U/L) 37 Alkaline Phosphatase (<127 U/L) 43 Creatine Kinase (30 - 135 U/L) 658 H Troponin I (< 0.11 ng/ml) 0.04 Total Protein (6.3 - 8.2 g/dL) 6.2 L Albumin (3.5 - 5.0 g/dL) 3.8 Globulin (1.9 - 4.2 gm/dL) 2.4 Albumin/Globulin Ratio (1.1 - 2.2 %) 1.6 Hematology CBC w Diff NO MAN DIFF REQ WBC (4.8 - 10.8 /CUMM) 13.2 H RBC (4.20 - 5.40 /CUMM) 4.46 Hgb (12.0 - 16.0 G/DL) 13.4 Hct (37 - 47 %) 40.8 MCV (81.0 - 99.0 FL) 91.4 MCH (27.0 - 31.0 PG) 30.1 MCHC (33.0 - 37.0 G/DL) 32.9 L RDW (11.5 - 14.5 %) 14.5 Plt Count (130 - 400 /CUMM) 237 MPV (7.4 - 10.4 FL) 7.7 Gran % (42.2 - 75.2 %) 82.4 H Lymphocytes % (20.5 - 51.1 %) 8.2 L Monocytes % (1.7 - 9.3 %) 7.6 Eosinophils % (0 - 5 %) 0.5 Basophils % (0.0 - 2.0 %) 1.3 Absolute Granulocytes (1.4 - 6.5 /CUMM) 10.9 H Absolute Lymphocytes (1.2 - 3.4 /CUMM) 1.1 L Absolute Monocytes (0.10 - 0.60 /CUMM) 1.0 H Absolute Eosinophils (0.0 - 0.7 /CUMM) 0.1 Absolute Basophils (0.0 - 0.2 /CUMM) 0.2 Imaging Results: Radiographs were reviewed, these are 3 views of the left foot. These were officially read by the radiologist as having concern for fractures at the base of the fifth proximal phalanx. The patient has multiple periarticular erosions both in the mid foot and in the interphalangeal joints as well as the distal aspect of the metatarsophalangeal joints. The patient is status post metatarsal head resections second, third, fourth, and fifth. With a Portillo-type bunionectomy procedure in the first ray. There does not appear to be any acute fracture, dislocation, or subluxation. Assessment/Plan Assessment/Plan 82-year-old female with history of rheumatoid arthritis status post successful rodriges metatarsal head resection on the left foot and Portillo-type bunionectomies bilaterally with nonpainful ecchymosis of the left foot, and residual episodic pain in the right foot The plan is as follows: 1. The patient was seen and evaluated with her family at bedside, and her radiographs are examined. 2. I do not see any weightbearing restrictions on the patient at this time, as her radiographic findings are consistent with a long history of rheumatoid arthritis status post reconstructive forefoot surgery, and do not see any acute injuries clinically or radiographically. 3. I do recommend that she have x-rays on her right foot, as she reports the pain there proximally 12 hours ago was or she has ever felt, but this may also be simply explained by degenerative joint disease, rheumatoid arthritis, sciatica, or combination of existing problems such as these. 4. I am available for further discussion and/or reconsultation at [phone], thank you for this consultation. Copies To: Rashel CARNEY,Bereket Miranda Consult Acknowledgment - Thank you for your consult request.
--- NOTE | 2017-08-29 14:56 | History & Physical ---
General Information and [facility] MD Statement: I have seen and personally examined COURTNEY GEIGER and documented this H&P. The patient is a 82 year old F who presented with a patient stated chief complaint of left foot pain status post fall. Source of Information: patient, family Exam Limitations: no limitations History of Present Illness: This is a 82-year-old female with past medical history significant for COPD not on home oxygen, hypertension, hypothyroidism, hyperlipidemia, cholecystectomy, hysterectomy, spinal fusion, B/L KNEE PARTIAL HYSTERECTOMY, L FOOT RECONSTRUCTIVE SX, CERVICAL FUSION presented to the emergency department after a fall early this morning. Patient reports left foot pain status post fall this morning at around 3 AM. She reports that she got up early childhood director to use bathroom and when she was walking back she suddenly had severe pain in right foot and leg causing her foot to give out and she fell in between commode and sink. She reports low back pain and left foot pain. Denies head strike, loss of consciousness, chest pain, palpitations, dizzy or lightheadedness. She has not been able to walk since fall. She was on the floor for next 4 hours. She was brought to the emergency room at around 8:00. The patient also reports a severe but brief episode of right foot pain about 12 hours ago as well. Patient denies acute injury. The patient reports taking baby aspirin. The patient reports a history of rheumatoid arthritis, and reports having had a reconstructive surgery of all 5 of her toes on the left foot and the great toe on the right foot by another binder coverstitch locally. She denies any chest pain, palpitations, short of breath, fever, chills. However she reports cough and phlegm production which is chronic from COPD. Denies any nausea, vomiting, abdominal pain, constipation, diarrhea, change in bladder or bowel habits. She quit smoking 40 years ago. Denies any alcohol abuse, illicit drug abuse. 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 She has loop recorder which was placed in March 2017. Off note she was admitted to [facility] in January 2017 for syncope, orthostatic hypotension. She was admitted to [facility] again in March 2017 for COPD exacerbation Allergies/Medications Allergies: Coded Allergies: hydromorphone (From DILAUDID) (Severe, SYNCOPE 04/21/16) morphine (Severe, SYNCOPE 04/21/16) oxycodone (Severe, UNKNOWN 09/19/15) tramadol (Severe, SYNCOPE 04/21/16) Sulfa (Sulfonamide Antibiotics) (Intermediate, HIVES 09/19/15) latex (Intermediate, BAD RASH 06/15/16) shrimp (HIVES, RASH 09/19/15) Home Med list Acetaminophen (Tylenol Arthritis) 650 MG TABLET.ER 1 TAB PO BID PAIN ( Reported) Albuterol Sulfate (Proair Hfa) 8.5 GM HFA.AER.AD 2 PUF INH Q4-6 PRN PRN COPD (Reported) Reason to Stop at ADM: [facility] Amlodipine Besylate (Norvasc) 5 MG TABLET 1 TAB PO DAILY HYPERTENSION ( Reported) Aspirin (Children's Aspirin) 81 MG TAB.CHEW 1 TAB PO DAILY HEART (Reported) Cholecalciferol (Vitamin D3) (Vitamin D3) 2,000 UNIT TABLET 1 TAB PO DAILY VITAMIN SUPPORT (Reported) Digoxin 125 MCG TABLET 1 TAB PO DAILY HEART (Reported) Diltiazem HCl 30 MG TABLET 1 TAB PO BID HEART (Reported) Fluticasone/Salmeterol (Advair 250-50 Diskus) 1 EACH BLST.W.DEV 1 PUF INH BID COPD (Reported) Reason to Stop at ADM: [facility] Ipratropium/Albuterol Sulfate (Iprat-Albut 0.5-3(2.5) MG/3 Ml) 0.5 MG-3 MG (2.5 MG BASE)/3 ML AMPUL.NEB 1 INH PO DAILY PRN SHORTNESS OF BREATH (Reported) Levothyroxine Sodium 50 MCG TABLET 1 TAB PO DAILY AC THYROID (Reported) Lovastatin 40 MG TABLET 1 TAB PO DAILY HYPERCHOLESTEROL (Reported) with food Midodrine HCl 2.5 MG TABLET 1 TAB PO QAM HEART [employer] (Reported) Prednisone 5 MG TABLET 1 TAB PO DAILY COPD (Reported) Compliance With Home Meds: GOOD Past History Travel History Traveled to [place] past 21 day No Medical History Neurological: 1SCIATICA EENT: cataracts, ASA'CARSARMIUT Cardiovascular: hypertension, hyperlipidemia Respiratory: COPD, pneumonia, pulmonary nodules which have been stable on CT scanning Gastrointestinal: diverticulitis Hepatic: GALL BLADDER REMOVAL Renal: R KIDNEY STONES Musculoskeletal: osteoarthritis, rheumatoid arthritis, sciatica Psychiatric: NONE Endocrine: hypothyroidism, osteoporosis Blood Disorders: NONE Cancer(s): NONE 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 FATHER (heart failure from severe asthma). . Psychosocial History Who Do You Live With? spouse Services at Home: None Primary Language: Lao Smoking Status: Former Smoker ETOH Use: occasional use Illicit Drug Use: denies illicit drug use Living Will? 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 Ambulation: independent, walker IADLs Independent: shopping, housework, finances, food prep, telephone, transportation , medication admin. Review of Systems Review of Systems Constitutional: Reports: weakness. Denies: chills, diaphoresis, fever, malaise, unexplained weight loss. EENTM: Denies: blurred vision, double vision, visual changes. Cardiovascular: Denies: chest pain, edema, orthopena, palpitations, peripheral edema, syncope. Respiratory: Reports: cough, short of breath. Denies: hemoptysis, orthopnea, sputum production, stridor, wheezing. GI: Denies: abdominal pain, bloating, constipation, diarrhea, distention, bloody stool. Genitourinary: Denies: discharge, dysuria, frequency. Musculoskeletal: Reports: back pain, joint pain, neck pain. Skin: Denies: dryness. Neurological/Psychological: Denies: anxiety, ataxia, confusion, depressed. Exam & Diagnostic Data Last 24 Hrs of Vital Signs/I&O Vital Signs Date Time Temp Pulse Resp B/P B/P Pulse O2 O2 Flow FiO2 Mean Ox Delivery Rate 08/29 1504 98.7 84 20 157/98 100 Room Air 08/29 1247 97.0 65 22 154/70 96 Room Air 08/29 1155 93 08/29 1138 97.0 80 18 127/58 96 Room Air 08/29 1015 97.2 84 20 133/62 96 Room Air 08/29 0813 94 Room Air 08/29 0811 99.2 106 18 160/68 94 Room Air Intake & Output 08/29 1600 08/29 0800 08/29 0000 Intake Total 1000 Output Total Balance 1000 Intake, IV 1000 Intake, Oral 0 Patient 61.235 kg Weight Weight Reported by Patient Measurement Method Physical Exam General Appearance Alert, Oriented X3, Cooperative, No Acute Distress Skin No Rashes, scars on the dorsum of her left forefoot Skin Temp/Moisture Exam: Warm/Dry Sepsis Skin Exam (color): Normal for Ethnicity HEENT Atraumatic, PERRLA, EOMI, Mucous Membr. moist/pink Neck Supple, No JVD, No thryomegaly Lymphatic Axillary nl, Cervical nl Cardiovascular Regular Rate, Normal S1, Normal S2, No Murmurs Lungs Normal Air Movement Abdomen Normal Bowel Sounds, Soft, No Tenderness Neurological Strength at 5/5 X4 Ext, Sensation Intact, Cranial Nerves 3-12 NL, Reflexes 2+ Extremities No Clubbing, No Cyanosis, No Edema Vascular Normal Pulses, Pulses Symmetrical Sepsis Peripheral Pulse Location: Radial Sepsis Peripheral Pulse Exam: Normal Sepsis Cap Refill Exam: <2 Sec Last 24 Hrs of Labs/Jag: Laboratory Tests 08/29/17 1247: Urine Color YEL, Urine Clarity HAZY H, Urine pH 6.5, Ur Specific Startex 1.015, Urine Protein TRACE H, Urine Ketones NEG, Urine Nitrite NEG, Urine Bilirubin NEG, Urine Urobilinogen 0.2, Ur Leukocyte Esterase MOD H, Ur Microscopic SEDIMENT EXAMINED, Urine RBC 1-3, Urine WBC 10-15 H, Urine Bacteria MANY H, Urine Hemoglobin SMALL H, Urine Glucose NEG 08/29/17 0904: Lactic Acid 2.7 H 08/29/17 0904: Anion Gap 12, Estimated GFR 60, BUN/Creatinine Ratio 17.8, Glucose 129 H, Calcium 9.1, Total Bilirubin 0.7, AST 34, ALT 37, Alkaline Phosphatase 43, Creatine Kinase 658 H, Troponin I 0.04, Total Protein 6.2 L, Albumin 3.8, Globulin 2.4, Albumin/Globulin Ratio 1.6, CBC w Diff NO MAN DIFF REQ, RBC 4.46, MCV 91.4, MCH 30.1, MCHC 32.9 L, RDW 14.5, MPV 7.7, Gran % 82.4 H, Lymphocytes % 8.2 L, Monocytes % 7.6, Eosinophils % 0.5, Basophils % 1.3, Absolute Granulocytes 10.9 H, Absolute Lymphocytes 1.1 L, Absolute Monocytes 1.0 H, Absolute Eosinophils 0.1, Absolute Basophils 0.2 Microbiology 08/29 1130 BLOOD: Blood Culture - RECD 08/29 1120 BLOOD: Blood Culture - RECD 08/29 1110 LOWER RESP: Respiratory Culture - ORD 08/29 1110 LOWER RESP: Gram Stain - ORD 08/29 UNK NASOPHARYN: Influenza Virus A & B Rapid Smear - COMP Assessment/Plan Assessment: This is a 82-year-old female with past medical history significant for COPD not on home oxygen, hypertension, hypothyroidism, hyperlipidemia, cholecystectomy, hysterectomy, spinal fusion, B/L KNEE PARTIAL HYSTERECTOMY, L FOOT RECONSTRUCTIVE SX, CERVICAL FUSION presented to the emergency department after a fall early this morning. Vitals afebrile, heart rate 106, respiratory rate 18, blood pressure 154 on 70, saturating at 96 on room air. Pertinent labs leukocytosis 13.2, hemoglobin 13, hematocrit 40, platelets 237. Urine analysis positive for leukocyte esterase, WBC, bacteria, hemoglobin BUN 16 and creatinine 0.9. Creatinine kinase 658 lactic acid 2.7 LFTs normal Troponin normal Cervical spine CT was normal, head CT was normal. Foot x-ray showed swelling of.some left foot, base of proximal phalanx fifth toe fracture. Left foot pain Status post fall Patient reports left foot pain status post fall. Denies head strike, loss of consciousness, chest pain, palpitations, dizzy or lightheadedness. She has not been able to walk since fall. She was on the floor for next 4 hours. She is hemodynamically stable. * she has history of rheumatoid arthritis status post successful rodriges metatarsal head resection on the left foot and Portillo-type bunionectomies bilaterally with nonpainful ecchymosis of the left foot, and residual episodic pain in the right foot. * Left foot x-ray was done which showed swelling of dorsum of foot and fifth toe fracture at the base of proximal phalanx. * Annealing Oven Operator was consulted. * No weightbearing restrictions for now * Given her right foot pain 12 hours prior to the event, will check right foot x -ray * follow-up right foot x-ray * Monitor vitals closely every shift * PT consult, may need STIR placement * Case management was consulted * Adequate Pain management Infrarenal abdominal aortic aneurysm Progressive interval increase in the size of the infrarenal abdominal aortic aneurysm currently measuring 4.2 x 4.0 cm, previously 3.7 x 3.7 cm (09/03/2016), 2.7 x 2.9 cm (). * Vascular surgery was consulted * Please follow-up vascular surgery recommendations Lung nodule A new 0.5 x 0.8 cm nodular opacity in the left lung base in the lower lobe anteriorly, most likely represents an impacted bronchus. * Consider follow-up chest CT in 6 months. Leukocytosis Patient fulfilled SIRS criteria at the time of admission with tachycardia 106, leukocytosis 13.2. However no source of infection was found. She has history of COPD, no pneumonia was found on CAT scan chest. Urine analysis showed moderate WBC, esterase. However denied any urinary symptoms. * Monitor for any fever, worsening leukocytosis * Monitor off from antibiotics Lactic acidosis Patient was found to have lactic acid 2.7 at the time of admission. Most possibly from dehydration. * IV gentle hydration with normal saline * Repeat lactic acid Elevated creatinine kinase Patient was found to have his creatinine kinase 658 at the time of admission. She has not been able to walk since fall. She was on the floor for next 4 hours. Elevated creatinine kinase mostly from immobilization. Off note kidney function tests were normal * Please trend creatinine kinase * Provide adequate hydration COPD total respiratory care and inhaler treatments Hypertension-continue amlodipine 5 mg daily Rheumatoid arthritis-continue prednisone 5 mg daily Hypothyroidism-continue levothyroxine 50 g daily Hyperlipidemia-continue lovastatin 40 daily Orthostatic hypotension-continue midodrine 2.5 mg daily Continue home medications aspirin, digoxin, Cardizem DNR/DNI Regular diet Pain pathway DVT prophylaxis subcutaneous Lovenox As Ranked By This Provider Problem List: 1. Foot fracture, left Qualifiers Encounter type: initial encounter Fracture type: closed Qualified Code: S92.902A - Unspecified fracture of left foot, initial encounter for closed fracture Core Measures/Misc (04/01) Acute Coronary Syndrome ACS Diagnosis: No Congestive Heart Failure Congestive Heart Failure Diagnosis No Cerebrovascular Accident CVA/TIA Diagnosis: No VTE (View Protocol) VTE Risk Factors No risk factors No Mechanical VTE Prophylaxis d/t N/A MechProphylax Ordered No VTE Pharm Prophylaxis d/t NA PharmProphylax ordered Sepsis (View protocol) Sepsis Present: No
--- NOTE | 2017-08-29 15:46 | Event Note ---
Event Note Event Note: Spoke with Dr. Jefferson Pena, vascular surgeon regarding infrarenal abdominal aortic aneurysm. Dr. Pena has reviewed images and has recommended outpatient follow-up. * No need for acute inpatient intervention * Will provide outpatient vascular surgery referral at the time of discharge. * Dr. Pena wants patient to be seen at [facility], #[phone] Dr. Jefferson Wells called regarding CT imaging showing abdominal aortic aneurysm. I was asked to see patient. Physical Exam: General: Alert and oriented x3, no acute distress Cardiac: RRR, s1s2 Pulm: Non-labored respiratory effort, bilateral lung sounds clear Abdomen: Obese, non-tender, non-distedned, BS auscultated, no bruit auscultated Extremtieis: Left foot tenderness, moves all extremities, distal sensation intact, skin warm and well perfused, pedal pulses intact. Bilateral calves soft /non-tender. As per Dr. Wells's recommendations: * No need for acute inpatient intervention * Will provide outpatient vascular surgery referral at the time of discharge. * Dr. Wells wants patient to be seen at [facility], #[phone]
[2017-08-29 17:02] VITALS: BP 130/80
--- NOTE | 2017-08-29 17:18 | Cons- Vascular Surgery ---
General Information and HPI Consulting Request Date of Consult: 08/29/17 Requested By: Dayne CARNEY,Jayme Reason for Consult: CT imaging of AAA increasing in size Source of Information: patient, old records Exam Limitations: no limitations History of Present Illness: Pt presented to ER with C/O foot pain s/p a fall at home. Has hx of chronic back pain. Has known AAA, was 3.7 cm in size on last CT scan and has increased to 4.[address] Wells consulted for input. Allergies/Medications Allergies: Coded Allergies: hydromorphone (From DILAUDID) (Severe, SYNCOPE 04/21/16) morphine (Severe, SYNCOPE 04/21/16) oxycodone (Severe, UNKNOWN 09/19/15) tramadol (Severe, SYNCOPE 04/21/16) Sulfa (Sulfonamide Antibiotics) (Intermediate, HIVES 09/19/15) latex (Intermediate, BAD RASH 06/15/16) shrimp (HIVES, RASH 09/19/15) Home Med List: Acetaminophen (Tylenol Arthritis) 650 MG TABLET.ER 1 TAB PO BID PAIN ( Reported) Albuterol Sulfate (Proair Hfa) 8.5 GM HFA.AER.AD 2 PUF INH Q4-6 PRN PRN COPD (Reported) Reason to Stop at ADM: [facility]BS ORDERS Amlodipine Besylate (Norvasc) 5 MG TABLET 1 TAB PO DAILY HYPERTENSION ( Reported) Aspirin (Children's Aspirin) 81 MG TAB.CHEW 1 TAB PO DAILY HEART (Reported) Cholecalciferol (Vitamin D3) (Vitamin D3) 2,000 UNIT TABLET 1 TAB PO DAILY VITAMIN SUPPORT (Reported) Digoxin 125 MCG TABLET 1 TAB PO DAILY HEART (Reported) Diltiazem HCl 30 MG TABLET 1 TAB PO BID HEART (Reported) Fluticasone/Salmeterol (Advair 250-50 Diskus) 1 EACH BLST.W.DEV 1 PUF INH BID COPD (Reported) Reason to Stop at ADM: [facility]BS ORDERS Ipratropium/Albuterol Sulfate (Iprat-Albut 0.5-3(2.5) MG/3 Ml) 0.5 MG-3 MG (2.5 MG BASE)/3 ML AMPUL.NEB 1 INH PO DAILY PRN SHORTNESS OF BREATH (Reported) Levothyroxine Sodium 50 MCG TABLET 1 TAB PO DAILY AC THYROID (Reported) Lovastatin 40 MG TABLET 1 TAB PO DAILY HYPERCHOLESTEROL (Reported) with food Midodrine HCl 2.5 MG TABLET 1 TAB PO QAM HEART HEALTH (Reported) Prednisone 5 MG TABLET 1 TAB PO DAILY COPD (Reported) Past History Medical History Neurological: 1SCIATICA EENT: cataracts, [place] Cardiovascular: hypertension, hyperlipidemia Respiratory: COPD, pneumonia, pulmonary nodules which have been stable on CT scanning Gastrointestinal: diverticulitis Hepatic: GALL BLADDER REMOVAL Renal: R KIDNEY STONES Musculoskeletal: osteoarthritis, rheumatoid arthritis, sciatica Psychiatric: NONE Endocrine: hypothyroidism, osteoporosis Blood Disorders: NONE Cancer(s): NONE 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 FATHER (heart failure from severe asthma). . Psychosocial History Where Do You Live? Home Who Do You Live With? spouse Services at Home: None Primary Language: Kinyarwanda Smoking Status: Former Smoker ETOH Use: occasional use Illicit Drug Use: denies illicit drug use Living Will? 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 Ambulation: independent, walker IADLs Independent: shopping, housework, finances, food prep, telephone, transportation , medication admin. Employment History Retired? unknown Review of Systems Review of Systems: See H&P Exam & Diagnostic Data Vital Signs and I&O Vital Signs Date Time Temp Pulse Resp B/P B/P Pulse O2 O2 Flow FiO2 Mean Ox Delivery Rate 08/29 1702 98.8 102 20 130/80 91 Room Air 08/29 1526 Room Air 08/29 1504 98.7 84 20 157/98 100 Room Air 08/29 1247 97.0 65 22 154/70 96 Room Air 08/29 1155 93 08/29 1138 97.0 80 18 127/58 96 Room Air 08/29 1015 97.2 84 20 133/62 96 Room Air 08/29 0813 94 Room Air 08/29 0811 99.2 106 18 160/68 94 Room Air Intake & Output 08/29 1600 08/29 0800 08/29 0000 08/28 1600 08/28 0800 08/28 0000 Intake Total 1000 Output Total Balance 1000 Intake, IV 1000 Intake, Oral 0 Patient 135 lb Weight Weight Reported by Patient Measurement Method Physical Exam: Physical Exam: General: Alert and oriented x3, no acute distress Cardiac: RRR, s1s2 Pulm: Non-labored respiratory effort, bilateral lung sounds clear Abdomen: Obese, non-tender, non-distedned, BS auscultated, no bruit auscultated Extremtieis: Left foot tenderness, moves all extremities, distal sensation intact, skin warm and well perfused, pedal pulses intact. Bilateral calves soft /non-tender. Last 24 Hours of Labs: Laboratory Tests 08/29 08/29 08/29 1530 1247 0904 Chemistry Lactic Acid (0.7 - 2.1 mmol/L) 1.8 2.7 H Urines Urine Color (YEL,AMB,STR) YEL Urine Clarity (CLEAR) HAZY H Urine pH (5.0 - 8.0) 6.5 Ur Specific [place] (1.001 - 1.035) 1.015 Urine Protein (NEG,<30 MG/DL) TRACE H Urine Ketones (NEG) NEG Urine Nitrite (NEG) NEG Urine Bilirubin (NEG) NEG Urine Urobilinogen (0.1 - 1.0 EU/dl) 0.2 Ur Leukocyte Esterase (NEG) MOD H Ur Microscopic SEDIMENT EXAMINED Urine RBC (0 - 5 /HPF) 1-3 Urine WBC (0 - 2 /HPF) 10-15 H Urine Bacteria (NEG/NONE) MANY H Urine Hemoglobin (NEG) SMALL H Urine Glucose (N MG/DL) NEG 08/29 0904 Chemistry Sodium (137 - 145 mmol/L) 144 Potassium (3.5 - 5.1 mmol/L) 4.2 Chloride (98 - 107 mmol/L) 105 Carbon Dioxide (22 - 30 mmol/L) 27 Anion Gap (5 - 16) 12 BUN (7 - 17 mg/dL) 16 Creatinine (0.5 - 1.0 mg/dL) 0.9 Estimated GFR (>60 ml/min) 60 BUN/Creatinine Ratio (7 - 25 %) 17.8 Glucose (65 - 99 mg/dL) 129 H Calcium (8.4 - 10.2 mg/dL) 9.1 Total Bilirubin (0.2 - 1.3 mg/dL) 0.7 AST (14 - 36 U/L) 34 ALT (9 - 52 U/L) 37 Alkaline Phosphatase (<127 U/L) 43 Creatine Kinase (30 - 135 U/L) 658 H Troponin I (< 0.11 ng/ml) 0.04 Total Protein (6.3 - 8.2 g/dL) 6.2 L Albumin (3.5 - 5.0 g/dL) 3.8 Globulin (1.9 - 4.2 gm/dL) 2.4 Albumin/Globulin Ratio (1.1 - 2.2 %) 1.6 Hematology CBC w Diff NO MAN DIFF REQ WBC (4.8 - 10.8 /CUMM) 13.2 H RBC (4.20 - 5.40 /CUMM) 4.46 Hgb (12.0 - 16.0 G/DL) 13.4 Hct (37 - 47 %) 40.8 MCV (81.0 - 99.0 FL) 91.4 MCH (27.0 - 31.0 PG) 30.1 MCHC (33.0 - 37.0 G/DL) 32.9 L RDW (11.5 - 14.5 %) 14.5 Plt Count (130 - 400 /CUMM) 237 MPV (7.4 - 10.4 FL) 7.7 Gran % (42.2 - 75.2 %) 82.4 H Lymphocytes % (20.5 - 51.1 %) 8.2 L Monocytes % (1.7 - 9.3 %) 7.6 Eosinophils % (0 - 5 %) 0.5 Basophils % (0.0 - 2.0 %) 1.3 Absolute Granulocytes (1.4 - 6.5 /CUMM) 10.9 H Absolute Lymphocytes (1.2 - 3.4 /CUMM) 1.1 L Absolute Monocytes (0.10 - 0.60 /CUMM) 1.0 H Absolute Eosinophils (0.0 - 0.7 /CUMM) 0.1 Absolute Basophils (0.0 - 0.2 /CUMM) 0.2 Imaging Results: PATIENT: COURTNEY GEIGER PRESENT AGE: 82 PATIENT ACCOUNT NO: [id number] : 35 LOCATION: [facility] ORDERING PHYSICIAN: Ranjan BECK SERVICE DATE: 08/29/17 EXAM TYPE: CAT - CT ABD & PELVIS W/O IV CONTRAS; CT CHEST WO IV CONTRAST EXAMINATION: CT CHEST WITHOUT CONTRAST CT ABDOMEN AND PELVIS WITHOUT CONTRAST CLINICAL INFORMATION: Status post fall. Posterior thoracic back pain and right posterior rib pain. COMPARISON: CT abdomen and pelvis of 09/03/2016 and multiple previous abdomen and pelvic CTs dated back to 07/01/2012. CT chest of 02/02/2017 and multiple previous chest CTs dated back to 11/06/2009 TECHNIQUE: Multidetector volumetric CT imaging of the chest, abdomen and pelvis is acquired without intravenous contrast oral contrast administration. Sagittal and coronal reformatted images were obtained on the technologist's workstation. DLP: 364.94 mGy-cm FINDINGS: CHEST: LUNGS AND PLEURA: There is no evidence of pleural effusions or pneumothorax. Diffuse bronchiectatic changes with greatest in the right middle lobe, lingula and bilateral lower lobes, are again noted with associated bronchial wall thickening. Scattered tiny pulmonary nodules with tree-in-bud appearance are again noted, again greater in the bilateral lower lobes and right middle lobe and lingula. Compared to the last chest CT of 02/02/2017 the consolidative changes associated with the right middle lobe bronchiectasis have likely slightly improved. The bibasilar opacities posteriorly are likely not significantly changed compared to previous CT of 02/02/2017, and when compared to multiple other previous CTs, there is waxing and waning appearance of these opacities suggesting combination of scarring and chronic atelectatic opacities. Superimposed acute infection would be difficult to exclude. A nodular density in the left lung base in the lower lobe anteriorly adjacent to the major fissure measuring 0.5 x 0.8 cm (series 4 image 332) is not clearly seen on the previous CTs and appears to represent an impacted bronchus. No evidence of lung contusion. LOWER NECK AND MEDIASTINUM: The thyroid gland is atrophic. No focal thyroid nodule is seen. No evidence of mediastinal fluid collection or hematoma. No pericardial effusion. Cardiac size is normal. Sbeimoph-jj-clzkeb coronary calcifications. No pericardial effusion. Trachea and central bronchi are well patent. The upper esophagus is mildly dilated and contains low-density material. CHEST WALL SOFT TISSUES AND AXILLA: A cardiac monitoring device is noted implanted in the subcutaneous tissue of the left anterior mid chest, in the para-midline location. The chest wall soft tissues are otherwise unremarkable. No axillary adenopathy. ABDOMEN AND PELVIS: LIVER, GALLBLADDER, AND BILIARY TREE: The liver is normal in size, shape, and attenuation. No focal hepatic lesion or biliary ductal dilatation is present. The gallbladder is surgically absent. PANCREAS: Stable appearance of pancreas with mild atrophy. SPLEEN: Unremarkable. ADRENAL GLANDS: Unremarkable. KIDNEYS AND URETERS: The kidneys are normal in size, shape and attenuation. Interval removal of a failed right ureteric stent. At least 5 nonobstructing right renal calculi are noted scattered throughout the kidney with the largest one in the upper to mid kidney measuring 0.6 cm in maximum dimension. No hydroureteronephrosis. No evidence of left renal calculi. No perinephric stranding. BLADDER: Unremarkable. GASTROINTESTINAL TRACT: Acisofgy-zr-zvwcpjisb diffuse colonic diverticulosis without acute diverticulitis. Colocolic anastomosis is noted in the left pelvis. An appendix is not clearly identified. However, there are no inflammatory changes in the expected location of the appendix. Tiny diverticula of the distal ileal loops are also noted. The small bowel and stomach are not dilated. PERITONEAL CAVITY: No evidence of free intraperitoneal air or fluid. No inflammatory changes or nodularities seen in the omentum and mesentery. ABDOMINAL WALL: Stable small umbilical hernia containing fat. No definite evidence of soft tissue injury of the abdomen and pelvic wall. LYMPH NODES: No pathologically enlarged lymph nodes are noted. VASCULAR: Infrarenal abdominal aortic aneurysm is noted, approximately 3 cm below the origin of the renal arteries extending up to the aortic bifurcation measuring 5.4 cm in length and 4.2 x 4 cm in maximum AP and transverse dimensions, previously 3.7 x 3.7 cm in AP and transverse dimension (09/03/2016, 2.7 x 2.9 cm (07/01/2012). No evidence of periaortic fat stranding or hematoma. Moderate calcific atherosclerosis of the aortoiliac vessels. The iliac arteries are normal in caliber. PELVIC VISCERA: The uterus is surgically absent. No adnexal mass. OSSEOUS STRUCTURES: There is no evidence of acute osseous abnormality in the chest, abdomen and pelvis. Healed fractures of the right 6th, 7th, and 9th ribs are again noted. Diffuse osseous demineralization. Surgical hardware is again noted in the left proximal humerus transfixing the fracture. Chronic fracture deformity of the left-sided pubic rami in the vicinity of the pubic symphysis are again noted. No suspicious osseous lesion. Mild degenerative changes in the spine. Lower anterior cervical fusion hardware is partially seen. The alignment of the thoracolumbar spine is maintained. The vertebral body heights are maintained. The posterior elements are intact and in normal alignment. Degenerative disc disease is noted at L4-L5 with vacuum disc phenomenon. IMPRESSION: 1. No evidence of acute traumatic injury in the chest, abdomen and pelvis. Specifically there is no evidence of acute fracture or subluxation in the thoracolumbar spine or acute right rib fractures. 2. Evidence of chronic airway infection/inflammatory disease with changes of bronchiectasis and bronchial wall thickening as detailed above. Superimposed acute infectious/inflammatory process would be difficult to exclude. Recommend clinical correlation. A new 0.5 x 0.8 cm nodular opacity in the left lung base in the lower lobe anteriorly, most likely represents an impacted bronchus. Consider follow-up chest CT in 6 months. 3. Progressive interval increase in the size of the infrarenal abdominal aortic aneurysm currently measuring 4.2 x 4.0 cm, previously 3.7 x 3.7 cm (09/03/2016), 2.7 x 2.9 cm (). 4. Diffuse colonic diverticulosis without acute diverticulitis. 5. Nonobstructing multiple right renal calculi. DICTATED BY: Justice Velazco MD DATE/TIME DICTATED:08/29/17929 FEATHER RENOVATOR:ALINE DATE/TIME TRANSCRIBED:08/29/17929 CONFIDENTIAL, DO NOT COPY WITHOUT APPROPRIATE AUTHORIZATION. <Electronically signed in Other Vendor System> SIGNED BY: Juan A CARNEY,Anal 08/29/17 1046 Assessment/Plan Assessment/Plan As per Dr. Wells's recommendations: * No need for acute inpatient intervention * Will provide outpatient vascular surgery referral at the time of discharge. * Dr. Wells wants patient to be seen at [facility], #[phone] Consult Acknowledgment - Thank you for your consult request.
--- NOTE | 2017-08-29 17:41 | RADIOLOGY REPORT ---
EXAMINATION: CR ANKLE, RIGHT CR FOOT, RIGHT CLINICAL INFORMATION: Right foot pain. Presumptive diagnosis of fracture. COMPARISON: None TECHNIQUE: 3 views of the right ankle. 3 views of the right foot. FINDINGS: Right Ankle: There is mild soft tissue edema about the medial and lateral malleoli. Marked osteopenia is noted. No definite displaced fractures are seen. The ankle mortise is intact. No ankle joint effusion is seen. Prominent arterial calcifications are seen in the soft tissues. Right Foot: Diffuse osteopenia is seen. There is penciling deformity of the distal 5th metatarsal bone with hypertrophic changes and cystic changes at the 5th metatarsal phalangeal joint. There is also prominent hallux valgus deformity of the 1st ray with secondary extensive degenerative changes at the 1st metatarsophalangeal joint. Moderate degenerative changes are also seen at the intertarsal joints. No definite acute fracture or dislocation is seen. Pes planus deformity of the foot is noted. Small plantar calcaneal spur is noted. IMPRESSION: 1. Mild soft tissue swelling about the ankle. No definite acute fracture or dislocation of the right foot and right ankle. No ankle joint effusion seen. 2. Diffuse osteopenia. 3. Hallux valgus deformity of the 1st ray of the right foot. 4. Extensive erosive changes seen at the 5th metatarsophalangeal joint.
[2017-08-29 22:27] VITALS: BP 120/50
[2017-08-30 06:00] VITALS: BP 112/74
--- NOTE | 2017-08-30 08:40 | PN- Housestaff ---
Zari CARNEY,Pk 08/30/17 0840: Subjective Follow-up For: fall pneumonia Subjective: patient had low grade fever tmax 100.1 ambulating independently with physical therapy today h/o copd but change in sputum production Review of Systems Constitutional: Reports: see HPI. Objective Last 24 Hrs of Vital Signs/I&O Vital Signs Date Time Temp Pulse Resp B/P B/P Pulse O2 O2 Flow FiO2 Mean Ox Delivery Rate 08/30 1422 98.0 85 22 130/60 93 08/30 0904 90 Room Air Room Air 08/30 0807 72 140/70 08/30 0807 72 140/70 08/30 0753 Room Air 08/30 0737 98.8 08/30 0600 98.9 75 18 112/74 92 Room Air 08/29 2227 100.1 103 18 120/50 92 08/29 2159 Room Air 08/29 2130 98.8 102 20 130/80 08/29 1815 130/80 08/29 1702 98.8 102 20 130/80 91 Room Air 08/29 1526 Room Air Intake & Output 08/30 1600 08/30 0800 08/30 0000 Intake Total 1300 700 300 Output Total 350 Balance 1300 350 300 Intake, IV 600 300 Intake, Oral 1300 100 Number 0 Bowel Movements Output, Urine 350 Patient 61.235 kg Weight Weight Reported by Patient Measurement Method Physical Exam General Appearance: Alert, Oriented X3, Cooperative, No Acute Distress Cardiovascular: Regular Rate, Normal S1, Normal S2, No Murmurs Lungs: Clear to Auscultation, Normal Air Movement Abdomen: Normal Bowel Sounds, Soft, No Tenderness, No Masses Extremities: No Clubbing, No Cyanosis, No Edema, Normal Pulses Current Medications: Current Medications Sig/Maya Start time Last Medication Dose Route Stop Time Status Admin Acetaminophen 650 MG Q6P PRN 08/29 1445 AC PO Acetaminophen 1,000 MG Q6P PRN 08/29 1445 AC IV Albuterol Sulfate 3 ML BID 08/30 1000 AC 08/30 INH 0901 Albuterol Sulfate 3 ML Q6P PRN 08/29 1500 AC INH Amlodipine Besylate 5 MG DAILY 08/29 1448 AC 08/30 PO 0807 Aspirin 81 MG DAILY 08/29 1448 AC 08/30 PO 0807 Atorvastatin Calcium 40 MG 1700 08/29 1700 AC 08/29 PO 1817 Azithromycin 500 MG DAILY 08/30 1107 AC 08/30 Dextrose/Water 250 ML IV 1422 Ceftriaxone Sodium 1,000 MG DAILY 08/30 1107 AC 08/30 IV 1422 Cholecalciferol 1,000 IU DAILY 08/29 1448 AC 08/30 PO 0806 Digoxin 0.125 MG 1700 08/29 1700 AC 08/29 PO 1817 Diltiazem HCl 30 MG BID 08/29 1449 AC 08/30 PO 0807 Enoxaparin Sodium 40 MG DAILY 08/29 1443 AC SC Fluticasone 2 PUF BID 08/29 2200 AC 08/30 Propionate INH 0807 Ipratropium [place] 2.5 ML BID 08/30 1000 AC 08/30 INH 0901 Levothyroxine Sodium 0.05 MG DAILY AC 08/29 1450 AC 08/30 PO 0609 Midodrine 2.5 MG QAM 08/30 1000 AC 08/30 PO 0806 Prednisone 5 MG DAILY 08/29 1450 AC 08/30 PO 0806 Sodium Chloride 1,000 ML [id number] 08/29 1445 DC 08/29 IV 08/30 0404 1813 Last 24 Hrs of Lab/Jag Results Last 24 Hrs of Labs/Mics: Laboratory Tests 08/30/17 0915: CBC w Diff NO MAN DIFF REQ, RBC 4.11 L, MCV 91.2, MCH 30.1, MCHC 33.0, RDW 14.4 , MPV 8.3, Gran % 77.4 H, Lymphocytes % 15.7 L, Monocytes % 3.9, Eosinophils % 1.7, Basophils % 1.3, Absolute Granulocytes 6.3, Absolute Lymphocytes 1.3, Absolute Monocytes 0.3, Absolute Eosinophils 0.1, Absolute Basophils 0.1 08/30/17 0653: Anion Gap 9, Estimated GFR > 60, BUN/Creatinine Ratio 18.6, Creatine Kinase 798 H, Digoxin 0.9 08/29/17 1530: Lactic Acid 1.8 Assessment/Plan Assessment: 82-year-old female with past medical history significant for COPD not on home oxygen, hypertension, hypothyroidism, hyperlipidemia, cholecystectomy, hysterectomy, spinal fusion, B/L KNEE PARTIAL HYSTERECTOMY, L FOOT RECONSTRUCTIVE SX, CERVICAL FUSION presented to the emergency department after a fall. Sepsis secondary to pneumonia: Leukocytosis, tachycardia, lactic acidemia, tmax 100.1 Follow up urine and blood cultures Check sputum cultures, urinary strep pneumo legionella antigen Received azithromycin and ceftriaxone in ED, continue antibiotics TRC eval, h/o copd Bilateral foot pain with mechanical fall: Foot x-ray showed swelling of.some left foot, base of proximal phalanx fifth toe fracture Evaluated by podiatry and physical therapy, no weight bearing restriction Ambulated independently CK 650 - > 800, repeat in the morning History of rheumatoid arthritis: Bilateral knee replacements and foot surgeries Continue daily prednisone 5mg AAA: Progressive interval increase infrarenal aortic aneurysm Currently measuring 4.2 x 4.0 cm, 3.7 x 3.7 cm (08/2016), 2.7 x 2.9 cm (06/2012 ). Outpatient Vascular surgery follow up pAfib Recently started on cardizem, digoxin for atrial fibrillation, event monitor outpt Had been sinus rhythm on previous echo LVEF wnl Check digoxin level, interaction with azithromycin Lung nodule: New 0.5 x 0.8 cm nodular opacity in the left lung base in the lower lobe anteriorly Consider follow-up chest CT in 6 months. COPD: TR evaluation Hypertension: Continue amlodipine 5 mg daily Rheumatoid arthritis: Continue prednisone 5 mg daily Hypothyroidism: Continue levothyroxine 50 g daily Hyperlipidemia: Continue lovastatin 40 daily Orthostatic hypotension: Continue midodrine 2.5 mg daily Regular diet DVT ppx-lovenox 40mg subcutaneous daily DNR/DNI Problem List: 1. Bronchitis 2. COPD exacerbation 3. Atypical pneumonia Pain Ratin Pain Location: n/a Pain Goal: Pain 4 or less Pain Plan: prn Tomorrow's Labs & Rationales: none Flavio Demarco MD 08/30/17 1412: Attending MD Review Statement Attending Statement Attending MD Statement: examined this patient, discuss w/resident/PA/LEGAL DOCUMENT SPECIALIST, agreed w/resident/PA/LEGAL DOCUMENT SPECIALIST, reviewed EMR data (avail) Attending Assessment/Plan: 82F PMH rheumatoid arthritis status post successful rodriges metatarsal head resection on the left foot, HTN, HLD presenting with fall, down for several hours, following right foot pain that has since resolved, with labs showing dehydration, mild CPK increase, and evidence of RLL pneumonia on imaging with thick dark sputum production today, febrile 101 on admission, placed on Ceftriaxone and Azithromycin. Patient feels well today, no pain, coughing up thick yellow/brown sputum, breathing comfortably, able to walk with PT. 1. RLL pneumonia 2. Fall 3. Dehydration 4. Rheumatoid arthritis Plan - Continue on general medicine - Continue Ceftriaxone and Azithromycin - Send sputum culture - IV hydration - Continue home medications - Continue to work with PT - DVT PPx - Potential discharge tomorrow - Check chemistry and CPK tomorrow Plan - Continue on general medicine - Continue Ceftriaxone and Azithromycin - Send sputum culture - IV hydration - Continue home medications - Continue to work with PT - DVT PPx - Potential discharge tomorrow - Check chemistry and CPK tomorrow
[2017-08-30 09:56] LABS: ABSOLUTE BASOPHIL COUNT 0.1 /CUMM (0.0-0.2); ABSOLUTE EOSINOPHIL COUNT 0.1 /CUMM (0.0-0.7); ABSOLUTE GRANULOCYTE CT 6.3 /CUMM (1.4-6.5); ABSOLUTE LYMPH COUNT 1.3 /CUMM (1.2-3.4); ABSOLUTE MONOCYTE COUNT 0.3 /CUMM (0.10-0.60); BASOPHIL % 1.3 % (0.0-2.0); EOSINOPHIL % 1.7 % (0-5); GRANULOCYTE % 77.4 % (42.2-75.2); HEMATOCRIT 37.5 % (37-47); MEAN CORPUSCULAR HGB 30.1 PG (27.0-31.0); MEAN CORPUSCULAR VOLUME 91.2 FL (81.0-99.0); MEAN PLATELET VOLUME 8.3 FL (7.4-10.4); PLATELET COUNT 226 /CUMM (130-400); RBC DISTRIBUTION WIDTH 14.4 % (11.5-14.5); RED BLOOD CELL CT 4.11 /CUMM (4.20-5.40); WHITE BLOOD CELL COUNT 8.1 /CUMM (4.8-10.8)
[2017-08-30 14:22] VITALS: BP 130/60
[2017-08-30 23:30] VITALS: BP 132/64
[2017-08-31 07:49] VITALS: BP 144/70
[2017-08-31 08:24] LABS: ABSOLUTE BASOPHIL COUNT 0 /CUMM (0.0-0.2); ABSOLUTE EOSINOPHIL COUNT 0.3 /CUMM (0.0-0.7); ABSOLUTE GRANULOCYTE CT 6.5 /CUMM (1.4-6.5); ABSOLUTE LYMPH COUNT 1.5 /CUMM (1.2-3.4); ABSOLUTE MONOCYTE COUNT 0.7 /CUMM (0.10-0.60); BASOPHIL % 0.5 % (0.0-2.0); EOSINOPHIL % 3.4 % (0-5); GRANULOCYTE % 71.2 % (42.2-75.2); HEMATOCRIT 34.3 % (37-47); MEAN CORPUSCULAR HGB 30.3 PG (27.0-31.0); MEAN CORPUSCULAR HGB CONC 32.9 G/DL (33.0-37.0); MEAN CORPUSCULAR VOLUME 92.1 FL (81.0-99.0); PLATELET COUNT 199 /CUMM (130-400); RBC DISTRIBUTION WIDTH 14.4 % (11.5-14.5); RED BLOOD CELL CT 3.72 /CUMM (4.20-5.40); WHITE BLOOD CELL COUNT 9.1 /CUMM (4.8-10.8)
--- NOTE | 2017-08-31 08:46 | PN- Housestaff ---
Zari CARNEY,Pk 08/31/17 0846: Subjective Follow-up For: Fall pneumonia Subjective: remains afebrile ambulating independently h/o copd somewhat productive cough no significant dyspnea foot pain improved Review of Systems Constitutional: Reports: see HPI. Objective Last 24 Hrs of Vital Signs/I&O Vital Signs Date Time Temp Pulse Resp B/P B/P Pulse O2 O2 Flow FiO2 Mean Ox Delivery Rate 08/31 09 98.6 74 20 144/70 08/31 0923 98.6 74 20 144/70 08/31 0910 94 Room Air Room Air 08/31 0749 98.6 74 20 144/70 94 Room Air 08/31 0000 Room Air 08/30 2330 98.0 82 22 132/64 93 08/30 2108 70 146/60 08/30 1837 93 Room Air 08/30 1732 86 Intake & Output 08/31 1600 08/31 0800 08/31 0000 Intake Total 280 180 Output Total 300 Balance -20 180 Intake, Oral 280 180 Output, Urine 300 Physical Exam General Appearance: Alert, Oriented X3, Cooperative, No Acute Distress Lungs: Clear to Auscultation, Normal Air Movement Abdomen: Normal Bowel Sounds, Soft, No Tenderness, No Masses Extremities: No Clubbing, No Cyanosis, No Edema, Normal Pulses Current Medications: Current Medications Sig/Maya Start time Last Medication Dose Route Stop Time Status Admin Acetaminophen 650 MG Q6P PRN 08/29 1445 DCD PO Acetaminophen 1,000 MG Q6P PRN 08/29 1445 DCD IV Albuterol Sulfate 3 ML BID 08/30 1000 DCD 08/31 INH 0909 Albuterol Sulfate 3 ML Q6P PRN 08/29 1500 DCD INH Amlodipine Besylate 5 MG DAILY 08/29 1448 DCD 08/31 PO 0923 Amoxicillin/ 875 MG ONCE ONE 08/31 1445 DC 08/31 Clavulanate Potassium PO 08/31 1446 1501 Aspirin 81 MG DAILY 08/29 1448 DCD 08/31 PO 0923 Atorvastatin Calcium 40 MG 1700 08/29 1700 DCD 08/30 PO 1730 Azithromycin 500 MG DAILY 08/31 1400 DC Dextrose/Water 250 ML IV Ceftriaxone Sodium 1,000 MG DAILY 08/30 1107 DC 08/31 IV 0923 Cholecalciferol 1,000 IU DAILY 08/29 1448 DCD 08/31 PO 0922 Digoxin 0.125 MG 1700 08/29 1700 DCD 08/30 PO 1732 Diltiazem HCl 30 MG BID 08/29 1449 DCD 08/31 PO 0923 Enoxaparin Sodium 40 MG DAILY 08/29 1443 DCD SC Fluticasone 2 PUF BID 08/29 2200 DCD 08/31 Propionate INH 1125 Ipratropium [place] 2.5 ML BID 08/30 1000 DCD 08/31 INH 0909 Levothyroxine Sodium 0.05 MG DAILY AC 08/29 1450 DCD 08/31 PO 0638 Midodrine 2.5 MG QAM 08/30 1000 DCD 08/31 PO 0922 Patient Medication 1 ED ONE ONE 08/31 1545 [place] Teaching ED 08/31 1546 Patient Medication 1 ED ONE ONE 08/31 1545 [place] Teaching ED 08/31 1546 Prednisone 5 MG DAILY 08/29 1450 DCD 08/31 PO 0923 Last 24 Hrs of Lab/Jag Results Last 24 Hrs of Labs/Mics: Laboratory Tests 08/31/17 0738: Anion Gap 11, Estimated GFR > 60, BUN/Creatinine Ratio 17.5, Creatine Kinase 655 H, CBC w Diff NO MAN DIFF REQ, RBC 3.72 L, MCV 92.1, MCH 30.3, MCHC 32.9 L, RDW 14.4, MPV 8.0, Gran % 71.2, Lymphocytes % 17.0 L, Monocytes % 7.9, Eosinophils % 3.4, Basophils % 0.5, Absolute Granulocytes 6.5, Absolute Lymphocytes 1.5, Absolute Monocytes 0.7 H, Absolute Eosinophils 0.3, Absolute Basophils 0 Microbiology 08/30 1904 LOWER RESP: Respiratory Culture - RES GRAM NEGATIVE RODS 08/30 1904 LOWER RESP: Gram Stain - RES 08/30 1699 URINE ROUT: Legionella Antigen - COMP 08/30 1699 URINE ROUT: Streptococcus pneumoniae Antigen (M - COMP Assessment/Plan Assessment: 82-year-old female with past medical history significant for COPD not on home oxygen, hypertension, hypothyroidism, hyperlipidemia, cholecystectomy, hysterectomy, spinal fusion, b/l knee replacementa, and rheumatoid arthritis presented to the emergency department after a fall. Sepsis secondary to pneumonia: Leukocytosis, tachycardia, lactic acidemia, tmax 100.1 Discharge on augmentin to complete antibiotic course TRDarius agarwal, h/o copd Sputum culture + GNR Bilateral foot pain with mechanical fall: Foot x-ray showed swelling of.some left foot, base of proximal phalanx fifth toe fracture Evaluated by podiatry and physical therapy, no weight bearing restriction Ambulated independently CK peaked around 800 decreasing today History of rheumatoid arthritis: Bilateral knee replacements and foot surgeries Continue daily prednisone 5mg AAA: Progressive interval increase infrarenal aortic aneurysm Currently measuring 4.2 x 4.0 cm, 3.7 x 3.7 cm (08/2016), 2.7 x 2.9 cm (06/2012 ). Outpatient Vascular surgery follow up pAfib Recently started on cardizem, digoxin for atrial fibrillation, event monitor outpt Had been sinus rhythm on previous echo LVEF wnl Digoxin 0.9 Lung nodule: New 0.5 x 0.8 cm nodular opacity in the left lung base in the lower lobe anteriorly Consider follow-up chest CT in 6 months. COPD: TRC evaluation Hypertension: Continue amlodipine 5 mg daily Rheumatoid arthritis: Continue prednisone 5 mg daily Hypothyroidism: Continue levothyroxine 50 g daily Hyperlipidemia: Continue lovastatin 40 daily Orthostatic hypotension: Continue midodrine 2.5 mg daily Regular diet DVT ppx-lovenox 40mg subcutaneous daily DNR/DNI Problem List: 1. COPD exacerbation 2. Gait instability 3. S/P FALL 4. Rheumatoid arthritis Pain Ratin Pain Location: n/a Pain Goal: Pain 4 or less Pain Plan: prn Tomorrow's Labs & Rationales: none, discharge Flavio Demarco MD 08/31/17 1117: Attending MD Review Statement Attending Statement Attending MD Statement: examined this patient, discuss w/resident/PA/STERILE SUPPLY TECHNICIAN, agreed w/resident/PA/STERILE SUPPLY TECHNICIAN, reviewed EMR data (avail) Attending Assessment/Plan: 82F PMH rheumatoid arthritis status post successful rodriges metatarsal head resection on the left foot, HTN, HLD presenting with fall, down for several hours, following right foot pain that has since resolved, with labs showing dehydration, mild CPK increase, and evidence of RLL pneumonia on imaging with thick dark sputum production today, febrile 101 on admission, placed on Ceftriaxone and Azithromycin. Patient feels well today, no pain, coughing up thick yellow/brown sputum, breathing comfortably, able to walk with PT. 1. RLL pneumonia 2. Fall 3. Dehydration 4. Rheumatoid arthritis Plan - Stable for discharge home - Continue Augmentin and Azithromycin - Continue home medications
[2017-08-31 09:23] VITALS: BP 144/70
[2017-08-31] MEDS ORDERED: AUGMENTIN 875-1 EACH PO ×2 (10:53→11:45)
--- NOTE | 2017-08-31 11:45 | Discharge Summary ---
Hospital Course Allergies: Coded Allergies: hydromorphone (From DILAUDID) (Severe, SYNCOPE 04/21/16) morphine (Severe, SYNCOPE 04/21/16) oxycodone (Severe, UNKNOWN 09/19/15) tramadol (Severe, SYNCOPE 04/21/16) Sulfa (Sulfonamide Antibiotics) (Intermediate, HIVES 09/19/15) latex (Intermediate, BAD RASH 06/15/16) shrimp (HIVES, RASH 09/19/15) Discharge Instructions Medications at Discharge Discharge Medications: Continue taking these medications: Levothyroxine Sodium (Levothyroxine Sodium) 50 MCG TABLET 1 Tablet ORAL DAILY BEFORE BREAKFAST Comments: NOT GIVEN IN HOSPITAL Lovastatin (Lovastatin) 40 MG TABLET 1 Tablet ORAL DAILY Instructions: with food Comments: ATORVASTATIN 20 MG GIVEN IN HOSPITAL Last Taken: 04/05/17 Time: 1718 Amlodipine Besylate (Norvasc) 5 MG TABLET 1 Tablet ORAL DAILY Comments: Last Taken: 04/06/17 Time: 0918 Albuterol Sulfate (Proair Hfa) 8.5 GM HFA.AER.AD 2 Puff Inhale through mouth EVERY 4-6 HOURS NEEDED as needed for COPD Instructions: Reason to Stop at ADM: TR NEBS ORDERS Comments: PROVENTIL GIVEN WHILE IN HOSPITAL Last Taken: 04/06/17 Time: 1135 Aspirin (Children's Aspirin) 81 MG TAB.CHEW 1 Tablet ORAL DAILY Comments: NOT GIVEN IN HOSPITAL Fluticasone/Salmeterol (Advair 250-50 Diskus) 1 EACH BLST.W.DEV 1 Puff Inhale through mouth TWICE DAILY Instructions: Reason to Stop at ADM: TRC NEBS ORDERS Comments: NOT GIVEN IN HOSPITAL Acetaminophen (Tylenol Arthritis) 650 MG TABLET.ER 1 Tablet ORAL TWICE DAILY Comments: NOT GIVEN IN HOSPITAL Ipratropium/Albuterol Sulfate (Iprat-Albut 0.5-3(2.5) MG/3 Ml) 0.5 MG-3 MG (2.5 MG BASE)/3 ML AMPUL.NEB 1 Inhalation ORAL DAILY as needed for SHORTNESS OF BREATH Comments: ATROVENT GIVEN IN HOSPITAL Last Taken: 04/06/17 Time: 1135 Midodrine HCl (Midodrine HCl) 2.5 MG TABLET 1 Tablet ORAL Every Morning Comments: NOT GIVEN IN HOSPITAL Prednisone (Prednisone) 5 MG TABLET 1 Tablet ORAL DAILY Qty = 90 Digoxin (Digoxin) 125 MCG TABLET 1 Tablet ORAL DAILY Cholecalciferol (Vitamin D3) (Vitamin D3) 2,000 UNIT TABLET 1 Tablet ORAL DAILY Diltiazem HCl (Diltiazem HCl) 30 MG TABLET 1 Tablet ORAL TWICE DAILY Qty = 90 Start taking the following new medications: Amoxicillin/Potassium Clav (Augmentin 875-125 Tablet) 875 MG-125 MG TABLET 1 Tablet ORAL TWICE DAILY Qty = 6 No Refills Instructions: .
--- NOTE | 2017-08-31 11:45 | Patient Discharge Instructions ---
Discharge Instructions General Discharge Information You were seen/treated for: FALL AND PNEUMONIA Special Instructions: please follow up with your primary care physician Acute Coronary Syndrome Inclusion Criteria At DC or during hospital stay patient has or had the following: ACS DIAGNOSIS No Discharge Core Measures Meds if any: Prescribed or Continued at Discharge Meds if any: NOT Prescribed or Continued at Discharge Congestive Heart Failure Inclusion Criteria At DC or during hospital stay patient has or had the following: CHF DIAGNOSIS No Discharge Core Measures Meds if any: Prescribed or Continued at Discharge Meds if any: NOT Prescribed or Continued at Discharge Cerebrovascular accident Inclusion Criteria At DC or during hospital stay patient has or had the following: CVA/TIA Diagnosis No Discharge Core Measures Meds if any: Prescribed or Continued at Discharge Meds if any: NOT Prescribed or Continued at Discharge Venous thromboembolism Inclusion Criteria VTE Diagnosis No VTE Type NONE VTE Confirmed by (Test) NONE Discharge Core Measures - Per Current guidelines, there needs to be overlap - treatment for the first 5 days of Warfarin therapy. - If discharged on Warfarin prior to 5 days of - overlap therapy, the patient will need to be - assessed for post discharge needs including - *Post discharge parental anticoagulation - *Warfarin and/or parental anticoagulation education - *Follow up date to check INR post discharge At least 5 days overlap therapy as Inpatient No Meds if any: Prescribed or Continued at Discharge Note: Overlap Therapy is Warfarin and Anticoagulant Meds if any: NOT Prescribed or Continued at Discharge
== END 2017-08-31 16:00 | DRG 605 ==
LOC: ERH 08:04 → ERHI 12:34 → 2NA 12:34 → ENRESERV 13:42 → EDTRNSPT 15:30 → ENTRNSPT 15:30 → EDTRNSPTSTS 15:49 → 2NA 16:02 → CMPTRNSPT 16:12 → 2NA 08-31 10:03 → ENPENDDIS 08-31 11:45 → DELTRNSPT 08-31 15:32 → 2NA 08-31 16:00
PROVIDERS: Hospitalist; Physician Assistant Medical
DX: S90.31XA Contusion of right foot, initial encounter (principal); E87.2 Acidosis; J44.9 Chronic obstructive pulmonary disease, unspecified; M06.9 Rheumatoid arthritis, unspecified; E03.9 Hypothyroidism, unspecified; E78.5 Hyperlipidemia, unspecified; D72.829 Elevated white blood cell count, unspecified; M79.672 Pain in left foot; I10 Essential (primary) hypertension; Z98.1 Arthrodesis status; W18.30XA Fall on same level, unspecified, initial encounter; I71.4 Abdominal aortic aneurysm, without rupture; R91.1 Solitary pulmonary nodule; I95.1 Orthostatic hypotension; M79.671 Pain in right foot
CPT/HCPCS: 2NASP; 36415; 36592; 73610-RT; 73620-RT; 73630-LT; 74176; 81001; 82436; 87040; 87070; 87071; 87449; 87450; 87804; 87804-59; 93005; 93010; 96374; 96375; 97161-GP; 97530-GO; J0131; J0456; J0696; J1650; J3490; J7060; J7512